=== PATIENT | male | born 1940 | race Caucasian/White ===

== ENCOUNTER 2018-02-01 08:48 | Outpatient (CLI) | payer OTHER, SELFPAY ==
[2018-02-01 09:30] LABS: Abs Immature Grans 0.01 k/cumm (0.0-0.09); Absolute Basophil Count 0.03 k/cumm (0.0-0.2); Absolute Eosinophil Count 0.27 k/cumm (0.0-0.7); Absolute Lymphocyte Count 0.96 k/cumm (1.2-3.4); Absolute Monocyte Count 0.47 k/cumm (0.11-0.7); Basophils % 0.7; Eosinophils % 6.5; HCT 38.5 % (40.0-50.0); HGB 12.9 g/dL (13.5-17.5); Immature Grans % 0.2; Lymphocytes % 23.2; Mean Corp. HGB Concentration 33.5 g/dL (32.0-36.0); Mean Corpuscular Hemoglobin 31.1 pg (27.0-33.0); Mean Corpuscular Volume 92.8 fL (80-95); Mean Platelet Volume 9.6 fL (8.0-11.0); Monocytes % 11.4; Platelet Count 283 x1000/uL (130-400); RBC 4.15 m/cumm (4.50-6.00); RBC Distribution Width 13.1 % (11.8-14.1); White Blood Cell Count 4.13 k/cumm (4.4-10.8)
[2018-02-01 10:44] LABS: Vitamin D 25 Total 56.1 ng/ml (30-100)
[2018-02-01 10:46] LABS: ALT 17 U/L (12-78); AST 17 U/L (15-37); Albumin 3.8 g/dL (3.4-5.0); Alkaline Phosphatase 75 U/L (46-116); Anion Gap 9.5 mmol/L (3-11); BUN 12 mg/dL (7-18); Bilirubin, Total 0.4 mg/dL (0.2-1.0); CO2 28.5 mmol/L (21.0-32.0); CREATININE 0.99 mg/dL (0.70-1.30); Chloride 100 mmol/L (98-107); Folate 16.9 ng/mL (8.6-20.0); Glucose 116 mg/dL (70-100); Potassium 4.1 mmol/L (3.5-5.1); Sodium 138 mmol/L (136-145); TSH (W/Ref FT4) 1.91 uIU/mL (0.358-3.74); Total Protein 8.5 g/dL (6.4-8.2); Vitamin B12 452 pg/mL (193-986)
== END 2018-02-01 09:08 ==
LOC: LBO 09:12 → NCHCO 09:17
PROVIDERS: PCP Family Medicine; Visit Provider Family Medicine
DX: R41.3 Other amnesia (principal); E87.1 Hypo-osmolality and hyponatremia; D70.9 Neutropenia, unspecified; F33.2 Major depressive disorder, recurrent severe without psychotic features
CPT/HCPCS: 36415; 80053; 82306; 82607; 82746; 84443; 85025

== ENCOUNTER 2018-05-31 07:56 | Outpatient (CLI) | payer OTHER, SELFPAY ==
[2018-05-31 08:30] LABS: Abs Immature Grans 0.01 k/cumm (0.0-0.09); Absolute Basophil Count 0.03 k/cumm (0.0-0.2); Absolute Eosinophil Count 0.13 k/cumm (0.0-0.7); Absolute Monocyte Count 0.36 k/cumm (0.11-0.7); Absolute Neutrophil Count 3.14 k/cumm (1.2-6.7); Basophils % 0.7; Eosinophils % 2.8; HCT 38.4 % (40.0-50.0); HGB 12.5 g/dL (13.5-17.5); Immature Grans % 0.2; Lymphocytes % 19.7; Mean Corp. HGB Concentration 32.6 g/dL (32.0-36.0); Mean Corpuscular Hemoglobin 31.6 pg (27.0-33.0); Mean Platelet Volume 9.9 fL (8.0-11.0); Monocytes % 7.9; Neutrophils % 68.7; Platelet Count 274 x1000/uL (130-400); RBC 3.96 m/cumm (4.50-6.00); RBC Distribution Width 12.9 % (11.8-14.1); White Blood Cell Count 4.57 k/cumm (4.4-10.8)
[2018-05-31 08:37] LABS: Hemoglobin A1C 5.5 % (4.5-6.2)
[2018-05-31 09:53] LABS: ALT 15 U/L (12-78); AST 15 U/L (15-37); Albumin 3.6 g/dL (3.4-5.0); Alkaline Phosphatase 81 U/L (46-116); Anion Gap 10.1 mmol/L (3-11); BUN 23 mg/dL (7-18); Bilirubin, Total 0.6 mg/dL (0.2-1.0); CO2 28.9 mmol/L (21.0-32.0); CREATININE 1.19 mg/dL (0.70-1.30); Calcium 9.9 mg/dL (8.5-10.1); Chloride 102 mmol/L (98-107); Cholesterol 141 mg/dL (50-200); Estimated GFR 59.28 (mL/min/1.73m2); Glucose 113 mg/dL (70-100); HDL Cholesterol 57 mg/dL (40-60); LDL CHOLESTEROL 69 mg/dL (<100); Potassium 4.1 mmol/L (3.5-5.1); Sodium 141 mmol/L (136-145); TSH (W/Ref FT4) 1.67 uIU/mL (0.358-3.74); Total Protein 8.7 g/dL (6.4-8.2); Triglyceride 76 mg/dL (30-150)
== END 2018-05-31 08:16 ==
PROVIDERS: PCP Family Medicine; Visit Provider Nurse Practitioner Psychiatric/Mental Health
DX: F32.2 Major depressive disorder, single episode, severe without psychotic features (principal); Z79.899 Other long term (current) drug therapy; Z13.6 Encounter for screening for cardiovascular disorders
CPT/HCPCS: 36415; 80053; 80061; 83721; 83036; 84443; 85025; 93005; 93010

== ENCOUNTER → 2018-07-07 12:26 | Outpatient (BNVA) | payer OTHER, SELFPAY | PROVIDERS: PCP Family Medicine; Referring Provider Family Medicine; Visit Provider Nurse Practitioner Adult Health | DX: G31.84 Mild cognitive impairment of uncertain or unknown etiology; R29.6 Repeated falls; G25.2 Other specified forms of tremor; R51 Headache | CPT/HCPCS: 99215 ==

== ENCOUNTER 2018-07-14 03:54 | Outpatient (CLI) | payer OTHER, SELFPAY ==
--- NOTE | 2018-07-14 15:24 | DI.MRI_ITS ---
SYMPTOMS/DIAGNOSIS: NEW HEADACHES, GAIT IMBALANCE, MEMORY DEFICIT, R51, R26.9 BRAIN MRI: The study was conducted according to the usual protocol. T2 sagittal, T2 axial, diffusion weighted axial, T2 axial HEMO, T1 axial, T2 axial FLAIR BLADE pulse sequences were performed. There is no evidence of a hemorrhage, mass or infarct. There are a few small regions of increased signal in the frontoparietal white matter bilaterally consistent with small vessel disease. The ventricles are unremarkable. The normal flow void is demonstrated in the cerebral vessels. There are small polyps or retention cysts involving the maxillary antra and there is some increased signal in the left frontal sinus. No mastoid pathology is demonstrated. Note is made of a rounded artifact projected over the high right posterior parietal portion of the skull. SUMMARY: No evidence of a hemorrhage, mass or infarct. Findings of minimal small vessel disease with incidental note made of left frontal sinus inflammatory changes and bilateral maxillary sinus polyps or retention cysts.
== END 2018-07-14 04:14 ==
PROVIDERS: PCP Family Medicine; Visit Provider Nurse Practitioner Adult Health
DX: R51 Headache (principal); R26.9 Unspecified abnormalities of gait and mobility; R41.3 Other amnesia; J32.9 Chronic sinusitis, unspecified
CPT/HCPCS: 70551

== ENCOUNTER 2018-07-14 04:27 | Outpatient (CLI) | payer OTHER, SELFPAY ==
[2018-07-14 11:51] LABS: ESR 101 MM/HR (1-20)
[2018-07-15 13:44] LABS: Comment SEE COMMENTS
== END 2018-07-14 04:47 ==
PROVIDERS: PCP Family Medicine; Visit Provider Nurse Practitioner Adult Health
DX: G62.9 Polyneuropathy, unspecified (principal)
CPT/HCPCS: 36415; 85652; 84165; 86320

== ENCOUNTER 2018-07-21 09:05 | Outpatient (CLI) | payer OTHER, SELFPAY ==
[2018-07-21 10:15] LABS: C-Reactive Protein 0.15 mg/dL (0.0-0.3)
[2018-07-22 12:19] LABS: Rheumatoid Factor <8 IU/mL (<12.5)
[2018-07-22 13:46] LABS: ANA Interpretation Positive (NEGAT); ANA Titer Pattern 1:160 Speckled
== END 2018-07-21 09:25 ==
PROVIDERS: PCP Family Medicine; Visit Provider Nurse Practitioner Adult Health
DX: R70.0 Elevated erythrocyte sedimentation rate (principal); G62.9 Polyneuropathy, unspecified
CPT/HCPCS: 36415; 86038; 86140; 86431

== ENCOUNTER → 2018-07-27 14:18 | Outpatient (BNVA) | payer OTHER, SELFPAY | PROVIDERS: PCP Family Medicine; Visit Provider Psychiatry & Neurology Neurology | DX: G25.0 Essential tremor (principal); G24.01 Drug induced subacute dyskinesia; I95.1 Orthostatic hypotension; G62.9 Polyneuropathy, unspecified; R51 Headache; R41.3 Other amnesia | CPT/HCPCS: 99215 ==

== ENCOUNTER 2018-07-28 08:45 | Outpatient (CLI) | payer OTHER, SELFPAY ==
[2018-07-29 11:16] LABS: SS-A Antibody 2.6 Units (<20); SS-B (La) Ab, IgG 2.8 Units (<20); Sm (Smith) Ab, IgG 2.8 Units (<20)
[2018-07-29 12:58] LABS: dsDNA Ab, IgG <12.3 IU/mL (<30)
== END 2018-07-28 09:05 ==
PROVIDERS: PCP Family Medicine; Visit Provider Psychiatry & Neurology Neurology
DX: G62.9 Polyneuropathy, unspecified (principal)
CPT/HCPCS: 36415; 86225; 86235

== ENCOUNTER → 2018-08-11 08:34 | Outpatient (BNVA) | payer OTHER, SELFPAY | PROVIDERS: PCP Family Medicine; Visit Provider Nurse Practitioner Adult Health | DX: R51 Headache (principal); G62.9 Polyneuropathy, unspecified; G31.84 Mild cognitive impairment of uncertain or unknown etiology; R26.89 Other abnormalities of gait and mobility | CPT/HCPCS: 99213 ==

== ENCOUNTER → 2018-09-27 10:42 | Outpatient (BNVA) | payer OTHER, SELFPAY | PROVIDERS: PCP Family Medicine; Visit Provider Psychiatry & Neurology Neurology | DX: G62.9 Polyneuropathy, unspecified (principal); D47.2 Monoclonal gammopathy; G25.0 Essential tremor; G20 Parkinson's disease; G24.01 Drug induced subacute dyskinesia; I95.1 Orthostatic hypotension; R51 Headache; R41.3 Other amnesia | CPT/HCPCS: 99214 ==

== ENCOUNTER 2018-11-08 00:31 | Outpatient (CLI) | payer OTHER, SELFPAY ==
--- NOTE | 2018-11-08 09:19 | DI.US_ITS ---
SYMPTOM/DIAGNOSIS: RT CALF PAIN, M79.661, RT LEG EDEMA R60.0, NOTED SWELLING AND PAIN S/P DRIVE TO PA. ? DVT RIGHT LOWER EXTREMITY ULTRASOUND: The deep veins of the right lower extremity were evaluated sonographically. They show normal compression, augmentation and color flow. There is no evidence of a deep venous thrombus. The saphenofemoral junction appears unremarkable. IMPRESSION: No evidence of a right lower extremity deep venous thrombus.
== END 2018-11-08 00:51 ==
PROVIDERS: PCP Family Medicine; Visit Provider Family Medicine
DX: M79.661 Pain in right lower leg (principal); R60.0 Localized edema
CPT/HCPCS: 93971

== ENCOUNTER → 2018-11-09 08:30 | Outpatient (BNVA) | payer OTHER, SELFPAY | PROVIDERS: PCP Family Medicine; Visit Provider Psychiatry & Neurology Neurology | DX: G62.9 Polyneuropathy, unspecified (principal); G20 Parkinson's disease; G24.01 Drug induced subacute dyskinesia; I95.1 Orthostatic hypotension; R51 Headache; R41.3 Other amnesia | CPT/HCPCS: 99214 ==

== ENCOUNTER 2018-11-18 09:56 | Outpatient (CLI) | payer OTHER, SELFPAY ==
[2018-11-18 11:32] LABS: Vitamin D 25 Total 56.2 ng/ml (30-100)
== END 2018-11-18 10:16 ==
PROVIDERS: PCP Family Medicine; Visit Provider Nurse Practitioner Psychiatric/Mental Health
DX: F32.2 Major depressive disorder, single episode, severe without psychotic features (principal); Z79.899 Other long term (current) drug therapy
CPT/HCPCS: 36415; 82306

== ENCOUNTER → 2018-12-27 08:08 | Outpatient (BNVA) | payer OTHER, SELFPAY | PROVIDERS: PCP Family Medicine; Visit Provider Nurse Practitioner Adult Health | DX: R51 Headache (principal); R41.89 Other symptoms and signs involving cognitive functions and awareness; G62.9 Polyneuropathy, unspecified | CPT/HCPCS: 99213 ==

== ENCOUNTER 2019-01-10 13:45 | Outpatient (CLI) | payer OTHER, SELFPAY ==
[2019-01-10 14:38] LABS: HCT 35.6 % (40.0-50.0); HGB 12.1 g/dL (13.5-17.5); Mean Corpuscular Hemoglobin 33.2 pg (27.0-33.0); Mean Corpuscular Volume 97.8 fL (80-95); Platelet Count 293 x1000/uL (130-400); RBC 3.64 m/cumm (4.50-6.00); RBC Distribution Width 13.2 % (11.8-14.1); White Blood Cell Count 5.38 k/cumm (4.4-10.8)
--- NOTE | 2019-01-10 14:43 | DI.RAD_ITS ---
EXAM: XR CHEST 2V PA LATERAL CLINICAL HISTORY: CHEST PAIN, ATYPICAL R07.89. TECHNIQUE: 2D digital imaging was performed. COMPARISON: CHEST 2 VIEWS PA,LAT from 01/11/2016 FINDINGS: LUNGS: Clear. No pleural effusion or pneumothorax is identified. HEART: Normal. MEDIASTINUM: The pulmonary vasculature is within normal limits. OTHER FINDINGS:Normal. Bones: Age appropriate degenerative changes are seen in the spine. IMPRESSION: No acute pulmonary findings.
[2019-01-10 15:19] LABS: ALT 18 U/L (16-63); AST 9 U/L (15-37); Albumin 3.7 g/dL (3.4-5.0); Alkaline Phosphatase 72 U/L (46-116); Anion Gap 9.9 mmol/L (3-11); BUN 15 mg/dL (7-18); Bilirubin, Total 0.3 mg/dL (0.2-1.0); CO2 29.1 mmol/L (21.0-32.0); Calcium 9.7 mg/dL (8.5-10.1); Chloride 105 mmol/L (98-107); Glucose 149 mg/dL (70-100); Lipase 63 U/L (73-393); Potassium 3.7 mmol/L (3.5-5.1); Sodium 144 mmol/L (136-145); Total Protein 8.5 g/dL (6.4-8.2)
== END 2019-01-10 14:05 ==
PROVIDERS: PCP Family Medicine; Visit Provider Family Medicine
DX: R10.11 Right upper quadrant pain (principal); R07.89 Other chest pain
CPT/HCPCS: 36415; 80053; 83690; 85027; 71046

== ENCOUNTER 2019-01-14 16:26 | Emergency (ER) | payer OTHER, SELFPAY ==
[2019-01-14] VITALS (32 sets, daily range): BP systolic 136–183; BP diastolic 73–101; PULSE 76–94; RESP 11–21; O2SAT 84–98
--- NOTE | 2019-01-14 17:14 | DI.CT_ITS ---
EXAM: CT HEAD WO CLINICAL HISTORY: dizzy. COMPARISON: No exams were available for comparison FINDINGS: There is no evidence of an intra or extra-axial hemorrhage, mass or midline shift. There is nothing to suggest a territorial infarct. Patchy regions of hypodensity in the periventricular and subcortic al white matter would be consistent with small vessel disease. There is generalized atrophic changes with some prominence of the ventricles. There is no skull fracture. There is mucosal thickening in t he left frontal and bilateral ethmoid and sphenoid and maxillary sinuses. The mastoid air cells are well aerated. The soft tissues are unremarkable. IMPRESSION: No acute intracranial abnormality is identified.
--- NOTE | 2019-01-14 17:34 | DI.RAD_ITS ---
EXAM: XR CHEST 2V PA LATERAL INDICATION: recent chest pain. COMPARISON: XR CHEST 2V PA LATERAL from 01/10/2019 TECHNIQUE: 2D digital imaging was performed. FINDINGS: The lungs are well expanded and free of infiltrate. There is no pleural effusion. The heart is not en larged. The hilar structures, mediastinum and tracheal air column are intact. Old healed left rib f ractures are identified. IMPRESSION: There is no evidence of acute cardiopulmonary disease
[2019-01-14 17:52] LABS: Absolute Basophil Count 0.01 k/cumm (0.0-0.2); Absolute Monocyte Count 0.37 k/cumm (0.11-0.7); Basophils % 0.2; Eosinophils % 1.9; HCT 37.8 % (40.0-50.0); HGB 12.5 g/dL (13.5-17.5); Lymphocytes % 16.7; Mean Corp. HGB Concentration 33.1 g/dL (32.0-36.0); Mean Corpuscular Hemoglobin 31.5 pg (27.0-33.0); Mean Corpuscular Volume 95.2 fL (80-95); Mean Platelet Volume 9.5 fL (8.0-11.0); Monocytes % 6.9; Neutrophils % 74.3; Platelet Count 302 x1000/uL (130-400); RBC 3.97 m/cumm (4.50-6.00); RBC Distribution Width 12.8 % (11.8-14.1); White Blood Cell Count 5.38 k/cumm (4.4-10.8)
[2019-01-14] MEDS: Lisinopril 5 MG TAB PO (18:09)
[2019-01-14 18:11] LABS: ALT 14 U/L (16-63); AST 12 U/L (15-37); Albumin 3.7 g/dL (3.4-5.0); Alkaline Phosphatase 76 U/L (46-116); Anion Gap 8.9 mmol/L (3-11); BUN 11 mg/dL (7-18); Bilirubin, Total 0.4 mg/dL (0.2-1.0); CO2 31.1 mmol/L (21.0-32.0); CREATININE 1.06 mg/dL (0.70-1.30); Calcium 9.6 mg/dL (8.5-10.1); Chloride 101 mmol/L (98-107); Glucose 132 mg/dL (70-100); Magnesium 2.1 mg/dL (1.8-2.4); Potassium 3.6 mmol/L (3.5-5.1); Sodium 141 mmol/L (136-145); Troponin I < 0.05 ng/mL (0.00-0.06)
--- NOTE | 2019-01-14 18:24 | W.ED.GENAD ---
Discharge Plan Disposition Patient Disposition: HOME Discharge Details Chief Complaint: GenMedical Clinical Impression: Generalized weakness, Frequent falls, Hypertension Primary Care Provider: Maria R Woods ED Provider: Familia Coughlin Home Meds and New Rx's Prescriptions: New lisinopril 5 mg tablet 5 mg PO DAILY Qty: 30 RF: 0 Continued lamotrigine [Lamictal] 100 mg tablet 200 mg PO DAILY RF: 0 gabapentin 100 mg capsule 100 mg PO TID RF: 0 pyridostigmine bromide 60 mg tablet 30 mg PO DIRECTED Qty: 90 RF: 3 cyanocobalamin (vitamin B-12) [Vitamin B-12] 1,000 MCG tablet 1,000 mcg PO DAILY RF: 0 omeprazole 40 MG capsule,delayed release(DR/EC) 40 mg PO DAILY RF: 0 simvastatin 40 MG tablet 40 mg PO QPM RF: 0 phenelzine 15 mg tablet 15 mg PO HS RF: 0 cholecalciferol (vitamin D3) [Vitamin D3] 2,000 UNIT capsule 2,000 unit PO DAILY RF: 0 Discharge Instructions Instructions: Fall Prevention for Older Adults (ED), Weakness (ED), Hypertension (ED) Additional Instructions: Please contact your primary care physician to arrange follow-up. Monitor your blood pressure over the next couple days. Continue blood pressure medicine as prescribed. Please follow-up with your neurologist. Return to the ER for any worsening or new concerning symptoms. Referrals: Maria R Woods MD [Primary Care Provider] - Discharge Data Discharge Date/Time-TO BE ENTERED AT DEPARTURE: 01/14/19 20:00 Medical Decision Making 18:42 -- 78-year-old male with history of Parkinson's dementia here with frequent falls, generalized weakness, elevated blood pressure over the past 2 weeks. Patient quite hypertensive on arrival with blood pressure of 183/101. According to his PCP, normal blood pressure systolic is around 100 or 110s. Concern for potential hypertensive emergency vs progression and worsening of Parkinson's disease vs less likely CVA. Screening ECG was reviewed and interpreted by me: Normal sinus rhythm 70 bpm, normal axis, nondiagnostic. Patient was reassessed and his blood pressure improved to systolic of 150s. He was given a dose of lisinopril [address] of the head was interpreted by radiology: No acute intracranial hemorrhage, mass-effect or midline shift. There are patchy regions of hypodensity in the periventricular and subcortical white matter likely on the basis of chronic microvascular ischemic disease. Plan to repeat blood pressure and reassess the patient. 19:45 --labs reviewed and nondiagnostic. Creatinine normal. Chest x-ray reviewed and interpreted by radiology: No consolidation or pulmonary edema. Hyperinflated lungs which may represent emphysema. I reviewed all results with the patient. He notes that he is feeling better. Suggested admission for generalized weakness and patient declined. He and his would prefer to go home and are agreeable to continuing lisinopril. They plan to follow-up with Dr. Woods on Thursday. Disposition decision was made weighing the risks and benefits of hospitalization versus outpatient treatment, the risk for further decompensation, and the patient's wishes. The patient was stable and requested discharge. Prior to discharge, my usual and customary return precautions were reviewed with the patient - this included follow-up instructions and reason to return to the emergency department if condition worsens, does not improve as expected, or other new concerns arise. HPI General Mode of arrival: ambulatory. Date/Time Provider Initiated Documentation: 01/14/19 16:48. Limitations to Documentation: no limitations. Information obtained by: patient. HPI Narrative: 78-year-old male with multiple medical problems including Parkinson's dementia, cognitive impairment, here with chief complaint of elevated blood pressure. Patient notes he has had elevated blood pressure over the past 1 to 2 weeks. Blood pressures been as severely elevated and high as 200 systolic. Patient also notes frequent falls over the past week. Patient is a poor historian limiting HPI. He does not believe he has syncope when he falls. He denies dizziness prior to the falls. is concerned that he is generally weak and having difficulty ambulating and this is resulting in falls. I called and spoke with the patient's PCP, Dr. Woods, who notes that she is been monitoring his blood pressure and thought that may be the addition of vraylar has affected blood pressure. She is concerned about potential hypertensive emergency. Related Data Home Medications Medication Instructions Recorded Confirmed cyanocobalamin (vitamin B-12) 1,000 mcg PO DAILY 09/09/12 01/14/19 [Vitamin B-12] omeprazole 40 mg PO DAILY 09/09/12 01/14/19 simvastatin 40 mg PO QPM 09/09/12 01/14/19 cholecalciferol (vitamin D3) 2,000 unit PO DAILY 09/13/14 01/14/19 [Vitamin D3] gabapentin 100 mg capsule 100 mg PO TID cap 11/09/18 01/14/19 pyridostigmine bromide 60 mg tablet 30 mg PO DIRECTED #90 tab 11/09/18 01/14/19 lamotrigine 100 mg tablet 200 mg PO DAILY tab 12/27/18 01/14/19 phenelzine 15 mg tablet 15 mg PO HS tab 12/27/18 01/14/19 lisinopril 5 mg PO DAILY #30 tab 01/14/19 Previous Rx's Medication Instructions Recorded pyridostigmine bromide 60 mg tablet 30 mg PO DIRECTED #90 tab 11/09/18 lisinopril 5 mg PO DAILY #30 tab 01/14/19 Allergies Allergy/AdvReac Type Severity Reaction Status Date / Time Penicillins Allergy Intermediate hands and Unverified 01/14/19 16:39 feet swell General Stated Complaint: GenMedical NEHA: 3 Review of Systems Review of Systems Narrative: Review of systems is limited secondary to dementia Constitutional Constitutional: Denies fever(s) Cardiovascular Cardiovascular: Denies chest pain, Denies syncope, Denies dyspnea and Reports other (Has had some left arm pain intermittently and not currently) Respiratory Respiratory: Denies dyspnea Gastrointestinal Gastrointestinal: Denies abdominal pain Neurologic Neurologic: Denies syncope [facility] Medical History Adenoma of colon (Acute) BPH (benign prostatic hyperplasia) (Chronic) Cognitive impairment (Acute) Depression (Chronic) Dyspepsia (Acute) Frequent headaches (Acute) Hyperlipidemia (Acute) Inguinal hernia (Acute) Lipoma (Acute) Neutropenia (Acute) Non Hodgkin's lymphoma (Chronic) Orthostatic hypotension (Chronic) Parkinsonism (Chronic) Peripheral neuropathy (Chronic) Tardive dyskinesia (Chronic) Thyroid nodule (Acute) Surgical History ankle H/O surgical procedure (Chronic) a. appendectomy b. cholecystectomy c. resection of benign tumor right lung Family History Other Stroke Social History Smoking/Tobacco Use Status: Former Tobacco Use Drug use: Never Household members: spouse What is your relationship status?: Panel score (0-1 are the most socially isolated patients): 1 Do you feel safe at home: Yes Do you feel safe in your relationship?: Yes Exam Const General: cooperative and no acute distress HENMT Head: normocephalic and atraumatic Mouth: moist mucous membranes Eyes Conjunctivae: normal conjunctivae Sclera: normal sclerae EOM: EOM intact bilaterally Neck Neck: trachea midline and supple Resp Auscultation: clear to auscultation bilaterally, no rales, no rhonchi and no wheezes Cardio Jugular venous pressure: no JVD Rate: regular rate and not tachycardic Rhythm: regular rhythm GI Palpation: soft, not firm, no guarding, no masses, not rigid and nontender Skin General skin exam: no rashes or lesions noted Neuro General: alert, awake and tone normal Cognition: abnormal cognition Speech: speech normal Motor: other (strength 4/5 throughout) Sensory Exam: no sensory deficits noted Coordination: [id number] test abnormal (past pointing initially bilateral and then improves) Extrem General: no edema Psych Appearance: grossly normal Course Vital Signs Vital signs: Vital Signs Pulse 84 01/14/19 16:35 Respiratory Rate 18 01/14/19 16:35 Blood Pressure 183/101 H 01/14/19 16:35 Pulse Oximetry 98 01/14/19 16:35 Pulse 76 01/14/19 18:00 Pulse 79 01/14/19 18:01 Respiratory Rate 14 01/14/19 18:01 Respiratory Effort 01/14/19 17:15 Respiratory Depth Normal 01/14/19 17:15 Blood Pressure 154/90 H 01/14/19 18:00 Blood Pressure Mean 105 01/14/19 18:00 Blood Pressure Position Sitting 01/14/19 16:35 Pulse Oximetry 96 01/14/19 18:01 Oxygen Delivery Method Room Air 01/14/19 16:35 Oxygen Flow Rate 0 01/14/19 16:35 Lab/Test Results Lab/Test Results: Laboratory Tests Range/Units 01/14/19 01/14/19 17:45 17:45 WBC (4.4-10.8) k/cumm 5.38 RBC (4.50-6.00) m/cumm 3.97 L Hgb (13.5-17.5) g/dL 12.5 L Hct (40.0-50.0) % 37.8 L MCV (80-95) fL 95.2 H MCH (27.0-33.0) pg 31.5 MCHC (32.0-36.0) g/dL 33.1 RDW (11.8-14.1) % 12.8 Plt Count (130-400) x1000/uL 302 MPV (8.0-11.0) fL 9.5 Immature Gran % 0.0 Neutrophils % 74.3 Lymphocytes % 16.7 Monocytes % 6.9 Eosinophils % 1.9 Basophils % 0.2 Absolute Neutrophils (1.2-6.7) k/cumm 4.00 Absolute Lymphocytes (1.2-3.4) k/cumm 0.90 L Absolute Monocytes (0.11-0.7) k/cumm 0.37 Absolute Eosinophils (0.0-0.7) k/cumm 0.10 Absolute Basophils (0.0-0.2) k/cumm 0.01 Sodium (136-145) mmol/L 141 Potassium (3.5-5.1) mmol/L 3.6 Chloride (98-107) mmol/L 101 Carbon Dioxide (21.0-32.0) mmol/L 31.1 Anion Gap (3-11) mmol/L 8.9 BUN (7-18) mg/dL 11 Creatinine (0.70-1.30) mg/dL 1.06 Estimated GFR/1.73 m2 (mL/min/1.73m2) >= 60.00 Glucose (70-100) mg/dL 132 H Calcium (8.5-10.1) mg/dL 9.6 Magnesium (1.8-2.4) mg/dL 2.1 Total Bilirubin (0.2-1.0) mg/dL 0.4 AST (15-37) U/L 12 L ALT (16-63) U/L 14 L Alkaline Phosphatase (46-116) U/L 76 Troponin I (0.00-0.06) ng/mL < 0.05 Total Protein (6.4-8.2) g/dL 9.0 H Albumin (3.4-5.0) g/dL 3.7
--- NOTE | 2019-01-14 18:35 | DI.VRAD_ITS ---
PROCEDURE INFORMATION: Exam: CT Head without contrast Exam date and time: 01/14/2019 6:19 PM Clinical history: 78 years old, male; Dizziness; Patient HX: Dizzy TECHNIQUE: Imaging protocol: Computed tomography of the head without contrast. COMPARISON: MR brain wo 07/14/2018 12:34 PM FINDINGS: Brain: There is no acute intracranial hemorrhage, mass effect or midline shift. No large acute territorial infarct identified. There are patchy regions of hypodensity in the periventricular and subcortical white matter, likely on the basis of chronic microvascular ischemic disease. Ventricles: The ventricles and sulci are prominent in size, which is likely related to global cerebral volume loss. Bones/joints: Unremarkable. No acute fracture. Sinuses: There is mucosal thickening in the left frontal and bilateral ethmoid, sphenoid and maxillary sinuses. Mastoid air cells: Visualized mastoid air cells are well aerated. Soft tissues: Unremarkable. IMPRESSION: No acute intracranial hemorrhage, mass effect or midline shift. Dictated and Authenticated by: Mariam Kauffman MD. Ordering:JUAN Barbosa MD
--- NOTE | 2019-01-14 18:52 | DI.VRAD_ITS ---
PROCEDURE INFORMATION: Exam: XR Chest, 2 Views Exam date and time: 01/14/2019 6:31 PM Clinical history: 78 years old, male; Other: Recent chest apin TECHNIQUE: Imaging protocol: XR of the chest Views: 2 views. COMPARISON: CR XR CHEST 2V PA LATERAL 01/10/2019 2:36 PM FINDINGS: Lungs: No consolidation. The lungs appear slightly hyperinflated which can be seen in the setting of emphysema. Pleural space: Unremarkable. No pleural effusion. No pneumothorax. Heart/Mediastinum: Unremarkable. No cardiomegaly. Bones/joints: Unremarkable. IMPRESSION: No consolidation or pulmonary edema. Hyperinflated lungs may represent emphysema. Dictated and Authenticated by: Mariam Kauffman MD. Ordering:JUAN Barbosa MD
--- NOTE | 2019-01-14 19:58 | NUR.NOTE ---
Nursing Note: ambulated pt with 2 person standby assist. Pt was very steady in comparison when he arrived. discussed with pt and about going home tonight
== END 2019-01-14 20:00 | disposition home or self-care (01) ==
PROVIDERS: Emergency Provider Student in an Organized Health Care Education/Training Program; PCP Family Medicine
DX: R53.1 Weakness (principal); R29.6 Repeated falls; I10 Essential (primary) hypertension
CPT/HCPCS: 36415; 36416; 80053; 82962; 99285; 70450; 71046; 83735; 84484; 85025; 99284

== ENCOUNTER 2019-01-20 00:28 | Outpatient (CLI) | payer OTHER, SELFPAY ==
--- NOTE | 2019-01-20 09:30 | DI.NM_ITS ---
APPROVED REPORT Exam: Pharmacologic Patient Location: Out-Patient Room/Bed: Stress Nurse: Neha Pratt RN Rhythm: NSR Indications: Patient reports on and off chest pains with and without activity at least two times a da y. Pt reports he will experience a dull ache in his left chest, it will be associated with an ache in his left inner elbow but no other associated symptoms. These symptoms will happen when walking stacey und or with sitting in a chair. Symptoms will only last about 30 seconds each time. Pt is a former betty. Medical History Medical History: Hyperlipidemia Medications: Simvastatin. Lisinopril. Allergies: No known drug allergies Cardiac Risk Factors: Smoking Pretest Chest Pain Characteristics: Exertional Chest pain Exercise History: Indeterminate Physical Disabilities: Legs Stress Test Details Test: Pharmacologic stress testing performed using 0.4 mg of regadenoson per 5 mL given IV over 10 s econds. Nuclear Acquisition: Rest Tc-99m/Stress Tc-99m 1 day Rest Isotope: Tc-99m Sestamibi. Dose: 12.1 Date: 01/20/2019 Injection Time: 0945 Stress Isotope: Tc-99m Sestamibi. Dose: 36.0 Date: 01/20/2019 Injection Time: 1200 HR Resting HR: 84 bpm Max Heart Rate (APMHR): 143 bpm Max HR Achieved: 97 bpm Target HR (85% APMHR): 121 bpm % of APMHR: 67 Recovery HR: 92 bpm HR response to stress: Normal HR response to stress BP Resting BP: 176/98 mmHg Max BP: 176/98 mmHg Recovery BP: 170/84 mmHg ECG Resting ECG: Sinus Rhythm, abnormal R wave progression, early transition Stress ECG: Sinus Rhythm ST Change: Normal Arrhythmia: None Recovery ECG: Sinus Rhythm Recovery ST Change: Normal Recovery Arrhythmia: None Clinical Reason for Termination: Completed protocol Angina Score: None Stress ECG Conclusion 1. There is no evidence of ischemia on the EKG portion of the study MPI Conclusion There is significant bowel uptake which limits the interpretation of the study but there is no induci ble ischemia on SPECT imaging. This represents a normal stress test
[2019-01-20] MEDS: Regadenoson 0.4 MG/5 ML SYR IVP (11:56)
== END 2019-01-20 00:48 ==
PROVIDERS: PCP Family Medicine; Visit Provider Family Medicine
DX: R07.9 Chest pain, unspecified (principal); E78.5 Hyperlipidemia, unspecified; Z87.891 Personal history of nicotine dependence
CPT/HCPCS: 78452; 93016; 93018; 93017; J2785

== ENCOUNTER 2019-01-27 00:36 | Outpatient (CLI) | payer OTHER, SELFPAY ==
--- NOTE | 2019-01-27 11:37 | DI.MRI_ITS ---
EXAM: MR BRAIN WO CLINICAL HISTORY: DIZZINESS, R42. TECHNIQUE: Multiplanar multisequence MRI was performed. COMPARISON: MR brain wo from 07/14/2018 CT HEAD WO from 01/14/2019 FINDINGS: A metallic artifact is seen in the scalp of the right parietal vertex. No intracranial hemorrhage, mass or infarct is seen. The ventricles are unchanged in size. Mucous retention cysts are again no shahriar in the maxillary sinuses. The vascular flow voids appear intact. The mastoid air cells appear c lear. The orbits are unremarkable. There is mild atrophy and few tiny scattered high signal lesions in the white matter likely reflecting small microvascular disease. IMPRESSION: Atrophy and mild white matter changes microvascular disease. No acute abnormality.
== END 2019-01-27 00:56 ==
PROVIDERS: PCP Family Medicine; Visit Provider Family Medicine
DX: R42 Dizziness and giddiness (principal); R90.82 White matter disease, unspecified; G31.89 Other specified degenerative diseases of nervous system
CPT/HCPCS: 70551

== ENCOUNTER → 2019-01-31 10:40 | Outpatient (BNVA) | payer OTHER, SELFPAY | PROVIDERS: PCP Family Medicine; Referring Provider Family Medicine; Visit Provider Psychiatry & Neurology Neurology | DX: G20 Parkinson's disease; G24.01 Drug induced subacute dyskinesia; G57.02 Lesion of sciatic nerve, left lower limb; G63 Polyneuropathy in diseases classified elsewhere; I95.1 Orthostatic hypotension; M21.372 Foot drop, left foot; R41.3 Other amnesia; R51 Headache | CPT/HCPCS: 99215 ==

== ENCOUNTER → 2019-03-29 10:12 | Outpatient (BNVA) | payer OTHER, SELFPAY | PROVIDERS: PCP Family Medicine; Referring Provider Family Medicine; Visit Provider Nurse Practitioner Adult Health | DX: G20 Parkinson's disease (principal); G24.01 Drug induced subacute dyskinesia; G63 Polyneuropathy in diseases classified elsewhere; M79.662 Pain in left lower leg; G25.0 Essential tremor; R51 Headache | CPT/HCPCS: 99214 ==

== ENCOUNTER → 2019-07-26 08:49 | Outpatient (BNVA) | payer OTHER, SELFPAY | PROVIDERS: PCP Family Medicine; Referring Provider Family Medicine; Visit Provider Nurse Practitioner Adult Health | DX: R51 Headache (principal); G25.0 Essential tremor; R41.89 Other symptoms and signs involving cognitive functions and awareness; G63 Polyneuropathy in diseases classified elsewhere | CPT/HCPCS: 99213; 99442 ==

== ENCOUNTER 2019-12-15 14:33 | Outpatient (REF) | payer OTHER, SELFPAY ==
[2019-12-17 22:23] LABS: Patient Race White; SARS-CoV-2 RNA Undetected (Undetected); SARS-CoV-2 Specimen Source Nasopharynx
== END 2019-12-15 14:53 ==
LOC: NCHCN 14:33
PROVIDERS: PCP Family Medicine; Visit Provider Nurse Practitioner Family
DX: Z20.828 Contact with and (suspected) exposure to other viral communicable diseases (principal)
CPT/HCPCS: U0003

== ENCOUNTER 2020-01-06 03:00 | Outpatient (CLI) | payer OTHER, SELFPAY ==
[2020-01-06 15:18] LABS: Abs Immature Grans 0.01 10^3/uL (0.0-0.06); Absolute Basophil Count 0.03 10^3/uL (0.0-0.2); Absolute Eosinophil Count 0.09 10^3/uL (0.0-0.7); Absolute Lymphocyte Count 0.89 10^3/uL (1.2-3.4); Absolute Monocyte Count 0.39 10^3/uL (0.1-0.8); Absolute Neutrophil Count 3.27 10^3/uL (1.2-6.7); Basophils % 0.6; Eosinophils % 1.9; HCT 37.4 % (40.0-50.0); HGB 12.6 g/dL (13.5-17.5); Immature Grans % 0.2; MCH 32.1 pg (27.0-33.0); MCHC 33.7 % (32.0-36.0); MCV 95.2 fL (80-95); MPV 9.8 fL (8.0-11.0); Monocytes % 8.3; Nucleated RBC 0 %; Platelet Count 297 10^3/uL (130-400); RBC 3.93 10^6/uL (4.36-5.78); RDW 12.5 % (11.8-14.1); RDW-SD 43.8 fL; WBC 4.68 10^3/uL (4.4-10.8)
[2020-01-06 16:33] LABS: ALT 21 U/L (16-63); AST 14 U/L (15-37); Albumin 3.7 g/dL (3.4-5.0); Alkaline Phosphatase 67 U/L (46-116); Anion Gap 7.8 mmol/L (3-11); BUN 21 mg/dL (7-18); Bilirubin, Total 0.3 mg/dL (0.2-1.0); CO2 29.2 mmol/L (21.0-32.0); CREATININE 1.12 mg/dL (0.70-1.30); Calcium 9.8 mg/dL (8.5-10.1); Chloride 105 mmol/L (98-107); Glucose 122 mg/dL (74-106); Sodium 142 mmol/L (136-145); Total Protein 8.5 g/dL (6.4-8.2)
[2020-01-09 10:30] LABS: IgA 62 mg/dL (85-499); IgG 657 mg/dL (610-1,616); IgM 2866 mg/dL (35-242)
[2020-01-09 12:43] LABS: Albumin 47.2 % (55.8-66.1); Comment (See Note); Monoclonal Spike 23.2 % (None Seen); Total Protein 8.9 g/dL (6.3-8.2)
== END 2020-01-06 03:20 ==
PROVIDERS: PCP Family Medicine; Visit Provider Internal Medicine Hematology & Oncology
DX: D47.2 Monoclonal gammopathy (principal)
CPT/HCPCS: 36415; 80053; 82784; 83883; 84165; 85025

== ENCOUNTER → 2020-01-25 09:32 | Outpatient (BNVA) | payer OTHER, SELFPAY | PROVIDERS: PCP Family Medicine; Referring Provider Family Medicine; Visit Provider Nurse Practitioner Adult Health | DX: G20 Parkinson's disease (principal); R41.89 Other symptoms and signs involving cognitive functions and awareness; G25.0 Essential tremor; G63 Polyneuropathy in diseases classified elsewhere | CPT/HCPCS: 99213 ==

== ENCOUNTER → 2020-03-27 07:27 | Outpatient (BNVA) | payer OTHER, SELFPAY | PROVIDERS: PCP Family Medicine; Referring Provider Family Medicine; Visit Provider Nurse Practitioner Adult Health | DX: G20 Parkinson's disease (principal); R41.89 Other symptoms and signs involving cognitive functions and awareness | CPT/HCPCS: 99213; 99441 ==

== ENCOUNTER → 2020-07-24 12:44 | Outpatient (BNVA) | payer OTHER, SELFPAY | PROVIDERS: PCP Family Medicine; Referring Provider Family Medicine; Visit Provider Nurse Practitioner Adult Health | DX: R41.89 Other symptoms and signs involving cognitive functions and awareness (principal); G25.0 Essential tremor | CPT/HCPCS: 99213 ==

== ENCOUNTER → 2020-12-19 08:46 | Outpatient (BNVA) | payer OTHER, SELFPAY | PROVIDERS: PCP Family Medicine; Referring Provider Family Medicine; Visit Provider Nurse Practitioner Adult Health | DX: G63 Polyneuropathy in diseases classified elsewhere (principal); G25.0 Essential tremor; R26.89 Other abnormalities of gait and mobility; G62.9 Polyneuropathy, unspecified | CPT/HCPCS: 99213; 99215 ==

== ENCOUNTER 2020-12-25 01:23 | Outpatient (CLI) | payer OTHER, SELFPAY ==
[2020-12-25 08:31] LABS: Abs Immature Grans 0.01 10^3/uL (0.0-0.06); Absolute Basophil Count 0.03 10^3/uL (0.0-0.2); Absolute Eosinophil Count 0.13 10^3/uL (0.0-0.7); Absolute Monocyte Count 0.29 10^3/uL (0.1-0.8); Absolute Neutrophil Count 2.46 10^3/uL (1.2-6.7); Basophils % 0.8; Eosinophils % 3.4; HCT 37.5 % (40.0-50.0); HGB 12.5 g/dL (13.5-17.5); Immature Grans % 0.3; Lymphocytes % 23.6; MCH 32.2 pg (27.0-33.0); MCHC 33.3 % (32.0-36.0); MCV 96.6 fL (80-95); MPV 9.6 fL (8.0-11.0); Monocytes % 7.6; Neutrophils % 64.3; Nucleated RBC 0 %; Platelet Count 249 10^3/uL (130-400); RBC 3.88 10^6/uL (4.36-5.78); RDW 12.3 % (11.8-14.1); RDW-SD 42.9 fL; WBC 3.82 10^3/uL (4.4-10.8)
[2020-12-25 08:45] LABS: Hemoglobin A1C 5.4 % (<5.7)
[2020-12-25 10:14] LABS: Magnesium 2.2 mg/dL (1.8-2.4)
[2020-12-25 10:45] LABS: ALT 24 U/L (16-63); AST 13 U/L (15-37); Albumin 3.7 g/dL (3.4-5.0); Alkaline Phosphatase 67 U/L (46-116); Anion Gap 7.4 mmol/L (3-11); BUN 20 mg/dL (7-18); Bilirubin, Total 0.4 mg/dL (0.2-1.0); CO2 30.6 mmol/L (21.0-32.0); CREATININE 1.2 mg/dL (0.70-1.30); Calcium 9.5 mg/dL (8.5-10.1); Calculated LDL 76 mg/dL (<100); Chloride 105 mmol/L (98-107); Cholesterol 139 mg/dL (<200); Ferritin 45 ng/mL (26-388); Glucose 102 mg/dL (74-106); HDL Cholesterol 51 mg/dL (40-60); Potassium 4.7 mmol/L (3.5-5.1); Sodium 143 mmol/L (136-145); TSH 1.98 uIU/mL (0.36-3.74); Total Protein 8.3 g/dL (6.4-8.2); Triglyceride 61 mg/dL (<150); Vitamin B12 1209 pg/mL (193-986)
[2020-12-25 11:03] LABS: C-Reactive Protein 0.19 mg/dL (0.0-0.3); FREE T4 0.86 ng/dL (0.76-1.46)
[2020-12-25 16:31] LABS: T3,Free 3.5 pg/mL (2.8-5.3)
[2020-12-26 09:40] LABS: IgA 59 mg/dL (85-499); IgG 631 mg/dL (610-1,616); IgM 2764 mg/dL (35-242); Kappa Free Light Chain 4.62 mg/dL (0.33-1.94); Lambda Free Light Chain 13.14 mg/dL (0.57-2.63)
[2020-12-26 13:46] LABS: Albumin 52.2 % (55.8-66.1); Comment (See Note); Monoclonal Spike 19.5 % (None Seen); Total Protein 8.9 g/dL (6.3-8.2)
[2020-12-27 00:54] LABS: Vitamin D 25 Total 52.7 ng/mL (30-100)
== END 2020-12-25 01:24 | disposition home or self-care (01) ==
LOC: LBO 01:23
PROVIDERS: Internal Medicine Hematology & Oncology; PCP Family Medicine; Visit Provider Psychiatry & Neurology Psychiatry
DX: I10 Essential (primary) hypertension; D47.2 Monoclonal gammopathy; F32.2 Major depressive disorder, single episode, severe without psychotic features; Z79.899 Other long term (current) drug therapy; R26.89 Other abnormalities of gait and mobility; R79.89 Other specified abnormal findings of blood chemistry
CPT/HCPCS: 36415; 80053; 80061; 82306; 82784; 82607; 82728; 83036; 83735; 83883; 84165; 84439; 84443; 84481; 85025; 86140

== ENCOUNTER → 2021-04-29 12:21 | Outpatient (BNVA) | payer MEDICARE, SELFPAY | PROVIDERS: PCP Family Medicine; Referring Provider Family Medicine; Visit Provider Nurse Practitioner Adult Health | DX: R41.89 Other symptoms and signs involving cognitive functions and awareness (principal); R41.3 Other amnesia; R26.81 Unsteadiness on feet | CPT/HCPCS: 99213; 99214 ==

== ENCOUNTER → 2021-07-01 08:17 | Outpatient (BNVA) | payer MEDICARE, SELFPAY | PROVIDERS: PCP Family Medicine; Visit Provider Nurse Practitioner Adult Health | DX: G25.0 Essential tremor (principal); G62.9 Polyneuropathy, unspecified | CPT/HCPCS: 99213; 99214 ==

== ENCOUNTER → 2021-08-19 09:20 | Outpatient (BNVA) | payer MEDICARE, SELFPAY | PROVIDERS: PCP Family Medicine; Referring Provider Family Medicine; Visit Provider Nurse Practitioner Adult Health | DX: G25.0 Essential tremor (principal); G62.9 Polyneuropathy, unspecified | CPT/HCPCS: 99212; 99214 ==

== ENCOUNTER → 2021-09-30 08:46 | Outpatient (BNVA) | payer MEDICARE, SELFPAY | PROVIDERS: PCP Family Medicine; Referring Provider Family Medicine; Visit Provider Nurse Practitioner Adult Health | DX: G25.0 Essential tremor (principal); G62.9 Polyneuropathy, unspecified; I95.1 Orthostatic hypotension; R41.89 Other symptoms and signs involving cognitive functions and awareness | CPT/HCPCS: 99213; 99214 ==

== ENCOUNTER → 2021-10-31 08:23 | Outpatient (BNVA) | payer MEDICARE, SELFPAY | PROVIDERS: PCP Family Medicine; Referring Provider Family Medicine; Visit Provider Physical Therapy Assistant | DX: Z12.11 Encounter for screening for malignant neoplasm of colon (principal); Z80.0 Family history of malignant neoplasm of digestive organs ==

== ENCOUNTER → 2021-11-11 08:46 | Outpatient (BNVA) | payer MEDICARE, SELFPAY | PROVIDERS: PCP Family Medicine; Referring Provider Family Medicine; Visit Provider Nurse Practitioner Adult Health | DX: G31.84 Mild cognitive impairment of uncertain or unknown etiology (principal); F32.9 Major depressive disorder, single episode, unspecified; G62.9 Polyneuropathy, unspecified; G20 Parkinson's disease; I95.1 Orthostatic hypotension; G25.0 Essential tremor | CPT/HCPCS: 99214; 99215 ==

== ENCOUNTER 2021-11-20 06:43 | Day surgery (SDC) | payer MEDICARE, SELFPAY ==
[2021-11-20 06:16] VITALS: BP 139/75; PULSE 73; RESP 18; TEMP 36.6; O2SAT 99
--- NOTE | 2021-11-20 06:16 | ANES.PREOP_ITS ---
General Info Date of Service Date Performed: 11/20/21 Height: 6 ft 1 in Weight: 86.183 kg Body Mass Index (BMI): 25.0 Surgical Procedure: Operation Date: 11/20/21 07:35 Proposed Procedure Side Surgeon sean Jalloh MD Meds Allergies and Home Medications Allergies Allergy/AdvReac Type Severity Reaction Status Date / Time Penicillins Allergy Intermediate hands and Verified 11/20/21 06:24 feet swell Home Medication Medication Instructions Recorded cyanocobalamin (vitamin B-12) 1,000 mcg PO DAILY 09/09/12 1,000 mcg tablet (Vitamin B-12) omeprazole 40 mg capsule,delayed 40 mg PO DAILY 09/09/12 release cholecalciferol (vitamin D3) 50 2,000 unit PO DAILY 09/13/14 mcg (2,000 unit) capsule (Vitamin D3) lisinopril 5 mg tablet 20 mg PO DAILY 01/31/19 lamotrigine 100 mg tablet 250 mg PO DAILY 03/27/20 (Lamictal) simvastatin 40 mg tablet 40 mg PO QHS 03/27/20 melatonin 3 mg capsule 3 mg PO HS PRN 07/24/20 citalopram 10 mg tablet (Celexa) 20 mg PO DAILY 12/19/20 gabapentin 300 mg capsule 300 mg PO QHS #90 caps 08/19/21 gabapentin 600 mg tablet 600 mg PO TID #180 tabs 08/19/21 hydroxyzine HCl 25 mg tablet See Rx Instructions PO QID PRN 09/30/21 tremor #30 tabs bisacodyl 5 mg tablet,delayed 5 mg PO ONCE #4 tabs 10/31/21 release (Dulcolax (bisacodyl)) polyethylene glycol 3350 17 17 g PO ONCE #238 grams 10/31/21 gram/dose oral powder pyridostigmine bromide 60 mg tablet 30 mg PO DIRECTED #90 tabs 10/31/21 Current Visit Medications: Current Medications Generic Name Dose Route Start Last Admin Trade Name Freq PRN Reason Stop Dose Admin Ringer's Solution 1,000 mls @ 80 mls/hr 11/20/21 06:00 IV 12/19/21 23:59 INF[facility]ION [facility] IV Miscellaneous Supplies 1 each 11/20/21 06:00 Iv Access IV 12/19/21 23:59 DIRECTED [facility] Sodium Chloride 0 ml 11/20/21 06:00 Normal Saline Flush 10 Ml Syr IV 12/19/21 23:59 PRN PRN Sodium Chloride 0 ml 11/20/21 06:00 Normal Saline 10 Ml Vial IJ 12/19/21 23:59 DIRECTED PRN Sterile Water 0 ml 11/20/21 06:00 Water,Injection,Sterile 10 Ml Vial IJ 12/19/21 23:59 DIRECTED PRN PFSH Active Problems Active Problems: Problem Status Onset Code Dyspnea R06.00 Adenoma of colon D12.6 Parkinsonism G20 Tardive dyskinesia G24.01 Memory loss R41.3 Screening for colon cancer Z12.11 Suicidal ideation R45.851 Medical History Medical History Ankle fracture, right BPH (benign prostatic hyperplasia) Cognitive impairment 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 denies this Peripheral neuropathy Thyroid nodule UTI (urinary tract infection) (09/13/14) Medical History Comments:: Per pt. : He was in a care-bed on thursday according to his [facility], and was recommended to go there per [facility] neuro r/t to his depression and suicidal ideation. Per his states he no longer has thoughts of harming himself, and is of sound mind to have this procedure done. Dr. Jalloh and Abeba made aware per [facility] messenger 11/18/21 @ 4232. Surgical History Surgical History ankle H/O surgical procedure a. appendectomy b. cholecystectomy c. resection of benign tumor right lung History of lung surgery Hx of cholecystectomy Tobacco Smoking/Tobacco Use Status: Former Tobacco Use Alcohol Alcohol Intake: never Substance Use Substance use: Never Substance use type: does not use Vital Signs and Lab Results Lab Results Blood Type / Crossmatch: 2 No Data to Display Complete Blood Count: No Data to Display Complete Metabolic Panel: No Data to Display Liver Function Panel: No Data to Display Coagulation Panel: No Data to Display Cardiac Panel: No Data to Display Arterial Blood Gas: No Data to Display Venous Blood Gas: No Data to Display Pancreas Panel: No Data to Display Thyroid Panel: No Data to Display Infectious Disease: No Data to Display Blood Cultures: No Data to Display Toxicology Panel: No Data to Display Imaging and Studies Imaging and Studies Study information below may be from another EMR and interpreted by another provider. Please see original notes in EMR for more complete details. Stress Test Summary: 01/2019: no EKG evidence of ischemia. normal stress test. Anesthesia Assessment and Plan Anesthesia History Personal History: No History of Anesthesia Complications Family History: No Family History of Anesthesia Complications Exercise Tolerance Exercise Tolerance: Metabolic Equivalents>4 Cardiac & Pulmonary Exam Cardiac Exam: Normal S1/S2 Heart Sounds Pulmonary Exam: Clear Bilateral Breath Sounds Implantable Cardiac Device Does patient have a Pacemaker or an ICD?: No Airway Exam Known Difficult Airway: No Mallampati Class: 2 Mouth Opening: Normal (> 3cm) Thyromental Distance: Greater than 3 cm Neck Range of Motion: Full ROM Neck Circumference: Normal Teeth Condition: Normal Dentition ASA Classification ASA Score: ASA 3 Emergency Case?: No NPO Status NPO Status: NPO Clears >2 hours, Solids >8 hours Anesthesia Plan Resuscitation Status: Full Code Anesthesia Technique: General Anesthesia Airway Planned: Natural Airway Monitors Used: Standard Monitors Preoperative Comments:: 81 yo male for screening colo, has family history of colon CA. Sig PMHx: tremor/parkinsonism, memory loss/cognitive impairment, former smoker, HTN (lisinopril), orthostatic. neuropathy, gerd (omeprozle)
--- NOTE | 2021-11-20 06:43 | W.COLOREPORT ---
Colonoscopy Report Date of procedure: 11/20/21 Pre-op diagnosis general: Colon Cancer Screening and Family history Post-op diagnosis procedure note: other (diverticulosis and polyps) Procedure: Colonoscopy Surgeon: Chasity Jalloh Anesthesia Type: General:No Airway Estimated blood loss (mL): 3 Pathology: other (ascending, descending and sigmoid polyps) Complications: None Disposition: same day Indications: The patient is here for Colonoscopy pre-op.?His last screening was in 2015, which was unremarkable. He has a family history of colon cancer in his sister whom was dx in her 70s.??He has not had any bowel habit changes. -Discussed colonoscopy bowel prep as well as the procedure. Discussed possible complications of the procedure to include bleeding, pain, perforation, missed small lesion/polyp, sore throat, aspiration and adverse reaction to the medications. Questions were answered to patient?s satisfaction. No guarantees were implied or given.? Prep: Miralax/Dulcolax Procedure Start Time: 07:26 Procedure End Time: 08:13 Retraction Time: 28 minutes Findings: ascending polyps x2, transverse polyps x2, sigmoid polyps x6 descending and sigmoid diverticulosis. Procedure Description: After informed consent was obtained the patient was taken to the procedure room and placed in a left decubitous position. Monitors were applied and a time out was done. The patients name, date of , procedure, allergies to medications and metal in their body was reviewed. The patient was then sedated. Once sedated and comfortable a rectal exam was done. External exam was normal. Internal exam revealed a normal sphincter tone and no palpable masses. The prostate felt smooth but enlarged. The scope was then introduced and retro-flexed. No internal hemorrhoids, polyps or masses were identified on retro-flexion. The scope was then advanced to the cecum without difficulty. The ileocecal vlave and appendiceal orifice were identified. The prep was good. The scope was then slowly retracted over 26 minutes back into the rectum. Polyps were removed with cold forceps in the ascending colon x2, transverse colon x2 and sigmoid colon x6. There was moderate descending and sigmoid diverticulosis noted. The scope was removed and the patient was woken up and taken back to Same day surgery in stable condition. The patient tolerated the procedure well and there were no immediate complications.
--- NOTE | 2021-11-20 06:44 | W.PM.DSUDISC ---
Discharge Plan Disposition Patient Disposition: HOME Condition: Good Discharge Details Reason For Visit: colonoscopy Attending Provider: Chasity Jalloh Primary Care Provider: Maria R Woods Home Meds and New Rx's Prescriptions: Continued lisinopril 5 mg tablet 20 mg PO DAILY simvastatin 40 mg tablet 40 mg PO QHS gabapentin 600 mg tablet 600 mg PO TID Qty: 180 3RF gabapentin 300 mg capsule 300 mg PO QHS Qty: 90 2RF Rx Instructions: Take in addition to 600 mg evening dose for a total of 900 mg hydroxyzine HCl 25 mg tablet See Rx Instructions PO QID PRN (Reason: tremor) Qty: 30 2RF Rx Instructions: Take 1-2 tablets every 6 hours as needed for tremor lamotrigine [Lamictal] 100 mg tablet 250 mg PO DAILY melatonin 3 mg capsule 3 mg PO HS PRN citalopram [Celexa] 10 mg tablet 20 mg PO DAILY pyridostigmine bromide 60 mg tablet 30 mg PO DIRECTED Qty: 90 3RF Rx Instructions: Take 30mg daily in the am. Ok to take an extra 30mg q6hr prn dizziness (max 120mg daily). cyanocobalamin (vitamin B-12) [Vitamin B-12] 1,000 MCG tablet 1,000 mcg PO DAILY omeprazole 40 MG capsule,delayed release(DR/EC) 40 mg PO DAILY cholecalciferol (vitamin D3) [Vitamin D3] 2,000 UNIT capsule 2,000 unit PO DAILY Discontinued bisacodyl [Dulcolax (bisacodyl)] 5 mg tablet,delayed release (DR/EC) 5 mg PO ONCE Qty: 4 0RF Rx Instructions: Take according to provider's instructions for colonoscopy prep. polyethylene glycol 3350 17 gram/dose powder 17 g PO ONCE Qty: 238 0RF Rx Instructions: To be taken as directed by prescriber's office for colonoscopy prep. Discharge Instructions Instructions: Diverticulosis (GEN) Additional Instructions: Findings: multiple small polyps, most likely benign diverticulosis Follow up: most likely as needed (this may change depending on final pathology results) Please call if you develop: fevers >101.5 Nausea or Vomiting Abdominal pain that is not transient Rectal bleeding that is more then a tbsp A hard abdomen and inability to pass gas DAY SURGERY UNIT POST ENDOSCOPY INSTRUCTIONS Instructions for everyone who is given Anesthesia: For your safety, please do the following for the next 24 Hours: a. Do not drive or operate dangerous equipment b. Do not drink alcohol beverages or use any recreational drugs for the first 24 hours or while taking pain medications. The medications in your body may have a reaction that can be dangerous. c. Do not make any important decisions or sign any important papers 1. Generally there are no restrictions on your activity after a day or so has gone by, but you may feel a bit fatigued for a few days. 2. After you arrive home you may have a light meal and return to a normal diet as you can tolerate it without feeling sick to your stomach. 3. After surgery, you may feel pain or discomfort. This should be only transient, but if it persists please contact your doctor. 4. If there are any questions regarding the findings of your procedure, please feel free to contact your doctor. 6. If you are unable to contact your doctor with a problem, contact the hospital at [phone]. 7. Continue all your regular medications unless directed otherwise. I understand the above instructions and have no questions. Signature of Patient or Responsible Adult Escort Date/Time Name of Responsible Adult Escort Signature of Nurse Date/Time Activity:: Activity as Tolerated Diet:: high fiber Discharge Orders Discharge Orders: Discharge Order (Routine); Ordered 11/20/21 Ordered By: Chasity Jalloh
[2021-11-20] MEDS: Lactated Ringers 1,000 ML 80 ML IV (06:55)
[2021-11-20 07:02] VITALS: BMI 25.0
--- NOTE | 2021-11-20 07:34 | BOWEL_PTH ---
PATIENT: Diego Cummings LOC: [facility] U#:[id number] AGE/SX: 81/M ROOM: RE11/20/[address]: Chasity Jalloh MD : [id number] BED: DIS: 11/20/2021 SPEC #: [id number] RECD: 11/20/21 13:01 STATUS: RADHA REMaria Guadalupe #: [id number] GUCCI: 11/20/21 07:[address]: Chasity Jalloh DEPT: Surgical Specimen RECD BY: Erma Valdivia ENTERED: 11/20/21 13:03 SP TYPE: Bowel OTHR DR: Maria R Woods Tissues: 1 - BIOPSY BOWEL 2 - BIOPSY BOWEL 3 - BIOPSY BOWEL Procedures: GROSS AND MICRO LEVEL 4 Comments: [id number]
[2021-11-20 08:21] VITALS: BP 109/62; PULSE 63; RESP 16; TEMP 36.7; O2SAT 97
--- NOTE | 2021-11-20 08:34 | W.ANESPOSTOP ---
Postoperative Evaluation Date, Time and Location Date Performed: 11/20/21 Time Performed: 08:34 Patient Location: Day Surgery Unit Vital Signs Most Recent Imported Vital Signs: Most Recent Vital Signs Temp Pulse Resp BP Pulse Ox 36.7 C 63 16 109/62 97 11/20/21 08:21 11/20/21 08:21 11/20/21 08:21 11/20/21 08:21 11/20/21 08:21 Pain Score Most Recent Pain Score: Most Recent Pain Score Pain Level 0 11/20/21 08:21 Assessment Mental Status: Awake (Alert & Oriented to Patient Baseline) Airway and Respiratory Function: Patent airway with normal (patient baseline) respiratory exam Cardiovascular Function: Hemodynamically Stable Hydration Status: Adequately Hydrated Nausea & Vomiting: No Nausea or Vomiting Pain: Pt. Denies Any Pain Peripheral Nerve Block: Patient did not receive a nerve block
[2021-11-20 08:52] VITALS: BP 127/78; PULSE 66; RESP 16; TEMP 36.2; O2SAT 98
== END 2021-11-20 09:45 | disposition home or self-care (01) ==
PROVIDERS: PCP Family Medicine; Visit Provider Surgery
PROC: 0DJD8ZZ Inspection of Lower Intestinal Tract, Via Natural or Artificial Opening Endoscopic (ICD-10-PCS; CPT 45378; principal; 2021-11-20 07:30)
DX: Z12.11 Encounter for screening for malignant neoplasm of colon (principal); K63.5 Polyp of colon; K57.30 Diverticulosis of large intestine without perforation or abscess without bleeding; Z80.0 Family history of malignant neoplasm of digestive organs
CPT/HCPCS: 45380; 88305

== ENCOUNTER 2022-01-14 02:01 | Outpatient (CLI) | payer MEDICARE, SELFPAY ==
[2022-01-14 10:08] LABS: Abs Immature Grans 0.01 10^3/uL (0.0-0.06); Absolute Basophil Count 0.03 10^3/uL (0.0-0.2); Absolute Eosinophil Count 0.13 10^3/uL (0.0-0.7); Absolute Lymphocyte Count 0.83 10^3/uL (1.2-3.4); Absolute Monocyte Count 0.29 10^3/uL (0.1-0.8); Absolute Neutrophil Count 2.66 10^3/uL (1.2-6.7); Basophils % 0.8; Eosinophils % 3.3; HCT 36.9 % (40.0-50.0); HGB 12.4 g/dL (13.5-17.5); Immature Grans % 0.3; MCH 33.2 pg (27.0-33.0); MCHC 33.6 % (32.0-36.0); MCV 99 fL (80-95); MPV 9.8 fL (8.0-11.0); Monocytes % 7.3; Neutrophils % 67.3; Platelet Count 232 10^3/uL (130-400); RBC 3.74 10^6/uL (4.36-5.78); RDW 12.7 % (11.8-14.1); RDW-SD 44.7 fL; WBC 3.95 10^3/uL (4.4-10.8)
[2022-01-14 10:26] LABS: ALT 15 U/L (16-63); AST 11 U/L (15-37); Alkaline Phosphatase 71 U/L (46-116); BUN 29 mg/dL (7-18); Bilirubin, Total 0.4 mg/dL (0.2-1.0); CREATININE 1.1 mg/dL (0.70-1.30); Calcium 9.9 mg/dL (8.5-10.1); Chloride 105 mmol/L (98-107); Estimated GFR 67.86 (mL/min/1.73m2); Glucose 104 mg/dL (74-106); Potassium 3.9 mmol/L (3.5-5.1); Sodium 142 mmol/L (136-145); Total Protein 9.1 g/dL (6.4-8.2)
[2022-01-15 11:42] LABS: IgA 47 mg/dL (85-499); IgG 633 mg/dL (610-1,616); IgM 3093 mg/dL (35-242); Kappa Free Light Chain 4.79 mg/dL (0.33-1.94); Lambda Free Light Chain 20.08 mg/dL (0.57-2.63)
[2022-01-15 13:48] LABS: Albumin g/dL 4.5 g/dL (3.6-5.2); Comment (See Note); Monoclonal Spike 20.1 % (None Seen); Monoclonal Spike g/dL 1.8 g/dL (None Seen); Total Protein 8.8 g/dL (6.3-8.2)
== END 2022-01-14 02:02 | disposition home or self-care (01) ==
LOC: LBO 02:01
PROVIDERS: PCP Family Medicine; Visit Provider Internal Medicine Hematology & Oncology
DX: D47.2 Monoclonal gammopathy (principal)
CPT/HCPCS: 36415; 80053; 82784; 83883; 84165; 85025

== ENCOUNTER → 2022-03-24 08:54 | Outpatient (BNVA) | payer MEDICARE, SELFPAY | PROVIDERS: PCP Family Medicine; Referring Provider Family Medicine; Visit Provider Nurse Practitioner Adult Health | DX: F41.3 Other mixed anxiety disorders (principal); F32.A Depression, unspecified; G25.0 Essential tremor; R26.81 Unsteadiness on feet; G24.01 Drug induced subacute dyskinesia | CPT/HCPCS: 99213; 99215 ==

== ENCOUNTER 2022-05-15 15:55 | Outpatient (REF) | payer MEDICARE, SELFPAY ==
[2022-05-15 22:13] LABS: PSA, Screening 2.9 ng/mL (<=6.5)
== END 2022-05-15 15:56 | disposition home or self-care (01) ==
LOC: NCHCN 15:55
PROVIDERS: PCP Family Medicine; Visit Provider Family Medicine
DX: N40.0 Benign prostatic hyperplasia without lower urinary tract symptoms (principal); Z12.5 Encounter for screening for malignant neoplasm of prostate
CPT/HCPCS: 84153

== ENCOUNTER → 2022-05-26 09:09 | Outpatient (BNVA) | payer MEDICARE, SELFPAY | PROVIDERS: PCP Family Medicine; Referring Provider Family Medicine; Visit Provider Nurse Practitioner Adult Health | DX: R41.3 Other amnesia (principal); F32.A Depression, unspecified; G25.0 Essential tremor; R26.89 Other abnormalities of gait and mobility | CPT/HCPCS: 99214 ==

== ENCOUNTER 2022-06-04 00:39 | Outpatient (CLI) | payer MEDICARE, SELFPAY ==
--- NOTE | 2022-06-04 | DI.US_ITS ---
Exam(s) US RENAL EXAM: US RENAL CLINICAL HISTORY: URINARY INCONTINENCE, R32, BPH, N40.0. TECHNIQUE: Salmeron scale, color and spectral Doppler were used. COMPARISON: US RENAL ULTRASOUND(P) {[id number]} from 09/28/2014 FINDINGS: Renal size in cm: Right: 10.2. Left: 11. Echogenicity: Normal. Hydronephrosis: No. Cyst or mass: There is a 3 mm round echogenic focus in the superior pole of the right renal cortex wh ich may represent a benign lesion such as an angiomyolipoma. There is a 2 x 1.3 x 1.3 cm simple cyst in the left kidney. No follow-up is recommended. Nephrolithiasis: No. Other findings: None. Bladder:Normal. Ureteral jets: Right: Not visualized on this examination. Left: Not visualized on this examination. Prevoid vol:376 cc Postvoid vol:200 cc Prostate: 121 cc. The prostate gland is lobulated and impinges upon the base of the bladder. There also appears to be a nodular component of the prostate gland projecting into the base of the bladder measuring 1.8 by 2.3 x 2.8 cm. Prostatic mass cannot be excluded. Renal color flow: Symmetric and within normal limits. IMPRESSION: 1. Enlarged prostate gland impinging upon the base of the urinary bladder. There is a 1.8 x 2.3 x 2. 8 cm nodular component of the prostate gland projecting into the bladder and a neoplasm cannot be exc luded. 2. Large postvoid urinary bladder volume. This may be secondary to bladder outlet obstruction. DATA REPOSITORY:
== END 2022-06-04 00:59 ==
LOC: DI 00:42
PROVIDERS: PCP Family Medicine; Visit Provider Family Medicine
DX: N40.1 Benign prostatic hyperplasia with lower urinary tract symptoms (principal); R33.8 Other retention of urine; N28.1 Cyst of kidney, acquired; N42.89 Other specified disorders of prostate
CPT/HCPCS: 76770

== ENCOUNTER 2022-07-25 14:46 | Outpatient (REF) | payer MEDICARE, SELFPAY ==
[2022-07-25 16:36] LABS: Bacteria Many HPF (Negative); C & S Indicated? C&S Done As Ordered; Casts Negative LPF (Negative); Crystals Negative HPF (Negative); Epithelial Cells Rare HPF (Negative); Mucus Negative (Negative); Other Cells Negative (Negative); RBC 0-2 HPF (0-2)
== END 2022-07-25 14:47 | disposition home or self-care (01) ==
LOC: LBN 14:46
PROVIDERS: PCP Family Medicine; Visit Provider Physician Assistant Medical
DX: R39.89 Other symptoms and signs involving the genitourinary system (principal); R82.998 Other abnormal findings in urine
CPT/HCPCS: 81015; 87086

== ENCOUNTER 2022-08-30 09:28 | Emergency (ER) | payer MEDICARE, SELFPAY ==
[2022-08-30] VITALS (22 sets, daily range): BP systolic 124–180; BP diastolic 64–92; PULSE 62–75; RESP 11–24; TEMP 36.2–37.2; O2SAT 100
--- NOTE | 2022-08-30 09:15 | RT.EKG_ITS ---
APPROVED REPORT Exam: Resting ECG Reason for Exam: stroke Patient Location: E HR:69 bpm ECG Measurements Heart Rate 69 AXIS WA 156 P 68 QRSd 82 QRS 54 QT 397 T 58 QTc 425 Conclusion Sinus rhythm...normal P axis, V-rate 60- 99. Sinus. Normal axis. No STEMI. I have reviewed and interpreted ECG and agree with software generated interpretation.
--- NOTE | 2022-08-30 09:30 | DI.CT_ITS ---
Exam(s) CT HEAD - STROKE PROTOCOL EXAM: CT HEAD - STROKE PROTOCOL CLINICAL HISTORY: L facial droop, L arm/leg weakness, r/o cva. TECHNIQUE: Imaging Protocol: Axial computed tomography images with coronal and sagittal reformatted images were created and reviewed COMPARISON: CT CT HEAD WO from 01/14/2019 FINDINGS: Ventricles and Extra axial spaces: Normal in size and morphology for the patient's age. Hemorrhage: None. Cerebral parenchyma: There is no evidence of an acute territorial infarct. There are areas of decrea sed attenuation in the white matter most consistent with small vessel ischemic disease. 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 Midline shift: None. Brainstem/Cerebellum: Normal. Calvarium: Normal. Visualized Paranasal sinuses/Mastoids: Mucous retention cysts or polyps are seen in the maxillary sin uses. The visualized paranasal sinuses and mastoid air cells are otherwise clear. Soft Tissues: Unremarkable. IMPRESSION: No acute intracranial process. RADIATION DOSE DELIVERED: 944.37mGy.cm Total DLP DATA REPOSITORY: All CT scans at this facility are submitted to the National Radiology Data Registry (NRDR) Dose Index Registry (DIR) with the [employer] ([employer]). RADIATION OPTIMIZATION: All CT scans at this facility use at least one of these dose optimization te chniques: automated exposure control; mA and/or kV adjustment per patient size (includes targeted exa ms where dose is matched to clinical indication); or iterative reconstruction.
--- NOTE | 2022-08-30 09:31 | W.ED.GENAD ---
Discharge Plan Disposition Patient Disposition: Home Condition: Stable Discharge Details Clinical Impression: UTI (urinary tract infection), Enlarged prostate, Generalized weakness, Chills Primary Care Provider: Maria R Woods ED Provider: Temitope Mayberry Home Meds and New Rx's Prescriptions: New levofloxacin 750 mg tablet 750 mg PO DAILY 4 Days Qty: 4 0RF levofloxacin 750 mg tablet 750 mg PO DAILY 4 Days Qty: 4 0RF Continued lisinopril 5 mg tablet 20 mg PO DAILY simvastatin 40 mg tablet 40 mg PO QHS hydroxyzine HCl 25 mg tablet See Rx Instructions PO QID PRN (Reason: tremor) Qty: 30 2RF Rx Instructions: Take 1-2 tablets every 6 hours as needed for tremor lamotrigine [Lamictal] 100 mg tablet 250 mg PO DAILY melatonin 3 mg capsule 3 mg PO HS PRN citalopram [Celexa] 10 mg tablet 20 mg PO DAILY pyridostigmine bromide 60 mg tablet 30 mg PO DIRECTED Qty: 90 3RF Rx Instructions: Take 30mg daily in the am. Ok to take an extra 30mg q6hr prn dizziness (max 120mg daily). gabapentin 600 mg tablet See Rx Instructions .ROUTE .COMPLEX Qty: 270 3RF Dose Instruction: TAKE 1 TABLET BY MOUTH 3 TIMES DAILY Rx Instructions: TAKE 1 TABLET BY MOUTH 3 TIMES DAILY gabapentin 300 mg capsule 300 mg PO QHS Qty: 90 3RF Rx Instructions: Take in addition to 600 mg evening dose for a total of 900 mg finasteride 5 mg tablet 5 mg PO DAILY tamsulosin 0.4 mg capsule 0.4 mg PO QHS cyanocobalamin (vitamin B-12) [Vitamin B-12] 1,000 MCG tablet 1,000 mcg PO DAILY omeprazole 40 MG capsule,delayed release(DR/EC) 40 mg PO DAILY cholecalciferol (vitamin D3) [Vitamin D3] 2,000 UNIT capsule 2,000 unit PO DAILY Discharge Instructions Instructions: Urinary Tract Infection in Men (ED), Weakness (ED) Additional Instructions: You appear to have a urinary tract infection. The CT scan of your head and chest showed no acute concerning findings. The CT scan of your abdomen and pelvis showed that your prostate is enlarged and likely the cause of your urinary tract infection. It has been recommended that you obtain an MRI of your prostate for further evaluation. Drink plenty of fluids and get plenty of rest. A prescription for the antibiotic Levaquin has been sent electronically to [facility] in [place]. Please pickle cutter this prescription and start it tomorrow and take as directed until finished. You have been placed on care management's list to arrange for follow-up appoint with your primary care doctor for reevaluation and for referral for outpatient MRI of your prostate area. You have been also placed on care management's list to arrange for a follow-up appointment with urology for further evaluation of your urinary tract infection in the setting of an enlarged prostate. Return immediately to the emergency department if you develop any worsening or new concerning symptoms. Referrals: Vincent Chase MD [ [facility] STAFF PHYSICIAN] - Discharge Data Discharge Physician: Temitope Mayberry Medical Decision Making 0930 -- 82yo M w/ a h/o hypertension, hyperlipidemia, cognitive impairment, Parkinson's disease, chronic left leg weakness, BPH, dizzy spells, technical document writer's palsy presented as a stroke alert per EMS. Patient had reported generalized weakness since last night and left face tingling this morning. There initially was reported a timeframe of 2 hours ago as onset of facial tingling but patient now reports he is unsure. It was also reported that he had a right arm drift and left leg weakness however patient has no right arm drift on exam and his left leg weakness is chronic for several years. He reported feeling cold and sweaty this morning. He has not had any of his his regular medications for 3 days. He was also reported that patient had urinary frequency overnight and funny feeling in his abdomen this morning. Patient assessed in the hallway on arrival per EMS. He is awake and alert and able to follow commands but has memory issues and somewhat of a poor historian. He has normal handgrip bilaterally without arm drift noted. He has chronic left leg weakness and this appears at baseline per his . He had initially noted to have a left facial droop but does have grimacing of his face with his Parkinson's and does appear to have equal facial movement upon testing but at different times. Blood pressure moderately hypertensive. He does not take blood pressure medications. Rectal temp 97 2. Abdomen is soft but tender in the right upper quadrant. With his multitude of symptoms, I am not convinced that his presentation is consistent with a stroke. He is also not a tPA candidate due to the unknown timeframe of onset of symptoms. Differential diagnosis includes UTI, dehydration, electrolyte abnormality, cholelithiasis, cholecystitis, appendicitis, TIA, CVA, medication noncompliance. Will obtain screening labs, CT chest abdomen pelvis, urinalysis, FLUVID and give fluid bolus. 0945 -- CT head negative for acute findings. 1030 --patient endorsing that his entire face, tongue and both arms are tingly. When inquired further about this, patient states his entire face and not just his left face has been tingly since last night. His vitals are within normal limits. He has no new focal deficits. At this point in time this does not appear consistent with a stroke but will continue to monitor. 1320 --CT chest abdomen and pelvis reviewed. CT chest negative for acute findings. CT abdomen pelvis notes thickened irregular bladder wall of concern for cystitis or neoplastic process versus bladder outlet obstruction. He also has an enlarged lobulated prostate possibly resulting in bladder outlet obstruction. Consider MRI of the prostate to rule out prostate carcinoma. He is renal function is within normal limits and he has been able to urinate. He has an allergy to penicillin which causes hand and foot swelling. We will treat with Levaquin. There are interactions with citalopram which can cause QT prolongation. His EKG noted a normal QTc interval. Patient reassessed and he feels much better and would like to go home. Patient placed on care management list to arrange for a follow-up appointment with his primary care doctor for reevaluation and for referral for outpatient MRI for further evaluation of the prostate area. Also placed on care management list to arrange for follow-up appoint with Dr. Chase for reevaluation of UTI in the setting of enlarged prostate. Usual and customary return precautions given prior to discharge. Medical Records Medical records reviewed: Yes I reviewed the patient's medical records. Imaging Data Radiologic Study: Radiologist's impression: CT Head Without Contrast Exam date and time: 08/30/2022 9:37 AM Age: 82 years old Clinical indication: Other: L facial droop, L arm/leg weakness, R/O CVA TECHNIQUE: Imaging protocol: Computed tomography of the head without contrast. Radiation optimization: All CT scans at this facility use at least one of these dose optimization techniques: automated exposure control; mA and/or kV adjustment per patient size (includes targeted exams where dose is matched to clinical indication); or iterative reconstruction. COMPARISON: MR BRAIN WO 01/27/2019 10:47 AM FINDINGS: Brain:? Mild volume loss No hemorrhage.? Mild white matter disease. No mass effect. Cerebral ventricles: No ventriculomegaly. Paranasal sinuses:? Mild polypoid tissue in the maxillary sinuses. No fluid levels. Mastoid air cells: Visualized mastoid air cells are well aerated. Bones/joints: Unremarkable. No acute fracture. Soft tissues: Unremarkable. IMPRESSION: No acute intracranial abnormality. CT Chest With Contrast; Diagnostic Exam date and time: 08/30/2022 11:54 AM Age: 82 years old Clinical indication: Other: Ruq abd pain; Urinary frequency; Feeling unwell; Other: R/O pneumonia TECHNIQUE: Imaging protocol: Diagnostic computed tomography of the chest with contrast. 3D rendering (Not supervised by radiologist): MIP and/or 3D reconstructed images were created by the technologist. Radiation optimization: All CT scans at this facility use at least one of these dose optimization techniques: automated exposure control; mA and/or kV adjustment per patient size (includes targeted exams where dose is matched to clinical indication); or iterative reconstruction. Contrast material: OMNIPAQUE 350; Contrast volume: 100 ml; Contrast route: INTRAVENOUS (IV);? COMPARISON: CR XR CHEST 2V PA LATERAL 07/21/2018 18:28 FINDINGS: Lungs: Unremarkable. No consolidation. No masses. Pleural spaces: Unremarkable. No pneumothorax. No pleural effusion. Heart: Unremarkable. No cardiomegaly. No pericardial effusion. Coronary arteries: Calcified coronary arteries. Lymph nodes: Unremarkable. No enlarged lymph nodes. Vasculature: Atherosclerotic disease. Bones/joints: Multilevel degenerative changes of the spine. Degenerative changes of the right shoulder. Age indeterminate bilateral rib fractures. Soft tissues: Unremarkable. IMPRESSION: 1. ? No acute findings. 2. ? Additional findings as discussed above. CT Abdomen And Pelvis With Contrast Exam date and time: 08/30/2022 11:54 AM Age: 82 years old Clinical indication: Other: Ruq abd pain; Urinary frequency; Feeling unwell; Other: R/O pneumonia TECHNIQUE: Imaging protocol: Computed tomography of the abdomen and pelvis with contrast. 3D rendering (Not supervised by radiologist): MIP and/or 3D reconstructed images were created by the technologist. Radiation optimization: All CT scans at this facility use at least one of these dose optimization techniques: automated exposure control; mA and/or kV adjustment per patient size (includes targeted exams where dose is matched to clinical indication); or iterative reconstruction. Contrast material: OMNIPAQUE 350; Contrast volume: 100 ml; Contrast route: INTRAVENOUS (IV);? COMPARISON: US RENAL 04/06/2022 11:00 FINDINGS: Liver: Normal. No mass. Gallbladder and bile ducts: Cholecystectomy. Pancreas: Normal. No ductal dilation. Spleen: Splenic calcification. Adrenal glands: Normal. No mass. Kidneys and ureters: Simple left renal cyst. Subcentimeter right renal cyst. Stomach and bowel: Unremarkable. No obstruction. No mucosal thickening. Appendix: No evidence of appendicitis. Intraperitoneal space: Unremarkable. No free air. No significant fluid collection. Vasculature: Atherosclerotic disease. Lymph nodes: Enlarged inguinal lymph nodes. Urinary bladder: Thickened irregular bladder wall, possibly from bladder outlet obstruction due to the enlarged prostate. Reproductive: Enlarged lobulated prostate. Bones/joints: Multilevel degenerative changes of the spine. Soft tissues: Fat distension of the left inguinal canal. Calcification in the soft tissues of the right buttocks. Dependent edema in the soft tissues of the back. IMPRESSION: 1. ? Thickened irregular bladder wall of concern for cystitis or it neoplastic process versus bladder outlet obstruction. 2. ? Enlarged lobulated prostate possibly resulting in bladder outlet obstruction. Consider MRI of the prostate to rule out prostate carcinoma. 3. ? Additional findings as discussed above. Lab Data Lab results reviewed: Yes I reviewed the patient's lab results. ECG Data Attestation: I personally reviewed and interpreted this ECG (s) as follows: Interpretation: Rate of 69, sinus, normal axis, normal intervals, no acute ischemic findings. HPI General Mode of arrival: EMS. Date/Time Provider Initiated Documentation: 08/30/22 09:37. Limitations to Documentation: altered mental status. Information obtained by: patient and family. 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 Per EMS, patient had reported a tingling feeling in the left side of his face initially reported as starting 2 hours ago but then patient reported he is unsure of time of onset. He also reported generalized weakness since last night. EMS reported that they noted a right arm drift and left leg weakness, of unknown timeframe. at bedside reports patient has chronic left leg weakness and reports this is no worse than usual. Patient stated to his this morning I don't feel well. She reports that patient did not look well this morning. Patient had reported to her that he felt cold, sweaty and with chills. She reports that he has not had any of his medications for the past 3 days. She states that he receives all of his medications through his [employer] nurse Lauren Roberts. states that had been unable to get a hold of them to get his medications. states that patient does not drink any water ever. She states she only drinks coffee and jess elizabeth. She states he normally does not eat breakfast. They deny any known fever, headache, blurry vision, chest pain, difficulty breathing. Patient denies any abdominal pain but EMS reported that his right lower quadrant appeared tender. Patient does report that his abdomen feels funny . When inquired further about this, states he may be hungry. Patient has a history of a cognitive impairment with memory issues. Patient states yeah maybe I am hungry . Patient does endorse that he urinated 4 times overnight which is unusual for him as he states he normally has difficulty urinating. They deny any known vomiting or diarrhea. She denies any recent falls. endorses that he has a history of Parkinson's disease and has chronic tremors and states this is no worse than usual. Related Data Home Medications Medication Instructions Recorded Confirmed cyanocobalamin (vitamin B-12) 1,000 mcg PO DAILY 09/09/12 05/26/22 1,000 mcg tablet (Vitamin B-12) omeprazole 40 mg capsule,delayed 40 mg PO DAILY 09/09/12 05/26/22 release cholecalciferol (vitamin D3) 50 2,000 unit PO DAILY 09/13/14 05/26/22 mcg (2,000 unit) capsule (Vitamin D3) lisinopril 5 mg tablet 20 mg PO DAILY 01/31/19 05/26/22 lamotrigine 100 mg tablet 250 mg PO DAILY 03/27/20 05/26/22 (Lamictal) simvastatin 40 mg tablet 40 mg PO QHS 03/27/20 05/26/22 melatonin 3 mg capsule 3 mg PO HS PRN 07/24/20 05/26/22 citalopram 10 mg tablet (Celexa) 20 mg PO DAILY 12/19/20 05/26/22 pyridostigmine bromide 60 mg tablet 30 mg PO DIRECTED #90 tabs 10/31/21 05/26/22 gabapentin 600 mg tablet See Rx Instructions .Route 01/20/22 05/26/22 .COMPLEX #270 tabs gabapentin 300 mg capsule 300 mg PO QHS #90 caps 04/15/22 05/26/22 hydroxyzine HCl 25 mg tablet See Rx Instructions PO QID PRN 05/26/22 05/26/22 tremor #30 tabs finasteride 5 mg tablet 5 mg PO DAILY 06/10/22 tamsulosin 0.4 mg capsule 0.4 mg PO QHS 06/10/22 levofloxacin 750 mg tablet 750 mg PO DAILY 4 days #4 tabs 08/30/22 levofloxacin 750 mg tablet 750 mg PO DAILY 4 days #4 tabs 08/30/22 Previous Rx's Medication Instructions Recorded pyridostigmine bromide 60 mg tablet 30 mg PO DIRECTED #90 tabs 10/31/21 gabapentin 600 mg tablet See Rx Instructions .Route 01/20/22 .COMPLEX #270 tabs gabapentin 300 mg capsule 300 mg PO QHS #90 caps 04/15/22 hydroxyzine HCl 25 mg tablet See Rx Instructions PO QID PRN 05/26/22 tremor #30 tabs levofloxacin 750 mg tablet 750 mg PO DAILY 4 days #4 tabs 08/30/22 levofloxacin 750 mg tablet 750 mg PO DAILY 4 days #4 tabs 08/30/22 Allergies Allergy/AdvReac Type Severity Reaction Status Date / Time Penicillins Allergy Intermediate hands and Verified 05/26/22 09:15 feet swell General Stated Complaint: CVA/TIA NEHA: 3 Review of Systems All systems reviewed & are unremarkable except as noted in HPI and below Constitutional Constitutional: Reports as per HPI, Denies chills, Denies fever(s) and Reports weakness Eyes Eyes: Denies blurry vision ENT Ears, Nose, Mouth, and Throat: Denies dizziness, Denies sore throat and Denies throat swelling Cardiovascular Cardiovascular: Denies chest pain and Denies dyspnea Respiratory Respiratory: Denies cough and Denies dyspnea Gastrointestinal Gastrointestinal: Denies abdominal pain (funny feeling in abdomen), Denies diarrhea and Denies vomiting Genitourinary Genitourinary: Denies hematuria, Denies dysuria and Reports urinary frequency Musculoskeletal Musculoskeletal: Denies back pain and Denies numbness Integumentary/Breasts Skin/Breast: Denies lesions and Denies rash Neurologic Neurologic: Denies dizziness, Denies localized weakness, Denies numbness and Reports weakness Allergic/Immunologic Allergic/Immunologic: Denies throat swelling PFSH All Active Problems (Updated 08/30/22 @ 13:47 by Temitope Mayberry DO) UTI (urinary tract infection) (Acute) Enlarged prostate (Acute) Generalized weakness (Acute) Chills (Acute) Solitary thyroid nodule (Acute) Tremor (Acute) Dementia (Chronic) Monoclonal gammopathy (Acute) Hypertension (Chronic) Urinary incontinence (Acute) Serrated adenoma of colon (Acute) Hyperplastic colon polyp (Acute) Tubular adenoma of colon (Acute) Dyspnea (Acute) Adenoma of colon (Acute) Parkinsonism (Chronic) Tardive dyskinesia (Chronic) Memory loss (Chronic) Screening for colon cancer (Acute) Suicidal ideation (Acute) Medical History Ankle fracture, right BPH (benign prostatic hyperplasia) Cognitive impairment 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 denies this Peripheral neuropathy Thyroid nodule UTI (urinary tract infection) (09/13/14) Surgical History ankle H/O surgical procedure a. appendectomy b. cholecystectomy c. resection of benign tumor right lung History of colonoscopy (~11/2021) History of lung surgery Hx of cholecystectomy Family History Other Stroke Social History Smoking/Tobacco Use Status: Former Tobacco Use Quit Date: 04/13/79 Smoking risk assessment performed?: Yes Alcohol Intake: never Drug use: Never Substance use type: does not use Household members: spouse What is your relationship status?: Panel score (0-1 are the most socially isolated patients): 1 Additional Social history: Unable to assess privatley Per pt. states he was in recently in a care bed 11/15/21, states he has been struggling because he just lost a brother, and per pt. they needed a break from eachother. Per pt. states he no longer has thoughts of harming himself or others. Exam Const General: cooperative and no acute distress Orientation: alert, awake and oriented x3 HENMT Head: normal to inspection Ears: hearing grossly normal bilaterally, external ears normal and TM's normal bilaterally Face and sinus: normal facial exam Mouth: moist mucous membranes Eyes General: appearance normal, both eyes and all related structures Pupils: PERRL EOM: EOM intact bilaterally Neck Neck: normal visual inspection and No submandibular swelling Lymphatic: no lymphadenopathy noted Chest Chest: normal inspection of the chest and no tenderness Resp Effort & Inspection: normal respiratory effort and able to speak in complete sentences Auscultation: clear to auscultation bilaterally Cardio Rate: regular rate Rhythm: regular rhythm GI Inspection: normal to inspection Palpation: soft, not firm, not rigid and tender in the RUQ Auscultation: hypoactive bowel sounds Male General Exam: Yes normal external exam Back/Spine/Pelvis Thoracic/Lumbar Spine: thoracic and lumbar spine normal to inspection Skin General skin exam: no rashes or lesions noted Neuro General: patient alert, patient awake, patient oriented x3, moves all extremities, no meningeal signs and no focal motor deficits Cognition: normal cognition Speech: speech normal Sensory Exam: no sensory deficits noted Other: Chronic left leg weakness. Normal plantar and dorsi flexion but difficulty holding left leg up for more than 10 seconds which is chronic. Normal handgrip bilaterally. Patient initially was noted to have a left facial droop but does have grimacing with his face when testing cranial nerves and does appear to lift both corners of the mouth equally but at different times. Extrem General: normal to inspection, full ROM, capillary refill normal, no calf tenderness bilaterally and no edema Psych Appearance: grossly normal Mental Status: mental status grossly normal Speech and Movement: speech and movement normal Affect: normal affect
--- NOTE | 2022-08-30 09:47 | DI.VRAD_ITS ---
PROCEDURE INFORMATION: Exam: CT Head Without Contrast Exam date and time: 08/30/2022 9:37 AM Age: 82 years old Clinical indication: Other: L facial droop, L arm/leg weakness, R/O CVA TECHNIQUE: Imaging protocol: Computed tomography of the head without contrast. Radiation optimization: All CT scans at this facility use at least one of these dose optimization techniques: automated exposure control; mA and/or kV adjustment per patient size (includes targeted exams where dose is matched to clinical indication); or iterative reconstruction. COMPARISON: MR BRAIN WO 01/27/2019 10:47 AM FINDINGS: Brain: Mild volume loss No hemorrhage. Mild white matter disease. No mass effect. Cerebral ventricles: No ventriculomegaly. Paranasal sinuses: Mild polypoid tissue in the maxillary sinuses. No fluid levels. Mastoid air cells: Visualized mastoid air cells are well aerated. Bones/joints: Unremarkable. No acute fracture. Soft tissues: Unremarkable. IMPRESSION: No acute intracranial abnormality. Dictated and Authenticated by: Tariq Morris MD. Ordering:GILL Linn MD
[2022-08-30] MEDS: Normal Saline 250 ML 500 ML IV (10:00)
--- NOTE | 2022-08-30 10:00 | DI.CT_ITS ---
Exam(s) CT CHEST/ABD/PEL W EXAM: CT CHEST/ABD/PEL W CLINICAL HISTORY: not feeling well, RUQ abd pain, urinary frequency TECHNIQUE: Imaging Protocol: Axial computed tomography images with coronal and sagittal reformatted images were created and reviewed CONTRAST MATERIAL: Intravenous: Omnipaque 350 contrast volume:100 mL Oral: No COMPARISON: CT RENAL COLIC WO CONTRAST from 09/09/2012 FINDINGS: CHEST: Tracheobronchial tree: Patent where visualized. Pulmonary parenchyma: No consolidation or dominant measurable mass. No architectural distortion. Ther e is a calcified granuloma in the left upper lobe. Visualized thyroid gland: Unremarkable. Mediastinum and [place]: No dominant adenopathy or fluid collection. The esophagus is unremarkable. Pleura: No effusion or pneumothorax. Heart: The heart is not dilated. Marked coronary artery calcification is present. No pericardial eff usion. Pulmonary arteries: Due to the timing of the bolus, pulmonary arteries are inadequately opacified for evaluation of pulmonary emboli. No large central pulmonary embolus is present. Aorta: Thoracic aorta non-dilated. There is atherosclerosis present. Lymph nodes: Within normal limits. Soft tissues: Unremarkable. Bones:Within normal limits for the patient's age. 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 ABDOMEN: Liver: Normal density. No measurable mass. Portal, Superior Mesenteric, and Splenic Veins: Unremarkable. Gallbladder and Biliary Tract: Status post cholecystectomy. No significant biliary ductal dilatation . Pancreas: Normal density, no abnormal calcifications or inflammatory process. Spleen: Normal. There are splenic calcified granuloma. Adrenals: No masses seen. Kidneys: Normal size, contour and axis. No radiodense stones or obstructive uropathy. There is a simp le 2 cm cyst in the left kidney. No follow-up is recommended. Abdominal Aorta: Abdominal portion non-dilated. Atherosclerosis is present. Bowel: There is diverticulosis in the colon, but no evidence of acute diverticulitis. There is no ev idence of bowel obstruction or bowel wall thickening. There is no evidence of appendicitis. Peritoneal Cavity: No ascites, collection or mesenteric inflammatory response. No free air. Lymph Nodes: Within normal limits. Bones: Within normal limits for the patient's age. Soft Tissues: Unremarkable. There are surgical clips seen in the right abdominal wall. PELVIS: Bladder: There is diffuse thickening of the wall of the urinary bladder. Reproductive Organs: Prostate gland is enlarged. Lymph Nodes: Within normal limits. Bones: Within normal limits. IMPRESSION: 1. No acute pulmonary process. 2. Enlarged dilated prostate gland. 3. Thickened urinary bladder wall. This may be due to chronic bladder outlet obstruction. Cystitis or neoplastic process cannot be excluded. Please correlate clinically. RADIATION DOSE DELIVERED: 1,109.09mGy.cm Total DLP DATA REPOSITORY: All CT scans at this facility are submitted to the National Radiology Data Registry (NRDR) Dose Index Registry (DIR) with the [employer] ([employer]). RADIATION OPTIMIZATION: All CT scans at this facility use at least one of these dose optimization te chniques: automated exposure control; mA and/or kV adjustment per patient size (includes targeted exa ms where dose is matched to clinical indication); or iterative reconstruction.
[2022-08-30 10:14] LABS: Lactate 0.6 mmol/L (0.6-1.4)
[2022-08-30 10:22] LABS: Abs Immature Grans 0.01 10^3/uL (0.0-0.06); Absolute Basophil Count 0.02 10^3/uL (0.0-0.2); Absolute Eosinophil Count 0.06 10^3/uL (0.0-0.7); Absolute Lymphocyte Count 0.63 10^3/uL (1.2-3.4); Absolute Monocyte Count 0.25 10^3/uL (0.1-0.8); Absolute Neutrophil Count 2.94 10^3/uL (1.2-6.7); Basophils % 0.5; Eosinophils % 1.5; HCT 38.6 % (40.0-50.0); HGB 13.3 g/dL (13.5-17.5); Immature Grans % 0.3; Lymphocytes % 16.1; MCH 33.2 pg (27.0-33.0); MCHC 34.5 % (32.0-36.0); MCV 96 fL (80-95); MPV 9.7 fL (8.0-11.0); Monocytes % 6.4; Neutrophils % 75.2; Platelet Count 259 10^3/uL (130-400); RBC 4.01 10^6/uL (4.36-5.78); RDW 12.8 % (11.8-14.1); RDW-SD 44.1 fL; WBC 3.91 10^3/uL (4.4-10.8)
[2022-08-30 10:47] LABS: ALT 17 U/L (16-63); AST 15 U/L (15-37); Alkaline Phosphatase 86 U/L (46-116); Anion Gap 7.5 mmol/L (3-11); BUN 13 mg/dL (7-18); Bilirubin, Total 0.6 mg/dL (0.2-1.0); CO2 31.5 mmol/L (21.0-32.0); Calcium 10.4 mg/dL (8.5-10.1); Chloride 102 mmol/L (98-107); Estimated GFR 75.61 (mL/min/1.73m2); Glucose 106 mg/dL (74-106); Lipase 18 U/L (16-77); Magnesium 2.2 mg/dL (1.8-2.4); Potassium 4.1 mmol/L (3.5-5.1); Sodium 141 mmol/L (136-145); Total Protein 9.6 g/dL (6.4-8.2); Troponin I < 50 ng/L (<or=60)
[2022-08-30 10:55] LABS: COVID-19 PCR Negative (Negative); Influenza A PCR Negative (Negative); Influenza B PCR Negative (Negative); RSV PCR Negative (Negative)
[2022-08-30 10:58] LABS: Bilirubin Negative (Negative); Blood Trace-intact (Negative); Clarity Sl Cloudy (Clear); Glucose Negative (Negative); Ketones Negative (Negative); Leukocyte Esterase Trace (Negative); Nitrite Negative (Negative); Urobilinogen 0.2 mg/dL (Up to 0.2); pH 7.5 (5-8)
[2022-08-30 10:59] LABS: Source Nasopharynx
[2022-08-30 11:04] LABS: Bacteria Many HPF (Negative); Casts 0-2 Fine Granular LPF (Negative); Crystals Negative HPF (Negative); Epithelial Cells Rare HPF (Negative); Mucus Trace (Negative)
[2022-08-30 11:05] LABS: C & S Indicated? Yes
[2022-08-30] MEDS: Normal Saline - Diluent 50 ML VIAL IJ (12:02)
[2022-08-30] MEDS: Omnipaque 350 MG/ML 100 ML BTL IJ (12:02)
[2022-08-30] MEDS: Normal Saline Flush 10 ML SYR IVP (12:02)
[2022-08-30] MEDS: Normal Saline 500 ML IV (12:21)
--- NOTE | 2022-08-30 12:53 | DI.VRAD_ITS ---
PROCEDURE INFORMATION: Exam: CT Chest With Contrast; Diagnostic Exam date and time: 08/30/2022 11:54 AM Age: 82 years old Clinical indication: Other: Ruq abd pain; Urinary frequency; Feeling unwell; Other: R/O pneumonia TECHNIQUE: Imaging protocol: Diagnostic computed tomography of the chest with contrast. 3D rendering (Not supervised by radiologist): MIP and/or 3D reconstructed images were created by the technologist. Radiation optimization: All CT scans at this facility use at least one of these dose optimization techniques: automated exposure control; mA and/or kV adjustment per patient size (includes targeted exams where dose is matched to clinical indication); or iterative reconstruction. Contrast material: OMNIPAQUE 350; Contrast volume: 100 ml; Contrast route: INTRAVENOUS (IV); COMPARISON: CR XR CHEST 2V PA LATERAL 07/21/2018 18:28 FINDINGS: Lungs: Unremarkable. No consolidation. No masses. Pleural spaces: Unremarkable. No pneumothorax. No pleural effusion. Heart: Unremarkable. No cardiomegaly. No pericardial effusion. Coronary arteries: Calcified coronary arteries. Lymph nodes: Unremarkable. No enlarged lymph nodes. Vasculature: Atherosclerotic disease. Bones/joints: Multilevel degenerative changes of the spine. Degenerative changes of the right shoulder. Age indeterminate bilateral rib fractures. Soft tissues: Unremarkable. IMPRESSION: 1. No acute findings. 2. Additional findings as discussed above. PROCEDURE INFORMATION: Exam: CT Abdomen And Pelvis With Contrast Exam date and time: 08/30/2022 11:54 AM Age: 82 years old Clinical indication: Other: Ruq abd pain; Urinary frequency; Feeling unwell; Other: R/O pneumonia TECHNIQUE: Imaging protocol: Computed tomography of the abdomen and pelvis with contrast. 3D rendering (Not supervised by radiologist): MIP and/or 3D reconstructed images were created by the technologist. Radiation optimization: All CT scans at this facility use at least one of these dose optimization techniques: automated exposure control; mA and/or kV adjustment per patient size (includes targeted exams where dose is matched to clinical indication); or iterative reconstruction. Contrast material: OMNIPAQUE 350; Contrast volume: 100 ml; Contrast route: INTRAVENOUS (IV); COMPARISON: US RENAL 04/06/2022 11:00 FINDINGS: Liver: Normal. No mass. Gallbladder and bile ducts: Cholecystectomy. Pancreas: Normal. No ductal dilation. Spleen: Splenic calcification. Adrenal glands: Normal. No mass. Kidneys and ureters: Simple left renal cyst. Subcentimeter right renal cyst. Stomach and bowel: Unremarkable. No obstruction. No mucosal thickening. Appendix: No evidence of appendicitis. Intraperitoneal space: Unremarkable. No free air. No significant fluid collection. Vasculature: Atherosclerotic disease. Lymph nodes: Enlarged inguinal lymph nodes. Urinary bladder: Thickened irregular bladder wall, possibly from bladder outlet obstruction due to the enlarged prostate. Reproductive: Enlarged lobulated prostate. Bones/joints: Multilevel degenerative changes of the spine. Soft tissues: Fat distension of the left inguinal canal. Calcification in the soft tissues of the right buttocks. Dependent edema in the soft tissues of the back. IMPRESSION: 1. Thickened irregular bladder wall of concern for cystitis or it neoplastic process versus bladder outlet obstruction. 2. Enlarged lobulated prostate possibly resulting in bladder outlet obstruction. Consider MRI of the prostate to rule out prostate carcinoma. 3. Additional findings as discussed above. Dictated and Authenticated by: Ruth Ann Syed MD. Ordering:GILL Linn MD
[2022-08-30] MEDS: levoFLOXacin 500 MG, levoFLOXacin 250 MG 750 MG PO (13:47)
--- NOTE | 2022-08-31 02:39 | NUR.NOTE ---
Referrals faxed to both patient pcp and Urology to f/u for enlarged prostate (urology) and uti (pcp).Nursing Note:
== END 2022-08-30 14:35 | disposition home or self-care (01) ==
PROVIDERS: Emergency Provider Physician Assistant; PCP Family Medicine
DX: N39.0 Urinary tract infection, site not specified (principal); R53.1 Weakness; N40.1 Benign prostatic hyperplasia with lower urinary tract symptoms; G20 Parkinson's disease; I10 Essential (primary) hypertension; E78.5 Hyperlipidemia, unspecified; R29.810 Facial weakness; R20.2 Paresthesia of skin; R10.11 Right upper quadrant pain
CPT/HCPCS: 36415; 74177; 80053; 83690; 87637; 93005; 96360; 96361; 99285; 70450; 71260; 81003; 81015; 83605; 83735; 84484; 85025; 87086; 93010; 99284; J3490

== ENCOUNTER 2022-09-01 09:09 | Emergency (ER) | payer MEDICARE, SELFPAY ==
[2022-09-01 09:20] VITALS: BP 136/76; PULSE 92; RESP 18; TEMP 37.2; O2SAT 97
--- NOTE | 2022-09-01 09:40 | W.ED.GENAD ---
Discharge Plan Disposition Patient Disposition: Home Discharge Details Clinical Impression: Fatigue, Benign prostatic hyperplasia Primary Care Provider: Maria R Wick ED Provider: Teo Mercado Meds and New Rx's Prescriptions: Continued lisinopril 5 mg tablet 20 mg PO DAILY simvastatin 40 mg tablet 40 mg PO QHS hydroxyzine HCl 25 mg tablet See Rx Instructions PO QID PRN (Reason: tremor) Qty: 30 2RF Rx Instructions: Take 1-2 tablets every 6 hours as needed for tremor lamotrigine [Lamictal] 100 mg tablet 250 mg PO DAILY melatonin 3 mg capsule 3 mg PO HS PRN citalopram [Celexa] 10 mg tablet 20 mg PO DAILY pyridostigmine bromide 60 mg tablet 30 mg PO DIRECTED Qty: 90 3RF Rx Instructions: Take 30mg daily in the am. Ok to take an extra 30mg q6hr prn dizziness (max 120mg daily). gabapentin 600 mg tablet See Rx Instructions .ROUTE .COMPLEX Qty: 270 3RF Dose Instruction: TAKE 1 TABLET BY MOUTH 3 TIMES DAILY Rx Instructions: TAKE 1 TABLET BY MOUTH 3 TIMES DAILY gabapentin 300 mg capsule 300 mg PO QHS Qty: 90 3RF Rx Instructions: Take in addition to 600 mg evening dose for a total of 900 mg finasteride 5 mg tablet 5 mg PO DAILY tamsulosin 0.4 mg capsule 0.4 mg PO QHS cyanocobalamin (vitamin B-12) [Vitamin B-12] 1,000 MCG tablet 1,000 mcg PO DAILY omeprazole 40 MG capsule,delayed release(DR/EC) 40 mg PO DAILY cholecalciferol (vitamin D3) [Vitamin D3] 2,000 UNIT capsule 2,000 unit PO DAILY levofloxacin 750 mg tablet 750 mg PO DAILY 4 Days Qty: 4 0RF levofloxacin 750 mg tablet 750 mg PO DAILY 4 Days Qty: 4 0RF Discharge Instructions Instructions: Fatigue (ED) Additional Instructions: Drink plenty of fluids, take Ensure, Melatonin for sleep, Discharge Data Discharge Date/Time-TO BE ENTERED AT DEPARTURE: 09/01/22 12:32 Discharge Physician: Teo Mercado Medical Decision Making Patient presents to the Emergency Department 4 days ago with a urine tract infection most likely because of BPH and he was treated with levofloxacin. Returns today for he is not 100% and wanted to get retested his labs are unremarkable he does not have a white blood cell count this renal function is normal and urinalysis does not show any pyuria or bacteria so is definitely improving. He is to continue the antibiotic regimen until finished and continue his tamsulosin for his BPH Medical Records Medical records reviewed: Yes I reviewed the patient's medical records. Lab Data Lab results reviewed: Yes I reviewed the patient's lab results. Lab results narrative: Labs are all within normal limits with improvement in the urinalysis which does not show any white blood cells or signs of infection Labs: RUN DATE: 09/01/22 [facility] PAGE 1 RUN TIME: [address] RUN USER: [place] [address] Sydnee Alejandra MD PATIENT REPORT PATIENT: Diego Cummnigs LOC: ER U #: [id number] /SX: 1940 M ROOM: RE09/01/[address]: Teo Mercado M.D. STATUS: REG ER BED: DIS: SPEC #: [id number] GUCCI: 09/01/22 STATUS: COMP REQ #: [id number] RECD: 09/01/[address] [facility] DR: Teo Mercado M.D. ENTERED: 09/01/[address] [facility] [address]: MARIA R WICK MD FAX #: ORDERED: CMP Test Result Flag Reference Verified Calcium 10.4 H 8.5-10.1 mg/dL 09/01/22 Glucose 107 H 74-106 mg/dL 09/01/22 BUN 11 7-18 mg/dL 09/01/22 Creatinine 1.1 0.70-1.30 mg/dL 09/01/22 Estimated GFR 67.44 mL/min/1.73m2 09/01/22 The eGFR is calculated from a serum creatinine using the CKD-EPI 2020 equation. Other variables required for the equation are gender and age; this equation does not include a race coefficient. This equation has similar overall performance to previous equations except values may differ, in particular, in patients with higher values of eGFR and younger-aged adults. Total Protein 9.8 H 6.4-8.2 g/dL 09/01/22 Albumin 4.0 3.4-5.0 g/dL 09/01/22 Bilirubin, Total 0.7 0.2-1.0 mg/dL 09/01/22 Alk Phos 83 46-116 U/L 09/01/22 Sodium 138 136-145 mmol/L 09/01/22 Potassium 3.4 L 3.5-5.1 mmol/L 09/01/22 Chloride 100 98-107 mmol/L 09/01/22 CO2 28.1 21.0-32.0 mmol/L 09/01/22 Anion Gap 9.9 3-11 mmol/L 09/01/22 AST 17 15-37 U/L 09/01/22 ALT 16 16-63 U/L 09/01/[address] RUN USER: [place] [address] Sydnee Alejandra MD PATIENT REPORT PATIENT: Diego Cummings LOC: ER U #: [id number] /SX: 1940 M ROOM: RE09/01/[address]: Teo Mercado M.D. STATUS: REG ER BED: DIS: SPEC #: [id number] GUCCI: 09/01/22 STATUS: COMP REQ #: [id number] RECD: 09/01/[address]: Teo Mercado M.D. ENTERED: 09/01/[address] [facility] [address]: DELANO LUCIO, MARIA R FAX #: ORDERED: CBC/Diff Test Result Flag Reference Verified WBC 4.55 4.4-10.8 10^3/uL 09/01/22 RBC 4.19 L 4.36-5.78 10^6/uL 09/01/22 HGB 13.1 L 13.5-17.5 g/dL 09/01/22 HCT 39.1 L 40.0-50.0 % 09/01/22 MCV 93 80-95 fL 09/01/22 MCH 31.3 27.0-33.0 pg 09/01/22 MCHC 33.5 32.0-36.0 % 09/01/22 RDW 12.8 11.8-14.1 % 09/01/22 Platelet Count 228 130-400 10^3/uL 09/01/22 MPV 9.2 8.0-11.0 fL 09/01/22 Neutrophils % 81.1 09/01/22 Lymphocytes % 9.7 09/01/22 Monocytes % 8.8 09/01/22 Eosinophils % 0.2 09/01/22 Basophils % 0.0 09/01/22 Immature Grans % 0.2 09/01/22 Nucleated RBC 0.0 0.0-0.3 % 09/01/22 Absolute Neutrophil Count 3.69 1.2-6.7 10^3/uL 09/01/22 Absolute Lymphocyte Count 0.44 L 1.2-3.4 10^3/uL 09/01/22 Absolute Monocyte Count 0.40 0.1-0.8 10^3/uL 09/01/22 Absolute Eosinophil Count 0.01 0.0-0.7 10^3/uL 09/01/22 Absolute Basophil Count 0.00 0.0-0.2 10^3/uL 09/01/22 Patient: Diego Cummings LABORATORY Acct#[id number] Unit#[id number] Result Flag Reference Verified Color Yellow Yellow 09/01/22 Clarity Clear Clear 09/01/22 Specific [place] >= 1.030 H 1.005-1.025 09/01/22 pH 7.0 5-8 09/01/22 Leukocyte Esterase Negative Negative 09/01/22 Nitrite Negative Negative 09/01/22 Protein Negative Negative mg/dL 09/01/22 Glucose Negative Negative mg/dL 09/01/22 Ketones Negative Negative mg/dL 09/01/22 Urobilinogen 0.2 Up to 0.2 mg/dL 09/01/221058 Bilirubin Negative Negative 09/01/22-1058 Blood Trace-intact H Negative 09/01/22-1058 WBC Negative 0-5 HPF 09/01/22 RBC 0-2 0-2 HPF 09/01/22-1103 Epithelial Cells Rare Negative HPF 09/01/22 Bacteria Negative Negative HPF 09/01/22 Crystals Negative Negative HPF 09/01/22 Mucus Trace Negative 09/01/22 Casts Negative Negative LPF 09/01/22 C & S Indicated? No 09/01/22 HPI General Date/Time Provider Initiated Documentation: 09/01/22 09:36. HPI Narrative: Patient presents to the emergency department stating that he has been treated with antibiotic for urinary tract infection for he has an enlarged prostate but came back today to be reevaluated for he does not know if the antibiotic is working. He states that he still sometimes fatigue his appetite is improved but not 100% and is sometimes experiences nocturia. Denies any fever denies any chills denies any nausea denies any vomiting. Related Data Home Medications Medication Instructions Recorded Confirmed cyanocobalamin (vitamin B-12) 1,000 mcg PO DAILY 09/09/12 09/01/22 1,000 mcg tablet (Vitamin B-12) omeprazole 40 mg capsule,delayed 40 mg PO DAILY 09/09/12 09/01/22 release cholecalciferol (vitamin D3) 50 2,000 unit PO DAILY 09/13/14 09/01/22 mcg (2,000 unit) capsule (Vitamin D3) lisinopril 5 mg tablet 20 mg PO DAILY 01/31/19 09/01/22 lamotrigine 100 mg tablet 250 mg PO DAILY 03/27/20 09/01/22 (Lamictal) simvastatin 40 mg tablet 40 mg PO QHS 03/27/20 09/01/22 melatonin 3 mg capsule 3 mg PO HS PRN 07/24/20 09/01/22 citalopram 10 mg tablet (Celexa) 20 mg PO DAILY 12/19/20 09/01/22 pyridostigmine bromide 60 mg tablet 30 mg PO DIRECTED #90 tabs 10/31/21 09/01/22 gabapentin 600 mg tablet See Rx Instructions .Route 01/20/22 09/01/22 .COMPLEX #270 tabs gabapentin 300 mg capsule 300 mg PO QHS #90 caps 04/15/22 09/01/22 hydroxyzine HCl 25 mg tablet See Rx Instructions PO QID PRN 05/26/22 09/01/22 tremor #30 tabs finasteride 5 mg tablet 5 mg PO DAILY 06/10/22 09/01/22 tamsulosin 0.4 mg capsule 0.4 mg PO QHS 06/10/22 09/01/22 levofloxacin 750 mg tablet 750 mg PO DAILY 4 days #4 tabs 08/30/22 09/01/22 levofloxacin 750 mg tablet 750 mg PO DAILY 4 days #4 tabs 08/30/22 09/01/22 Previous Rx's Medication Instructions Recorded pyridostigmine bromide 60 mg tablet 30 mg PO DIRECTED #90 tabs 10/31/21 gabapentin 600 mg tablet See Rx Instructions .Route 01/20/22 .COMPLEX #270 tabs gabapentin 300 mg capsule 300 mg PO QHS #90 caps 04/15/22 hydroxyzine HCl 25 mg tablet See Rx Instructions PO QID PRN 05/26/22 tremor #30 tabs levofloxacin 750 mg tablet 750 mg PO DAILY 4 days #4 tabs 08/30/22 levofloxacin 750 mg tablet 750 mg PO DAILY 4 days #4 tabs 08/30/22 Allergies Allergy/AdvReac Type Severity Reaction Status Date / Time Penicillins Allergy Intermediate hands and Verified 09/01/22 09:24 feet swell General Stated Complaint: Urinary NEHA: 3 Review of Systems All systems reviewed & are unremarkable except as noted in HPI and below Constitutional Constitutional: Reports as per HPI, Reports difficulty sleeping and Reports poor appetite Eyes Eyes: Reports as per HPI and Reports system reviewed and no additional complaints, except as documented ENT Ears, Nose, Mouth, and Throat: Reports system reviewed and no additional complaints, except as documented and Reports as per HPI Cardiovascular Cardiovascular: Reports as per HPI and Reports system reviewed and no additional complaints, except as documented Respiratory Respiratory: Reports as per HPI and Reports system reviewed and no additional complaints, except as documented Genitourinary Genitourinary: Reports difficulty urinating and Reports urinary frequency Musculoskeletal Musculoskeletal: Reports system reviewed and no additional complaints, except as documented Neurologic Neurologic: Reports system reviewed and no additional complaints, except as documented and Reports as per HPI Psychiatric Psychiatric: Reports system reviewed and no additional complaints, except as documented and Reports abnormal sleep pattern Endocrine Endocrine: Reports system reviewed and no additional complaints, except as documented PFSH All Active Problems UTI (urinary tract infection) (Acute) Enlarged prostate (Acute) Generalized weakness (Acute) Chills (Acute) Fatigue (Acute) Benign prostatic hyperplasia (Chronic) Solitary thyroid nodule (Acute) Tremor (Acute) Dementia (Chronic) Monoclonal gammopathy (Acute) Hypertension (Chronic) Urinary incontinence (Acute) Serrated adenoma of colon (Acute) Hyperplastic colon polyp (Acute) Tubular adenoma of colon (Acute) Dyspnea (Acute) Adenoma of colon (Acute) Parkinsonism (Chronic) Tardive dyskinesia (Chronic) Memory loss (Chronic) Screening for colon cancer (Acute) Suicidal ideation (Acute) Medical History Ankle fracture, right BPH (benign prostatic hyperplasia) Cognitive impairment 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 denies this Peripheral neuropathy Thyroid nodule UTI (urinary tract infection) (09/13/14) Surgical History ankle H/O surgical procedure a. appendectomy b. cholecystectomy c. resection of benign tumor right lung History of colonoscopy (~11/2021) History of lung surgery Hx of cholecystectomy Family History Other Stroke Social History Smoking/Tobacco Use Status: Former Tobacco Use Quit Date: 04/13/79 Smoking risk assessment performed?: Yes Alcohol Intake: never Drug use: Never Substance use type: does not use Household members: spouse What is your relationship status?: Panel score (0-1 are the most socially isolated patients): 1 Additional Social history: Unable to assess privatley Per pt. states he was in recently in a care bed 11/15/21, states he has been struggling because he just lost a brother, and per pt. they needed a break from eachother. Per pt. states he no longer has thoughts of harming himself or others. Exam Narrative Exam Narrative: Exam; vitals signs as reported above Constitutional; In no acute distress, afebrile General: cooperative, healthy appearing, comfortable and no acute distress HENMT: Head: normal to inspection, no palpable skull fracture and normocephalic Eyes: l: appearance normal, both eyes and all related structures Pupils: PERRL EOM: EOM intact bilaterally Direct ophthalmoscopy: normal light reflex, normal conjunctiva, normal visual acuity Neck no JVD, supple Neck: normal visual inspection, full ROM and no lymphadenopathy Chest Chest: normal inspection of the chest Respiratory : normal respiratory effort and able to speak in complete sentences Cardio Rate: regular rate Rhythm: regular rhythm normal heart sounds S1 and S2 no murmurs, gallops, or rubs GI Inspection: normal to inspection, normal bowel sounds, soft, non tender, non distended, no organomegally Back/Spine/ no CVA tenderness Thoracic/Lumbar Spine: no tenderness or deformities Skin no rashes or lesions Neuro: patient alert and no meningeal signs, Cranial Nerves: CN's II-XI intact bilaterally, Cognition: normal cognition, Speech: speech normal, Gait: normal gait, Depp tendon reflexes normal 2+ Extremities, no edema, full range of motion, normal strength Course Patient returns to the emergency department to make sure that he has been improving from a UTI that he was diagnosed 4 days ago and has been taking levofloxacin. Vital Signs Vital signs: Vital Signs Temperature 37.2 C 09/01/22 09:20 Pulse 92 H 09/01/22 09:20 Respiratory Rate 18 09/01/22 09:20 Blood Pressure 136/76 09/01/22 09:20 Pulse Oximetry 97 09/01/22 09:20 Temperature 37.2 C 09/01/22 09:20 Temperature Source Temporal Artery Scan 09/01/22 09:20 Pulse 92 H 09/01/22 09:20 Respiratory Rate 18 09/01/22 09:20 Respiratory Effort Normal, Non-Labored 09/01/22 09:25 Blood Pressure 136/76 09/01/22 09:20 Blood Pressure Position Sitting 09/01/22 09:20 Pulse Oximetry 97 09/01/22 09:20 Oxygen Delivery Method Room Air 09/01/22 09:20 Oxygen Flow Rate 0 09/01/22 09:20 Lab/Test Results Lab/Test Results: RUN DATE: 09/02/22 [facility] PAGE 1 RUN TIME: [address] RUN USER: [place] [address] Sydnee Alejandra MD PATIENT REPORT PATIENT: Diego Cummings LOC: ER U #: [id number] /SX: 1940 M ROOM: RE09/01/[address]: Teo Mercado M.D. STATUS: DEP ER BED: DIS: SPEC #: [id number] GUCCI: 09/01/22 STATUS: COMP REQ #: [id number] RECD: 09/01/[address]: Teo Mercado M.D. ENTERED: 09/01/[address]: DELANO LUCIO, MARIA R FAX #: ORDERED: CBC/Diff Test Result Flag Reference Verified WBC 4.55 4.4-10.8 10^3/uL 09/01/22 RBC 4.19 L 4.36-5.78 10^6/uL 09/01/22 HGB 13.1 L 13.5-17.5 g/dL 09/01/22 HCT 39.1 L 40.0-50.0 % 09/01/22 MCV 93 80-95 fL 09/01/22 MCH 31.3 27.0-33.0 pg 09/01/22 MCHC 33.5 32.0-36.0 % 09/01/22 RDW 12.8 11.8-14.1 % 09/01/22 Platelet Count 228 130-400 10^3/uL 09/01/22 MPV 9.2 8.0-11.0 fL 09/01/22 Neutrophils % 81.1 09/01/22 Lymphocytes % 9.7 09/01/22 Monocytes % 8.8 09/01/22 Eosinophils % 0.2 09/01/22 Basophils % 0.0 09/01/22 Immature Grans % 0.2 09/01/22 Nucleated RBC 0.0 0.0-0.3 % 09/01/22 Absolute Neutrophil Count 3.69 1.2-6.7 10^3/uL 09/01/22 Absolute Lymphocyte Count 0.44 L 1.2-3.4 10^3/uL 09/01/22 Absolute Monocyte Count 0.40 0.1-0.8 10^3/uL 09/01/22 Absolute Eosinophil Count 0.01 0.0-0.7 10^3/uL 09/01/22 Absolute Basophil Count 0.00 0.0-0.2 10^3/uL 09/01/22 RUN DATE: 09/02/22 [facility] PAGE 1 RUN TIME: [address] RUN USER: [place] [address] Sydnee Alejandra MD PATIENT REPORT PATIENT: Diego Cummings LOC: ER U #: [id number] /SX: 1940 M ROOM: RE09/01/[address]: Teo Mercado M.D. STATUS: DEP ER BED: DIS: SPEC #: [id number] GUCCI: 09/01/22 STATUS: COMP REQ #: [id number] RECD: 09/01/[address]: Teo Mercado M.D. ENTERED: 09/01/[address] [facility] [address]: DELANO LUCIO, MARIA R FAX #: ORDERED: CMP Test Result Flag Reference Verified Calcium 10.4 H 8.5-10.1 mg/dL 09/01/22 Glucose 107 H 74-106 mg/dL 09/01/22 BUN 11 7-18 mg/dL 09/01/22 Creatinine 1.1 0.70-1.30 mg/dL 09/01/22 Estimated GFR 67.44 mL/min/1.73m2 09/01/22 The eGFR is calculated from a serum creatinine using the CKD-EPI 2020 equation. Other variables required for the equation are gender and age; this equation does not include a race coefficient. This equation has similar overall performance to previous equations except values may differ, in particular, in patients with higher values of eGFR and younger-aged adults. Total Protein 9.8 H 6.4-8.2 g/dL 09/01/22 Albumin 4.0 3.4-5.0 g/dL 09/01/22 Bilirubin, Total 0.7 0.2-1.0 mg/dL 09/01/22 Alk Phos 83 46-116 U/L 09/01/22 Sodium 138 136-145 mmol/L 09/01/22 Potassium 3.4 L 3.5-5.1 mmol/L 09/01/22 Chloride 100 98-107 mmol/L 09/01/22 CO2 28.1 21.0-32.0 mmol/L 09/01/22 Anion Gap 9.9 3-11 mmol/L 09/01/22 AST 17 15-37 U/L 09/01/22 ALT 16 16-63 U/L 09/01/22 Patient: Diego Cummings Dominic Test Result Flag Reference Verified Color Yellow Yellow 09/01/22 Clarity Clear Clear 09/01/22 Specific [place] >= 1.030 H 1.005-1.025 09/01/22 pH 7.0 5-8 09/01/22 Leukocyte Esterase Negative Negative 09/01/22 Nitrite Negative Negative 09/01/22 Protein Negative Negative mg/dL 09/01/22 Glucose Negative Negative mg/dL 09/01/22 Ketones Negative Negative mg/dL 09/01/22 Urobilinogen 0.2 Up to 0.2 mg/dL 09/01/22 Bilirubin Negative Negative 09/01/22 Blood Trace-intact H Negative 09/01/22 WBC Negative 0-5 HPF 09/01/22 RBC 0-2 0-2 HPF 09/01/22 Epithelial Cells Rare Negative HPF 09/01/22 Bacteria Negative Negative HPF 09/01/22 Crystals Negative Negative HPF 09/01/22 Mucus Trace Negative 09/01/22 Casts Negative Negative LPF 09/01/22 C & S Indicated? No 09/01/22
[2022-09-01 10:51] LABS: Abs Immature Grans 0.01 10^3/uL (0.0-0.06); Absolute Eosinophil Count 0.01 10^3/uL (0.0-0.7); Absolute Lymphocyte Count 0.44 10^3/uL (1.2-3.4); Absolute Neutrophil Count 3.69 10^3/uL (1.2-6.7); Eosinophils % 0.2; HCT 39.1 % (40.0-50.0); HGB 13.1 g/dL (13.5-17.5); Immature Grans % 0.2; Lymphocytes % 9.7; MCH 31.3 pg (27.0-33.0); MCHC 33.5 % (32.0-36.0); MCV 93 fL (80-95); MPV 9.2 fL (8.0-11.0); Monocytes % 8.8; Neutrophils % 81.1; Platelet Count 228 10^3/uL (130-400); RBC 4.19 10^6/uL (4.36-5.78); RDW 12.8 % (11.8-14.1); RDW-SD 43.9 fL; WBC 4.55 10^3/uL (4.4-10.8)
[2022-09-01 10:57] LABS: Bilirubin Negative (Negative); Blood Trace-intact (Negative); Clarity Clear (Clear); Glucose Negative (Negative); Ketones Negative (Negative); Leukocyte Esterase Negative (Negative); Nitrite Negative (Negative); Specific Gravity >= 1.030 (1.005-1.025); Urobilinogen 0.2 mg/dL (Up to 0.2)
[2022-09-01 11:03] LABS: Lactate 0.9 MMOL/l (0.9-1.7)
[2022-09-01 11:04] LABS: Bacteria Negative HPF (Negative); C & S Indicated? No; Casts Negative LPF (Negative); Crystals Negative HPF (Negative); Epithelial Cells Rare HPF (Negative); Mucus Trace (Negative); RBC 0-2 HPF (0-2); WBC Negative HPF (0-5)
[2022-09-01 11:48] LABS: ALT 16 U/L (16-63); AST 17 U/L (15-37); Alkaline Phosphatase 83 U/L (46-116); Anion Gap 9.9 mmol/L (3-11); BUN 11 mg/dL (7-18); Bilirubin, Total 0.7 mg/dL (0.2-1.0); CO2 28.1 mmol/L (21.0-32.0); CREATININE 1.1 mg/dL (0.70-1.30); Calcium 10.4 mg/dL (8.5-10.1); Chloride 100 mmol/L (98-107); Estimated GFR 67.44 (mL/min/1.73m2); Glucose 107 mg/dL (74-106); Potassium 3.4 mmol/L (3.5-5.1); Sodium 138 mmol/L (136-145); Total Protein 9.8 g/dL (6.4-8.2)
[2022-09-01 12:15] VITALS: BP 143/81; PULSE 95; RESP 18; TEMP 36.4; O2SAT 97
== END 2022-09-01 12:32 | disposition home or self-care (01) ==
PROVIDERS: Emergency Provider Emergency Medicine Emergency Medical Services; PCP Family Medicine
DX: G47.09 Other insomnia (principal); R11.0 Nausea; R53.83 Other fatigue; N40.1 Benign prostatic hyperplasia with lower urinary tract symptoms
CPT/HCPCS: 80053; 99283; 81003; 81015; 83605; 85025

== ENCOUNTER 2022-09-05 08:56 | Outpatient (CLI) | payer MEDICARE, SELFPAY ==
[2022-09-05 10:20] LABS: Anion Gap 5.7 mmol/L (3-11); BUN 16 mg/dL (7-18); CO2 31.3 mmol/L (21.0-32.0); CREATININE 1.1 mg/dL (0.70-1.30); Calcium 10.1 mg/dL (8.5-10.1); Chloride 104 mmol/L (98-107); Estimated GFR 67.44 (mL/min/1.73m2); Glucose 104 mg/dL (74-106); Potassium 3.9 mmol/L (3.5-5.1); Sodium 141 mmol/L (136-145)
[2022-09-05 10:46] LABS: Vitamin D 25 Total 58.6 ng/mL (30-100)
[2022-09-05 20:32] LABS: Parathyroid Hormone,Intact 48 pg/mL (19-88)
[2022-09-11 10:05] LABS: 25-Hydroxy D Total 41 ng/mL; 25-Hydroxy D2 <4.0 ng/mL; 25-Hydroxy D3 41 ng/mL
[2022-09-15 10:05] LABS: PTH-Related Peptide 0.6 pmol/L (< or = 4.2)
== END 2022-09-05 08:57 | disposition home or self-care (01) ==
LOC: LBO 08:57
PROVIDERS: PCP Family Medicine; Visit Provider Family Medicine
DX: R41.82 Altered mental status, unspecified (principal); I10 Essential (primary) hypertension; N40.0 Benign prostatic hyperplasia without lower urinary tract symptoms
CPT/HCPCS: 36415; 80048; 82306; 82397; 83970

== ENCOUNTER 2022-09-15 00:59 | Outpatient (CLI) | payer MEDICARE, SELFPAY ==
--- NOTE | 2022-09-15 | DI.MRI_ITS ---
Exam(s) MR BRAIN WO EXAM: MR BRAIN WO CLINICAL HISTORY: ALTERED MENTAL STATUS R41.82 CONFUSION R41.0 WEAKNESS TECHNIQUE: Multiplanar multisequence MRI of the brain was performed. COMPARISON: MR MR BRAIN WO from 01/27/[address] HEAD - STROKE PROTOCOL from 08/30/2022 FINDINGS: VENTRICLES AND EXTRA AXIAL SPACES: Normal in size and morphology for the patient's age. MIDLINE SHIFT: None. CEREBRAL PARENCHYMA: No focus of restricted diffusion to suggest acute infarct. No space-occupying le marva identified. There are multiple foci of hyperintense signal on the FLAIR and T2 weighted images i n the white matter most consistent with small vessel ischemic disease. HEMORRHAGE: None. BRAINSTEM/CEREBELLUM: Normal. CALVARIUM: Normal. VISUALIZED PARANASAL SINUSES/MASTOIDS:Mucous retention cysts or polyps are seen in the maxillary sinu ses. The remaining visualized paranasal sinuses are clear. The mastoid air cells are well pneumatiz ed. [facility]: Normal flow void. PITUITARY GLAND: Unremarkable. OTHER FINDINGS: There is again seen and artifact in the soft tissues overlying the high right parieta l bone. IMPRESSION: 1. No acute intracranial process. 2. 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 DATA REPOSITORY:
== END 2022-09-15 01:19 ==
LOC: DI 00:59
PROVIDERS: PCP Family Medicine; Visit Provider Family Medicine
DX: R41.82 Altered mental status, unspecified (principal)
CPT/HCPCS: 70551

== ENCOUNTER → 2022-10-13 09:47 | Outpatient (BNVA) | payer MEDICARE, SELFPAY | PROVIDERS: PCP Family Medicine; Referring Provider Family Medicine; Visit Provider Nurse Practitioner Gerontology | DX: R33.9 Retention of urine, unspecified (principal); N40.1 Benign prostatic hyperplasia with lower urinary tract symptoms; N13.8 Other obstructive and reflux uropathy; I10 Essential (primary) hypertension; G20 Parkinson's disease | CPT/HCPCS: 51798; 81003; 99214 ==

== ENCOUNTER → 2022-11-25 08:52 | Outpatient (BNVA) | payer MEDICARE, SELFPAY | PROVIDERS: PCP Family Medicine; Referring Provider Family Medicine; Visit Provider Nurse Practitioner Adult Health | DX: R41.3 Other amnesia (principal); F39 Unspecified mood [affective] disorder; G25.0 Essential tremor; G20 Parkinson's disease; G24.01 Drug induced subacute dyskinesia; I10 Essential (primary) hypertension; R26.81 Unsteadiness on feet | CPT/HCPCS: 99215 ==

== ENCOUNTER 2022-12-15 00:33 | Emergency (ER) | payer MEDICARE, SELFPAY ==
--- NOTE | 2022-12-15 00:30 | DI.RAD_ITS ---
Exam(s) XR CHEST 2V PA LATERAL EXAM: XR CHEST 2V PA LATERAL CLINICAL HISTORY: syncope TECHNIQUE: 2D digital imaging was performed of the chest. Three images were obtained. PA and later al views were obtained. COMPARISON: CR XR CHEST 2V PA LATERAL from 01/14/[address] HEAD CERVICAL SPINE WO from 12/15/2022 FINDINGS: MEDIASTINUM: Normal. HEART: Normal. PULMONARY VASCULATURE: Normal. LUNGS: The lungs appear hyperinflated suggesting underlying COPD. No focal consolidation is seen. PLEURAL SPACE: No pleural effusion or pneumothorax. BONE:Within normal limits for the patient's age. Old healed left rib fractures are present. OTHER FINDINGS:Normal. IMPRESSION: No acute pulmonary findings. DATA REPOSITORY: RADIATION DOSE DELIVERED:
--- NOTE | 2022-12-15 00:30 | DI.RAD_ITS ---
Exam(s) XR PELVIS AP EXAM: XR PELVIS AP CLINICAL HISTORY: fall from standing. TECHNIQUE: 2D digital imaging was performed. One image was obtained. COMPARISON: No exams were available for comparison FINDINGS: BONES: No acute fracture is present. No bony destructive lesion is seen. There is a deformity of the right femoral neck which may be positional. If there is concern for right femoral neck fracture a de dicated right hip examination should be obtained. JOINTS: No dislocation present. Degenerative changes are seen in the lower lumbar spine. SOFT TISSUE: Normal. IMPRESSION: 1. No definite acute fracture or dislocation. 2. There is some deformity seen of the right 5th proximal femur. This may be positional. If there i s concern for femoral neck fracture, a dedicated right hip examination should be obtained. DATA REPOSITORY: RADIATION DOSE DELIVERED:
--- NOTE | 2022-12-15 00:30 | RT.EKG_ITS ---
APPROVED REPORT Exam: Resting ECG Reason for Exam: Falls Patient Location: E HR:64 bpm ECG Measurements Heart Rate 64 AXIS NV 161 P 71 QRSd 83 QRS 73 QT 408 T 70 QTc 423 Conclusion Sinus rhythm...normal P axis, V-rate 60- 99 ST elevation, consider inferior injury...ST >0.08mV, II III aVF sinus rhythm, normal axis, normal intervals, non ischemic; J point elevation inferior leads
[2022-12-15 00:34] VITALS: BP 117/63; PULSE 65; RESP 16; TEMP 36.6; O2SAT 98
--- NOTE | 2022-12-15 00:36 | DI.CT_ITS ---
Exam(s) CT HEAD CERVICAL SPINE WO EXAM: CT HEAD CERVICAL SPINE WO CLINICAL HISTORY: syncope, fall. TECHNIQUE: Imaging Protocol: Axial computed tomography images with coronal and sagittal reformatted images were created and reviewed COMPARISON: CT CT HEAD - STROKE PROTOCOL from 08/30/2022 FINDINGS: There is artifact from the patient's dental amalgam. CT Head: Ventricles and Extra axial spaces: Normal in size and morphology for the patient's age. Hemorrhage: None. 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 There are areas of decreas ed attenuation in the white matter most consistent with small vessel ischemic disease. No acute terr itorial infarct is present. Midline shift: None. Brainstem/Cerebellum: Normal. Calvarium: Normal. Visualized Paranasal sinuses/Mastoids: Mucous retention cysts or polyps are seen in the maxillary sin uses. No air-fluid levels are seen. The mastoid air cells are well aerated. Soft Tissues: Unremarkable. CT Cervical Spine: Bones: No acute fracture or subluxation. Degenerative changes are seen in the cervical spine. There may be a periapical dental abscess associated with the anterior right mandibular molar. Dental follo w-up is recommended. Soft Tissues: Unremarkable. Lung Apices: Clear. IMPRESSION: 1. No acute intracranial process. 2. No acute fracture or subluxation in the cervical spine. Unexpected findings RADIATION DOSE DELIVERED: 1,700.6mGy.cm Total DLP DATA REPOSITORY: All CT scans at this facility are submitted to the National Radiology Data Registry (NRDR) Dose Index Registry (DIR) with the [employer] (A[employer]). RADIATION OPTIMIZATION: All CT scans at this facility use at least one of these dose optimization te chniques: automated exposure control; mA and/or kV adjustment per patient size (includes targeted exa ms where dose is matched to clinical indication); or iterative reconstruction.
--- NOTE | 2022-12-15 00:40 | ED.GENADUL_ITS ---
Discharge Plan Disposition Patient Disposition: Home Condition: Improving Discharge Details Chief Complaint: Fall/Non TraumaCriteria Clinical Impression: Acute dehydration, Fall Primary Care Provider: Maria R Woods ED Provider: Jimenez Stone Home Meds and New Rx's Prescriptions: No Action lisinopril 5 mg tablet 10 mg PO DAILY simvastatin 40 mg tablet 40 mg PO QHS hydroxyzine HCl 25 mg tablet See Rx Instructions PO QID PRN (Reason: tremor) Qty: 30 2RF Rx Instructions: Take 1-2 tablets every 6 hours as needed for tremor tamsulosin 0.4 mg capsule 0.8 mg PO DAILY Qty: 180 1RF lamotrigine [Lamictal] 100 mg tablet 250 mg PO DAILY melatonin 3 mg capsule 3 mg PO HS PRN citalopram [Celexa] 10 mg tablet 20 mg PO DAILY pyridostigmine bromide 60 mg tablet 30 mg PO DIRECTED Qty: 90 3RF Rx Instructions: Take 30mg daily in the am. Ok to take an extra 30mg q6hr prn dizziness (max 120mg daily). gabapentin 300 mg capsule 300 mg PO QHS Qty: 90 3RF Rx Instructions: Take in addition to 600 mg evening dose for a total of 900 mg finasteride 5 mg tablet 5 mg PO DAILY gabapentin 600 mg tablet See Rx Instructions .ROUTE .COMPLEX Qty: 270 3RF Dose Instruction: TAKE 1 TABLET BY MOUTH 3 TIMES DAILY Rx Instructions: TAKE 1 TABLET BY MOUTH 3 TIMES DAILY cyanocobalamin (vitamin B-12) [Vitamin B-12] 1,000 MCG tablet 1,000 mcg PO DAILY omeprazole 40 MG capsule,delayed release(DR/EC) 40 mg PO DAILY cholecalciferol (vitamin D3) [Vitamin D3] 2,000 UNIT capsule 2,000 unit PO DAILY Discharge Instructions Instructions: Dehydration (ED) Medical Decision Making 82-year-old male history of parkinsonism, tardive dyskinesia, presents after fall/syncope at home. Per EMS the house was extremely hot. Patient alert interactive following commands moving all extremities. No external signs of trauma however patient does have midline cervical spine tenderness. Without cre pitus step-off or deformity. Normotensive nontachycardic afebrile. Normoxic. No chest pain or shortness of breath. Consider dehydration with orthostasis versus vasovagal versus cardiogenic cause of syncope/fall such as ACS lower suspicion for PE was also consider arrhythmia versus electrolyte abnormality versus infectious process such as pneumonia or UTI or viral syndrome lower suspicion for aortic pathology or intra-abdominal pathology given history physical. Will obtain screening CT head CT C-spine, x-ray pelvis. Fluids analgesia anti-inflammatory. Disposition pending reassessment and reevaluate 2: 09 patient appears greatly improved. Was able to ambulate to commode with assistance. Likely component of dehydration and overexertion today in the heat. Took a long walk in the heat per . Home care instructions and return precautions given HPI General Date/Time Provider Initiated Documentation: 12/15/22 00:36 . HPI Narrative: 82-year-old male history of parkinsonism, tardive dyskinesia, dementia, presents after multiple falls from standing, felt slightly lightheaded. Collapsed to the ground. No chest pain or shortness of breath. Per EMS house was extremely hot on arrival. Related Data Home Medications Medication Instructions Recorded Confirmed cyanocobalamin (vitamin B-12) 1,000 mcg PO DAILY 09/09/12 12/15/22 1,000 mcg tablet (Vitamin B-12) omeprazole 40 mg capsule,delayed 40 mg PO DAILY 09/09/12 12/15/22 release cholecalciferol (vitamin D3) 50 2,000 unit PO DAILY 09/13/14 12/15/22 mcg (2,000 unit) capsule (Vitamin D3) lamotrigine 100 mg tablet 250 mg PO DAILY 03/27/20 12/15/22 (Lamictal) simvastatin 40 mg tablet 40 mg PO QHS 03/27/20 12/15/22 melatonin 3 mg capsule 3 mg PO HS PRN 07/24/20 12/15/22 citalopram 10 mg tablet (Celexa) 20 mg PO DAILY 12/19/20 12/15/22 pyridostigmine bromide 60 mg tablet 30 mg PO DIRECTED #90 tabs 10/31/21 12/15/22 gabapentin 300 mg capsule 300 mg PO QHS #90 caps 04/15/22 12/15/22 hydroxyzine HCl 25 mg tablet See Rx Instructions PO QID PRN 05/26/22 12/15/22 tremor #30 tabs finasteride 5 mg tablet 5 mg PO DAILY 06/10/22 12/15/22 gabapentin 600 mg tablet See Rx Instructions .Route 10/07/22 12/15/22 .COMPLEX #270 tabs tamsulosin 0.4 mg capsule 0.8 mg PO DAILY #180 caps 10/13/22 12/15/22 lisinopril 5 mg tablet 10 mg PO DAILY 11/25/22 12/15/22 Previous Rx's Medication Instructions Recorded pyridostigmine bromide 60 mg tablet 30 mg PO DIRECTED #90 tabs 10/31/21 gabapentin 300 mg capsule 300 mg PO QHS #90 caps 04/15/22 hydroxyzine HCl 25 mg tablet See Rx Instructions PO QID PRN 05/26/22 tremor #30 tabs gabapentin 600 mg tablet See Rx Instructions .Route 10/07/22 .COMPLEX #270 tabs tamsulosin 0.4 mg capsule 0.8 mg PO DAILY #180 caps 10/13/22 Allergies Allergy/AdvReac Type Severity Reaction Status Date / Time Penicillins Allergy Intermediate hands and Verified 12/15/22 00:45 feet swell General Stated Complaint: Fall/Non TraumaCriteria NEHA: 3 Review of Systems Narrative: Review of Systems Constitutional: Falls, syncope Eyes: negative ENT: negative Cardiovascular: negative Respiratory: negative Gastrointestinal: negative : negative Musculoskeletal: negative Skin: negative Neurologic: negative Psych: negative PFSH All Active Problems (Updated 12/15/22 @ 02:10 by Jimenez Stone MD) Dyspnea (Acute) Adenoma of colon (Acute) Parkinsonism (Chronic) Tardive dyskinesia (Chronic) Memory loss (Chronic) Screening for colon cancer (Acute) Suicidal ideation (Acute) Tubular adenoma of colon (Acute) Hyperplastic colon polyp (Acute) Serrated adenoma of colon (Acute) Urinary incontinence (Acute) Hypertension (Chronic) Monoclonal gammopathy (Acute) Dementia (Chronic) Tremor (Acute) Solitary thyroid nodule (Acute) Incomplete bladder emptying (Acute) Parkinson's plus syndrome (Acute) Acute dehydration (Acute) Fall (Acute) Medical History Ankle fracture, right BPH (benign prostatic hyperplasia) Cognitive impairment 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 denies this Peripheral neuropathy Thyroid nodule UTI (urinary tract infection) (09/13/14) Surgical History ankle H/O surgical procedure a. appendectomy b. cholecystectomy c. resection of benign tumor right lung History of colonoscopy (~11/2021) History of lung surgery Hx of cholecystectomy Family History Other Stroke Social History Smoking/Tobacco Use Status: Former Tobacco Use Quit Date: 04/13/79 Smoking risk assessment performed?: Yes Alcohol Intake: never Drug use: Never Substance use type: does not use Household members: spouse What is your relationship status?: Panel score (0-1 are the most socially isolated patients): 1 Additional Social history: Unable to assess privatley Per pt. states he was in recently in a care bed 11/15/21, states he has been struggling because he just lost a brother, and per pt. they needed a break from eachother. Per pt. states he no longer has thoughts of harming himself or others. Exam Narrative Exam Narrative: Physical Examination General: alert, awake, cooperative, resting comfortably, no acute distress HEENT: normocephalic, atraumatic; PERRL, EOM intact, conjunctiva normal; no nasal discharge; moist mucous membranes, oral and pharyngeal mucosa normal, tolerating secretions Neck: supple, trachea midline; full ROM Chest: normal to inspection Respiratory: normal respiratory effort, speaking in full sentences, clear to auscultation, no wheezing, rales or rhonchi Cardiac: regular rate, regular rhythm, S1S2 intact, no murmurs rubs or gallops GI: abdomen soft, non-tender, non-distended; no palpable mass or hepatosplenomegaly Skin: no lesions, rashes or trauma appreciated Neuro: AAOx3, normal speech, moving all extremities Extremities: Moving all extremities, no signs of trauma, pelvis stable Psych: Appropriate mood and affect Course Vital Signs Vital signs: Vital Signs Temperature 36.6 C 12/15/22 00:34 Pulse 65 12/15/22 00:34 Respiratory Rate 16 12/15/22 00:34 Pulse Oximetry 98 12/15/22 00:34 Temperature 36.6 C 12/15/22 00:34 Pulse 65 12/15/22 00:34 Respiratory Rate 16 09/04/23 00:34 Pulse Oximetry 98 12/15/22 00:34 Oxygen Delivery Method Room Air 12/15/22 00:34 Oxygen Flow Rate 0 12/15/22 00:34 Pain Level 8 12/15/22 00:34
[2022-12-15 00:52] LABS: Abs Immature Grans 0.02 10^3/uL (0.0-0.06); Absolute Basophil Count 0.03 10^3/uL (0.0-0.2); Absolute Eosinophil Count 0.07 10^3/uL (0.0-0.7); Absolute Lymphocyte Count 1.07 10^3/uL (1.2-3.4); Absolute Neutrophil Count 4.46 10^3/uL (1.2-6.7); Basophils % 0.5; Eosinophils % 1.2; HCT 33.6 % (40.0-50.0); HGB 11.3 g/dL (13.5-17.5); Immature Grans % 0.3; Lymphocytes % 17.7; MCH 31.9 pg (27.0-33.0); MCHC 33.6 % (32.0-36.0); MCV 95 fL (80-95); MPV 9.4 fL (8.0-11.0); Monocytes % 6.6; Neutrophils % 73.7; Platelet Count 221 10^3/uL (130-400); RBC 3.54 10^6/uL (4.36-5.78); RDW 12.9 % (11.8-14.1); RDW-SD 44.4 fL; WBC 6.05 10^3/uL (4.4-10.8)
[2022-12-15 01:17] LABS: Prothrombin Time 9.9 sec (9.3-11.0)
[2022-12-15 01:22] LABS: ALT 16 U/L (16-63); AST 12 U/L (15-37); Albumin 3.6 g/dL (3.4-5.0); Alkaline Phosphatase 69 U/L (46-116); Anion Gap 8.3 mmol/L (3-11); BUN 21 mg/dL (7-18); Bilirubin, Total 0.5 mg/dL (0.2-1.0); CO2 29.7 mmol/L (21.0-32.0); CREATININE 1.4 mg/dL (0.70-1.30); Chloride 101 mmol/L (98-107); Creatine Kinase 64 U/L (39-308); Estimated GFR 50.49 (mL/min/1.73m2); Glucose 116 mg/dL (74-106); Magnesium 2.1 mg/dL (1.8-2.4); Potassium 3.9 mmol/L (3.5-5.1); Sodium 139 mmol/L (136-145); TSH (W/Ref FT4) 3.31 uIU/mL (0.36-3.74); Total Protein 8.4 g/dL (6.4-8.2)
[2022-12-15 01:25] LABS: Troponin I < 50 ng/L (<or=60)
--- NOTE | 2022-12-15 02:02 | DI.VRAD_ITS ---
PROCEDURE INFORMATION: Exam: XR Pelvis Exam date and time: 12/15/2022 1:09 AM Age: 82 years old Clinical indication: Other: Fall from standing TECHNIQUE: Imaging protocol: Radiologic exam of the pelvis. Views: 1 or 2 view. COMPARISON: CT CHEST/ABD/PEL W 08/30/2022 11:54 AM FINDINGS: Bones/joints: No acute fracture. The joints maintain anatomic alignment. Soft tissues: There is a 15 mm oblong density with circumferential calcification overlying the left iliac wing that likely represents an injection granuloma in the soft tissues of the gluteal region. IMPRESSION: No acute findings. Dictated and Authenticated by: Baron Barakat MD. Ordering:STACEY Gaona MD
--- NOTE | 2022-12-15 02:03 | DI.VRAD_ITS ---
PROCEDURE INFORMATION: Exam: CT Head Without Contrast Exam date and time: 12/15/2022 1:03 AM Age: 82 years old Clinical indication: Syncope and collapse; Other: Fall TECHNIQUE: Imaging protocol: Computed tomography of the head without contrast. COMPARISON: MR BRAIN WO 09/15/2022 10:06 AM FINDINGS: Brain: No acute intracranial hemorrhage, mass-effect, midline shift, or extra-axial collection is seen. There is patchy white matter hypoattenuation, nonspecific but commonly seen as a chronic sequela of small vessel ischemic disease. There is a small focus of fluid density in the basal ganglia on the left on image 27 of series 3 with an appearance suggesting a prominent perivascular space or an old lacunar infarct, also present on the comparison MRI exam from September 15, 2022. The salcido white matter differentiation appears preserved. There is symmetric parenchymal volume loss. Cerebral ventricles: The ventricular system and basilar cisterns appear prominent but appropriate in size and configuration given the degree of parenchymal volume loss. Paranasal sinuses: There is patchy mucoperiosteal thickening in the paranasal sinuses but no air-fluid levels. Mastoid air cells: The mastoid air cells appear well-aerated. Auditory system: The middle ear cavities appear clear. Soft tissue density material within the right external auditory canal probably represents cerumen; however, direct inspection is recommended for definitive evaluation. Orbital cavities: The globes and intraorbital structures appear grossly intact. Bones/joints: The bony calvarium appears intact. No depressed skull fracture is seen. Soft tissues: No gross focal scalp hematoma is seen. IMPRESSION: No acute intracranial hemorrhage or depressed skull fracture. PROCEDURE INFORMATION: Exam: CT Cervical Spine Without Contrast Exam date and time: 12/15/2022 1:03 AM Age: 82 years old Clinical indication: Syncope and collapse; Other: Fall TECHNIQUE: Imaging protocol: Computed tomography of the cervical spine without contrast. COMPARISON: MR BRAIN WO 09/15/2022 10:06 AM FINDINGS: Bones/joints: No acute cervical fracture or malalignment is seen. C2-C3: Disc height preserved. Small broad-based posterior disc bulge with posterior osteophytic ridging. Moderate-severe left-sided facet arthrosis. No significant cervical stenosis. Mild bilateral foraminal narrowing. C3-C4: Mild loss of disc height. Posterior osteophytic ridging with bilateral uncovertebral hypertrophy. Moderate-severe right-sided facet arthrosis. No significant cervical stenosis. Moderate bilateral foraminal narrowing. C4-C5: Disc height preserved. Bulky anterior osteophytes. Small broad-based posterior disc bulge with osteophytic ridging and uncovertebral hypertrophy on the right. No significant cervical stenosis. Mild bilateral foraminal narrowing. C5-C6: Loss of disc height with endplate irregularity, bulky anterior osteophytes, and prominent posterior osteophytic ridging with bilateral uncovertebral hypertrophy. No significant cervical stenosis. Moderate right and moderate-severe left-sided foraminal narrowing. C6-C7: Loss of disc height with anterior osteophyte formation, posterior osteophytic ridging, and bilateral uncovertebral hypertrophy. No significant cervical stenosis. No significant right-sided foraminal narrowing. Mild left-sided foraminal narrowing. C7-T1: Disc height relatively preserved. Small anterior osteophytes. Moderate bilateral facet arthrosis. No significant cervical stenosis. No significant foraminal narrowing. Dental: There is a large dental cavity almost completely destroying the anterior right mandibular molar. There is associated periapical lucency suspicious for a periapical dental abscess. Thyroid: The thyroid gland appears normal in size. Lungs: The lung apices appear clear. Soft tissues: Within the limits of the exam, no gross soft tissue fluid collection is seen in the neck. IMPRESSION: 1. No acute cervical fracture or malalignment is seen. 2. Large dental cavity almost completely destroying the anterior right mandibular molar with associated periapical lucency suspicious for a periapical dental abscess. Follow-up with a dentist is recommended. Dictated and Authenticated by: Trenton Chavez MD. Ordering:STACEY Gaona MD
--- NOTE | 2022-12-15 02:10 | DI.VRAD_ITS ---
PROCEDURE INFORMATION: Exam: XR Chest Exam date and time: 12/15/2022 1:12 AM Age: 82 years old Clinical indication: Other: Syncope TECHNIQUE: Imaging protocol: Radiologic exam of the chest. Views: 2 views. COMPARISON: CT CHEST/ABD/PEL W 08/30/2022 11:54 AM FINDINGS: Tubes, catheters and devices: EKG monitoring leads overlie the thoracic wall. Lungs: Pulmonary hyperinflation consistent with COPD. There is no pulmonary consolidation. Pleural spaces: No pleural effusion or pneumothorax. Heart/Mediastinum: Normal in size. Bones/joints: No acute fracture. Calcification of the anterior longitudinal ligament. IMPRESSION: 1. Pulmonary hyperexpansion consistent with COPD. 2. No acute findings. Dictated and Authenticated by: Baron Barakat MD. Ordering:STACEY Gaona MD
[2022-12-15 02:20] VITALS: BP 117/63; PULSE 72; RESP 16; O2SAT 98
--- NOTE | 2022-12-15 07:14 | NUR.NOTE ---
Nursing Note: Accessed pt chart for training of new personnel.
== END 2022-12-15 02:21 | disposition home or self-care (01) ==
PROVIDERS: Emergency Provider Emergency Medicine; PCP Family Medicine
DX: R55 Syncope and collapse (principal); E86.0 Dehydration; I10 Essential (primary) hypertension; G20 Parkinson's disease; F02.80 Dementia in other diseases classified elsewhere, unspecified severity, without behavioral disturbance, psychotic disturbance, mood disturbance, and anxiety; G24.01 Drug induced subacute dyskinesia; Z91.81 History of falling
CPT/HCPCS: 80053; 82550; 93005; 99284; 70450; 71046; 72125; 72170; 83735; 84443; 84484; 85025; 85610; 85730; 93010

== ENCOUNTER → 2023-01-06 14:21 | Outpatient (BNVA) | payer MEDICARE, SELFPAY | PROVIDERS: PCP Family Medicine; Referring Provider Family Medicine; Visit Provider Nurse Practitioner Gerontology | DX: R33.9 Retention of urine, unspecified (principal); N40.1 Benign prostatic hyperplasia with lower urinary tract symptoms; N13.8 Other obstructive and reflux uropathy; I10 Essential (primary) hypertension | CPT/HCPCS: 51798; 99213 ==

== ENCOUNTER 2023-01-19 05:01 | Outpatient (CLI) | payer MEDICARE, SELFPAY ==
[2023-01-19 16:53] LABS: Abs Immature Grans 0.01 10^3/uL (0.0-0.06); Absolute Basophil Count 0.03 10^3/uL (0.0-0.2); Absolute Eosinophil Count 0.04 10^3/uL (0.0-0.7); Absolute Lymphocyte Count 1.17 10^3/uL (1.2-3.4); Absolute Monocyte Count 0.33 10^3/uL (0.1-0.8); Absolute Neutrophil Count 3.24 10^3/uL (1.2-6.7); Basophils % 0.6; Eosinophils % 0.8; HCT 35.5 % (40.0-50.0); Immature Grans % 0.2; Lymphocytes % 24.3; MCH 32.3 pg (27.0-33.0); MCHC 33.8 % (32.0-36.0); MCV 96 fL (80-95); MPV 9.5 fL (8.0-11.0); Monocytes % 6.8; Neutrophils % 67.3; Platelet Count 250 10^3/uL (130-400); RBC 3.71 10^6/uL (4.36-5.78); RDW 12.9 % (11.8-14.1); RDW-SD 44.5 fL; WBC 4.82 10^3/uL (4.4-10.8)
[2023-01-19 18:11] LABS: ALT 18 U/L (16-63); AST 16 U/L (15-37); Alkaline Phosphatase 74 U/L (46-116); Anion Gap 7.9 mmol/L (3-11); BUN 15 mg/dL (7-18); Bilirubin, Total 0.5 mg/dL (0.2-1.0); CO2 30.1 mmol/L (21.0-32.0); CREATININE 1.2 mg/dL (0.70-1.30); Calcium 10.1 mg/dL (8.5-10.1); Chloride 101 mmol/L (98-107); Estimated GFR 60.75 (mL/min/1.73m2); Glucose 90 mg/dL (74-106); Potassium 4.1 mmol/L (3.5-5.1); Sodium 139 mmol/L (136-145); Total Protein 8.9 g/dL (6.4-8.2)
[2023-01-21 09:22] LABS: IgA 56 mg/dL (85-499); IgG 669 mg/dL (610-1616); IgM 2734 mg/dL (35-242); Kappa Free Light Chain 5.05 mg/dL (0.33-1.94); Lambda Free Light Chain 18.06 mg/dL (0.57-2.63)
[2023-01-21 14:59] LABS: Albumin 50.2 % (55.8-66.1); Albumin g/dL 4.6 g/dL (3.6-5.2); Comment (See Note); Monoclonal Spike 21.3 % (None Seen); Monoclonal Spike g/dL 1.9 g/dL (None Seen); Total Protein 9.1 g/dL (6.3-8.2)
== END 2023-01-19 05:02 | disposition home or self-care (01) ==
LOC: LBO 05:01
PROVIDERS: PCP Family Medicine; Visit Provider Internal Medicine Hematology & Oncology
DX: D47.2 Monoclonal gammopathy (principal)
CPT/HCPCS: 36415; 80053; 82784; 83883; 84165; 85025

== ENCOUNTER → 2023-04-07 14:19 | Outpatient (BNVA) | payer MEDICARE, SELFPAY | PROVIDERS: PCP Family Medicine; Referring Provider Family Medicine; Visit Provider Urology | DX: R33.8 Other retention of urine (principal) | CPT/HCPCS: 51798; 99214 ==

== ENCOUNTER → 2023-07-30 08:40 | Outpatient (BNVA) | payer MEDICARE, SELFPAY | PROVIDERS: PCP Family Medicine; Referring Provider Family Medicine; Visit Provider Nurse Practitioner Adult Health | DX: R25.1 Tremor, unspecified (principal) | CPT/HCPCS: 99215 ==

== ENCOUNTER 2023-08-07 15:21 | Outpatient (REF) | payer MEDICARE, SELFPAY ==
[2023-08-07 19:43] LABS: HCT 34.7 % (40.0-50.0); MCH 32.5 pg (27.0-33.0); MCHC 34.6 % (32.0-36.0); MCV 94 fL (80-95); MPV 10.9 fL (8.0-11.0); Platelet Count 213 10^3/uL (130-400); RBC 3.69 10^6/uL (4.36-5.78); RDW 12.7 % (11.8-14.1); RDW-SD 43.8 fL; WBC 4.02 10^3/uL (4.4-10.8)
[2023-08-07 20:15] LABS: ALT 18 U/L (16-63); AST 13 U/L (15-37); Albumin 3.8 g/dL (3.4-5.0); Alkaline Phosphatase 84 U/L (46-116); Anion Gap 9.2 mmol/L (3-11); BUN 15 mg/dL (7-18); Bilirubin, Total 0.5 mg/dL (0.2-1.0); CO2 27.8 mmol/L (21.0-32.0); CREATININE 1.1 mg/dL (0.70-1.30); Calcium 9.7 mg/dL (8.5-10.1); Chloride 105 mmol/L (98-107); Estimated GFR 67.02 (mL/min/1.73m2); Glucose 118 mg/dL (74-106); Potassium 4.3 mmol/L (3.5-5.1); Sodium 142 mmol/L (136-145); Total Protein 8.1 g/dL (6.4-8.2)
== END 2023-08-07 15:22 | disposition home or self-care (01) ==
LOC: NCHCN 15:21
PROVIDERS: PCP Family Medicine; Visit Provider Family Medicine
DX: I10 Essential (primary) hypertension (principal)
CPT/HCPCS: 80053; 85027

== ENCOUNTER → 2023-09-29 14:18 | Outpatient (BNVA) | payer MEDICARE, SELFPAY | PROVIDERS: PCP Family Medicine; Referring Provider Family Medicine; Visit Provider Nurse Practitioner Gerontology | DX: R33.8 Other retention of urine (principal); N40.1 Benign prostatic hyperplasia with lower urinary tract symptoms; N13.8 Other obstructive and reflux uropathy | CPT/HCPCS: 51798; 99213 ==

== ENCOUNTER 2023-10-01 11:59 | Emergency (ER) | payer MEDICARE, SELFPAY ==
[2023-10-01] VITALS (19 sets, daily range): BP systolic 105–132; BP diastolic 54–81; PULSE 57–72; RESP 14–18; O2SAT 94–99
--- NOTE | 2023-10-01 13:00 | DI.RAD_ITS ---
Exam(s) XR TIB/FIB LT EXAM: XR TIB/FIB LT CLINICAL HISTORY: pain s/p fall. TECHNIQUE: 2D digital imaging was performed. Two views. COMPARISON: CR XR FEMUR LT from 10/01/2023 FINDINGS: BONES: No acute fracture is present. No bony destructive lesion is seen. Visualized portion of knee a nd ankle joints are unremarkable. Heel spurs. SOFT TISSUE: Vascular calcifications. IMPRESSION: No acute abnormality. DATA REPOSITORY: RADIATION DOSE DELIVERED:
--- NOTE | 2023-10-01 13:00 | DI.RAD_ITS ---
Exam(s) XR KNEE LT 3V AP,LAT,KINGA EXAM: XR KNEE LT 3V AP,LAT,KINGA CLINICAL HISTORY: pain s/p fall. TECHNIQUE: 2D digital imaging was performed. Three views. COMPARISON: CR LEFT KNEE 3 VIEW COMPLETE from 09/29/2012 FINDINGS: Limited exam due to artifact from mat. BONES: No acute fracture is present. No bony destructive lesion is seen. JOINTS: The knee is normally aligned. No joint effusion is seen. Joint spaces are maintained. SOFT TISSUE: Vascular calcifications. IMPRESSION: No acute abnormality DATA REPOSITORY: RADIATION DOSE DELIVERED:
--- NOTE | 2023-10-01 13:00 | DI.RAD_ITS ---
Exam(s) XR FEMUR LT EXAM: XR FEMUR LT CLINICAL HISTORY: pain s/p fall. TECHNIQUE: 2D digital imaging was performed. Three views. COMPARISON: None. FINDINGS: BONES: Nondisplaced fracture through greater trochanter no additional fractures are identified no bon y destructive lesion is seen. JOINTS: No dislocation present. Hip joint space is maintained. Knee is unremarkable as visualized. SOFT TISSUE: Vascular calcifications. IMPRESSION: Nondisplaced fracture at the greater trochanter. DATA REPOSITORY: RADIATION DOSE DELIVERED:
--- NOTE | 2023-10-01 13:21 | W.ED.GENAD ---
Discharge Plan Disposition Patient Disposition: Home Condition: Stable Discharge Details Clinical Impression: Closed fracture of greater trochanter of left femur, Contusion of left tibia, Contusion of knee, left Primary Care Provider: Maria R Woods ED Provider: Memo Sorto Home Meds and New Rx's Prescriptions: Continued lisinopril 5 mg tablet 10 mg PO DAILY simvastatin 40 mg tablet 40 mg PO QHS melatonin 3 mg capsule 3 mg PO HS PRN cholecalciferol (vitamin D3) 50 mcg (2,000 unit) capsule 50 mcg PO DAILY tamsulosin 0.4 mg capsule 0.8 mg PO DAILY Qty: 180 3RF finasteride 5 mg tablet 5 mg PO DAILY Qty: 90 3RF pyridostigmine bromide 60 mg tablet 30 mg PO DIRECTED Qty: 90 3RF Rx Instructions: Take 30mg daily in the am. Ok to take an extra 30mg q6hr prn dizziness (max 120mg daily). gabapentin 600 mg tablet See Rx Instructions .ROUTE .COMPLEX Qty: 270 3RF Dose Instruction: TAKE 1 TABLET BY MOUTH 3 TIMES DAILY Rx Instructions: TAKE 1 TABLET BY MOUTH 3 TIMES DAILY gabapentin 300 mg capsule 300 mg PO QHS Qty: 90 3RF Rx Instructions: Take in addition to 600 mg evening dose for a total of 900 mg escitalopram oxalate 10 mg tablet 20 mg PO DAILY lamotrigine [Lamictal] 100 mg tablet 150 mg PO BID omeprazole 40 MG capsule,delayed release(DR/EC) 40 mg PO DAILY Discharge Instructions Additional Instructions: Follow-up with orthopedics, they should contact you with an appointment. You can take 1000 mg of acetaminophen every 6 hours as needed, do not exceed 3000mg in a 24 hour period do not move your leg past midline If you feel more ill or have severe worsening pain return to the emergency department for reevaluation Referrals: Daljit Humphries MD [ [facility] STAFF PHYSICIAN] - [facility] General Date/Time Provider Initiated Documentation: 10/01/23 12:04. Limitations to Documentation: no limitations. Information obtained by: patient. History of Present Illness 83 year old M presents to the emergency department with the chief complaint of left knee pain, described as moderate, Quality is described as aching, Patient started experiencing this hour(s) (2) and it has been constant. Rest improves symptom(s), Movement worsens symptoms . Patient notes no other symptoms.. Patient did receive the following treatments prior to arrival, none Related Data Home Medications Medication Instructions Recorded Confirmed omeprazole 40 mg capsule,delayed 40 mg PO DAILY 09/09/12 10/01/23 release simvastatin 40 mg tablet 40 mg PO QHS 03/27/20 10/01/23 pyridostigmine bromide 60 mg tablet 30 mg (1/2 x 60 mg) PO DIRECTED 10/31/21 10/01/23 #90 tabs gabapentin 600 mg tablet See Rx Instructions .Route 10/07/22 10/01/23 .COMPLEX #270 tabs lisinopril 5 mg tablet 10 mg PO DAILY 11/25/22 10/01/23 gabapentin 300 mg capsule 300 mg PO QHS #90 caps 01/13/23 10/01/23 finasteride 5 mg tablet 5 mg PO DAILY #90 tabs 04/07/23 10/01/23 tamsulosin 0.4 mg capsule 0.8 mg (2 x 0.4 mg) PO DAILY #180 04/07/23 10/01/23 caps escitalopram oxalate 10 mg tablet 20 mg PO DAILY 08/11/23 10/01/23 lamotrigine 100 mg tablet 150 mg PO BID 08/11/23 10/01/23 (Lamictal) cholecalciferol (vitamin D3) 50 50 mcg PO DAILY 09/15/23 10/01/23 mcg (2,000 unit) capsule melatonin 3 mg capsule 3 mg PO HS PRN 09/15/23 10/01/23 Previous Rx's Medication Instructions Recorded pyridostigmine bromide 60 mg tablet 30 mg (1/2 x 60 mg) PO DIRECTED 10/31/21 #90 tabs gabapentin 600 mg tablet See Rx Instructions .Route 10/07/22 .COMPLEX #270 tabs gabapentin 300 mg capsule 300 mg PO QHS #90 caps 01/13/23 finasteride 5 mg tablet 5 mg PO DAILY #90 tabs 04/07/23 tamsulosin 0.4 mg capsule 0.8 mg (2 x 0.4 mg) PO DAILY #180 04/07/23 caps Allergies Allergy/AdvReac Type Severity Reaction Status Date / Time Penicillins Allergy Intermediate hands and Verified 10/01/23 12:04 feet swell General Stated Complaint: Orthopedic NEHA: 4 Review of Systems All systems reviewed & are unremarkable except as noted in HPI and below Constitutional Constitutional: Denies chills, Denies fever(s) and Denies weakness Cardiovascular Cardiovascular: Denies chest pain and Denies dyspnea Respiratory Respiratory: Denies cough and Denies dyspnea Gastrointestinal Gastrointestinal: Denies abdominal pain, Denies nausea and Denies vomiting Musculoskeletal Musculoskeletal: Denies joint swelling Neurologic Neurologic: Denies weakness Exam Const General: no acute distress Orientation: alert [facility] Head: normal to inspection Ears: external ears normal General nose exam: external nose normal Mouth: moist mucous membranes Eyes General: appearance normal, both eyes and all related structures Neck Neck: normal visual inspection Resp Effort & Inspection: normal respiratory effort and able to speak in complete sentences Cardio Rate: regular rate Skin General skin exam: no rashes or lesions noted Neuro General: patient alert and patient oriented x3 Extrem General: normal to inspection, full ROM and capillary refill normal Psych Mental Status: mental status grossly normal Course Vital Signs Vital signs: Vital Signs Pulse 72 10/01/23 12:01 Respiratory Rate 18 10/01/23 12:01 Blood Pressure 105/56 L 10/01/23 12:01 Pulse Oximetry 94 10/01/23 12:01 Pulse 65 10/01/23 13:06 Respiratory Rate 18 10/01/23 13:06 Respiratory Effort Normal, Non-Labored 10/01/23 12:03 Blood Pressure 132/62 10/01/23 13:06 Blood Pressure Position Sitting 10/01/23 12:01 Pulse Oximetry 97 10/01/23 13:06 Oxygen Delivery Method Room Air 10/01/23 13:06 Oxygen Flow Rate 0 10/01/23 13:06 Pain Level 7 10/01/23 12:01 Medical Decision Making 83-year-old male with a history of Parkinson's, 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 Denies any preceding symptoms such as lightheadedness or dizziness or chest pain. He has pain in the left knee, left lateral thigh and also the left mid tibia. He denies any head pain, neck pain, chest pain, abdominal pain. He has full range of motion of his left hip left knee and left ankle and foot. He has intact sensation and pulses. He does have tenderness in the left lateral hip, the lateral left knee, and mid anterior tibia without palpable or visible deformities. Suspect contusion but will obtain x-rays to exclude fracture X-rays show nondisplaced left greater trochanteric fracture. Patient is stable discussed case with orthopedics. Pt stable, ortho requesting CT which I have ordered CT done reviewed by orthopedics and no change in plan do not feel requires surgical intervention at this time. Fortunately PT not available at this current time, patient was able to ambulate well with his walker with nursing. He is on oriented and understands all instructions given to him including not moving his leg past midline. He is comfortable with discharge as is his . They will follow-up with orthopedics and return precautions given Differential Diagnosis Differential Diagnosis: Fracture, contusion Imaging Data Radiologic Study: Attestation: I personally reviewed and interpreted this imaging study as follows: Imaging: X-Ray Radiologist's impression: EXAM: XR FEMUR LT CLINICAL HISTORY: pain s/p fall. TECHNIQUE: 2D digital imaging was performed. Three views. COMPARISON: None. FINDINGS: BONES: Nondisplaced fracture through greater trochanter no additional fractures are identified no bony destructive lesion is seen. JOINTS: No dislocation present. Hip joint space is maintained. Knee is unremarkable as visualized. SOFT TISSUE: Vascular calcifications. IMPRESSION: Nondisplaced fracture at the greater trochanter. Radiologic Study #2: Attestation: I personally reviewed and interpreted this imaging study as follows: Imaging: X-Ray Radiologist's impression: EXAM: XR KNEE LT 3V AP,LAT,KINGA CLINICAL HISTORY: pain s/p fall. TECHNIQUE: 2D digital imaging was performed. Three views. COMPARISON: CR LEFT KNEE 3 VIEW COMPLETE from 09/29/2012 FINDINGS: Limited exam due to artifact from mat. BONES: No acute fracture is present. No bony destructive lesion is seen. JOINTS: The knee is normally aligned. No joint effusion is seen. Joint spaces are maintained. SOFT TISSUE: Vascular calcifications. IMPRESSION: No acute abnormality Radiologic Study #3: Attestation: I personally reviewed and interpreted this imaging study as follows: Imaging: X-Ray Radiologist's impression: Exam(s) XR TIB/FIB LT EXAM: XR TIB/FIB LT CLINICAL HISTORY: pain s/p fall. TECHNIQUE: 2D digital imaging was performed. Two views. COMPARISON: CR XR FEMUR LT from 10/01/2023 FINDINGS: BONES: No acute fracture is present. No bony destructive lesion is seen. Visualized portion of knee and ankle joints are unremarkable. Heel spurs. SOFT TISSUE: Vascular calcifications. IMPRESSION: No acute abnormality. Radiologic Study #4: Attestation: I personally reviewed and interpreted this imaging study as follows: Imaging: CT Scan Radiologist's impression: IMPRESSION: Mildly displaced fracture of the left greater trochanter. Quality:SDOH Health Related Social Needs: No Data to Display PFSH All Active Problems (Updated 10/01/23 @ 16:06 by Memo Sorto MD) Contusion of knee, left (Acute) Contusion of left tibia (Acute) Closed fracture of greater trochanter of left femur (Acute) Fracture of greater trochanter of left femur (Acute) Skin lesion of face (Acute) Disorder of the skin and subcutaneous tissue, unspecified (Acute) Parkinson's plus syndrome (Acute) Incomplete bladder emptying (Acute) Solitary thyroid nodule (Acute) Tremor (Acute) Dementia (Chronic) Monoclonal gammopathy (Acute) Hypertension (Chronic) Urinary incontinence (Acute) Serrated adenoma of colon (Acute) Hyperplastic colon polyp (Acute) Tubular adenoma of colon (Acute) Suicidal ideation (Acute) Screening for colon cancer (Acute) Memory loss (Chronic) Tardive dyskinesia (Chronic) Parkinsonism (Chronic) Adenoma of colon (Acute) Dyspnea (Acute) Medical History (Updated 10/01/23 @ 16:06 by Memo Sorto MD) Incoordination Non-toxic uninodular goiter Prostate nodule Hammer toe of left foot GERD (gastroesophageal reflux disease) Gait instability uses cane to ambualte 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 denies this Essential tremor Peripheral neuropathy Inguinal hernia Dyspepsia Lipoma Thyroid nodule Hyperlipidemia BPH (benign prostatic hyperplasia) Hyponatremia Neutropenia Ankle fracture, right UTI (urinary tract infection) (09/13/14) Depression Surgical History (Updated 08/11/23 @ 11:12 by Rosalva Armenta RN) H/O removal of testicle Right 6 months of age History of appendectomy History of colonoscopy (~11/2021) History of lung surgery biopsy Hx of cholecystectomy ankle H/O surgical procedure a. appendectomy b. cholecystectomy c. resection of benign tumor right lung Family History (Updated 08/11/23 @ 11:14 by Rosalva Armenta RN) Father , 65 FH: premature coronary heart disease Heart failure Heart attack Mother Liver failure Acute hepatitis Sister No problems noted. Brother No problems noted. Brother Stroke Social History Smoking/Tobacco Use Status: Former Tobacco Use Quit Date: 04/13/79 Smoking risk assessment performed?: Yes Alcohol Intake: never Drug use: Never Substance use type: does not use Household members: spouse What is your relationship status?: Panel score (0-1 are the most socially isolated patients): 1
[2023-10-01] MEDS: Acetaminophen 500 MG TAB 1000 MG PO (13:31)
--- NOTE | 2023-10-01 14:30 | DI.CT_ITS ---
Exam(s) CT PELVIC WO EXAM: CT PELVIC WO CLINICAL HISTORY: left hip fracture. TECHNIQUE: Imaging Protocol: Axial computed tomography images with coronal and sagittal reformatted images were created and reviewed. CONTRAST MATERIAL: Oral: / no COMPARISON: No exams were available for comparison FINDINGS: Bladder: Distended. Mild diffuse wall thickening. Bowel: No obstruction or bowel wall thickening. Static yellow cysts of the descending and sigmoid col on. Peritoneal cavity: No ascites, collection or mesenteric inflammatory response. Reproductive: Prostate markedly enlarged, impressing on the base of the bladder. Bones: Fracture seen extending mainly transversely through the left greater trochanter. There are f ew small comminuted fragments. There is mild displacement of the larger fracture fragment posteriorl y and medial, with separation of approximately 10 millimeters. No additional fractures are identifie d. There are degenerative changes in the lower lumbar spine. The hip joints are unremarkable. Soft tissues: Mild hematoma posterior to the left greater trochanter. Fatty containing bilateral h eart hernias, left greater than right. IMPRESSION: Mildly displaced fracture of the left greater trochanter. RADIATION DOSE DELIVERED: 608.95mGy.cmTotal DLP DATA REPOSITORY: All CT scans at this facility are submitted to the National Radiology Data Registry (NRDR) Dose Index Registry (DIR) with the [employer] (A[employer]). RADIATION OPTIMIZATION: All CT scans at this facility use at least one of these dose optimization te chniques: automated exposure control; mA and/or kV adjustment per patient size (includes targeted exa ms where dose is matched to clinical indication); or iterative reconstruction.
--- NOTE | 2023-10-01 14:36 | W.ORTHOCONSU ---
Date of service: 10/01/23 Time of Service: 14:36 Assessment and Plan Assessment and plan (1) Fracture of greater trochanter of left femur: Status: Acute Assessment and plan: 83-year-old male with isolated left hip moderately displaced greater trochanteric fracture Presented to the ER status post mechanical fall and found to have a nondisplaced left greater trochanter fracture. Patient has a past medical history that includes Parkinson's, hypertension, GERD, typically ambulates using a wheeled walker. ER was in the process with an ambulation trial. X-ray was reviewed which revealed a nondisplaced avulsion fracture of the greater trochanter. Requested that CT be obtained to determine trochanteric involvement, displacement and rule out intertrochanteric extension. CT done and reviewed showing isolated fracture with moderate avulsion/displacement. Recommend weightbearing as tolerated with a walker, patient already uses a wheeled walker. Physical therapy consult as needed. For 6-8 weeks: Avoid any active hip external rotation or abduction; Avoid passive adduction past neutral. Follow-up outpatient orthopedics in about 2 weeks Discussed with emergency room doctor [facility] All Active Problems (Updated 10/01/23 @ 16:06 by Memo Sorto MD) Contusion of knee, left (Acute) Contusion of left tibia (Acute) Closed fracture of greater trochanter of left femur (Acute) Fracture of greater trochanter of left femur (Acute) Skin lesion of face (Acute) Disorder of the skin and subcutaneous tissue, unspecified (Acute) Parkinson's plus syndrome (Acute) Incomplete bladder emptying (Acute) Solitary thyroid nodule (Acute) Tremor (Acute) Dementia (Chronic) Monoclonal gammopathy (Acute) Hypertension (Chronic) Urinary incontinence (Acute) Serrated adenoma of colon (Acute) Hyperplastic colon polyp (Acute) Tubular adenoma of colon (Acute) Suicidal ideation (Acute) Screening for colon cancer (Acute) Memory loss (Chronic) Tardive dyskinesia (Chronic) Parkinsonism (Chronic) Adenoma of colon (Acute) Dyspnea (Acute) Medical History (Updated 10/01/23 @ 16:06 by Memo Sorto MD) Incoordination Non-toxic uninodular goiter Prostate nodule Hammer toe of left foot GERD (gastroesophageal reflux disease) Gait instability uses cane to ambualte 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 denies this Essential tremor Peripheral neuropathy Inguinal hernia Dyspepsia Lipoma Thyroid nodule Hyperlipidemia BPH (benign prostatic hyperplasia) Hyponatremia Neutropenia Ankle fracture, right UTI (urinary tract infection) (09/13/14) Depression Surgical History (Updated 08/11/23 @ 11:12 by Rosalva Armenta, ODILIA) H/O removal of testicle Right 6 months of age History of appendectomy History of colonoscopy (~11/2021) History of lung surgery biopsy Hx of cholecystectomy ankle H/O surgical procedure a. appendectomy b. cholecystectomy c. resection of benign tumor right lung Family History (Updated 08/11/23 @ 11:14 by Rosalva Armenta RN) Father , 65 FH: premature coronary heart disease Heart failure Heart attack Mother Liver failure Acute hepatitis Sister No problems noted. Brother No problems noted. Brother Stroke Social History Smoking/Tobacco Use Status: Former Tobacco Use Quit Date: 04/13/79 Smoking risk assessment performed?: Yes Alcohol Intake: never Drug use: Never Substance use type: does not use Household members: spouse What is your relationship status?: Panel score (0-1 are the most socially isolated patients): 1 Results Last Vital Signs Pulse 65 10/01/23 13:06 Resp 18 10/01/23 13:06 BP 132/62 10/01/23 13:06 Pulse Ox 97 10/01/23 13:06
== END 2023-10-01 16:25 | disposition home or self-care (01) ==
PROVIDERS: Emergency Provider Emergency Medicine; PCP Family Medicine
DX: S72.112A Displaced fracture of greater trochanter of left femur, initial encounter for closed fracture (principal); G20.A1 Parkinson's disease without dyskinesia, without mention of fluctuations; I10 Essential (primary) hypertension; Z87.891 Personal history of nicotine dependence; W18.39XA Other fall on same level, initial encounter; Y93.01 Activity, walking, marching and hiking; Y92.018 Other place in single-family (private) house as the place of occurrence of the external cause
CPT/HCPCS: 73552; 73562; 99284; 72192; 73590

== ENCOUNTER 2023-10-13 07:48 | Emergency (ER) | payer MEDICARE, SELFPAY ==
[2023-10-13 07:50] VITALS: BP 154/82; PULSE 73; RESP 16; TEMP 36.9; O2SAT 99
--- NOTE | 2023-10-13 08:00 | DI.RAD_ITS ---
Exam(s) XR HIP LT COMPLETE AP PELVIS EXAM: XR HIP LT COMPLETE AP PELVIS CLINICAL HISTORY: left hip pain. TECHNIQUE: 2D digital imaging was performed. COMPARISON: No exams were available for comparison FINDINGS: 3 views There is a fracture of the left hip. There is a triangular fracture fragment measuring 1.4 x 1.0 cm which appears to be the superior aspect of the greater trochanter being avulsed and medially displace d. Lesser trochanter is intact. Cannot exclude adjacent femoral neck fracture. There is no fractur e of the opposite-right hip seen. There is symmetrical mild narrowing of both hip joint spaces. No other pelvic fractures identified. IMPRESSION: Left hip fractures described above. Recommend further study with CT. DATA REPOSITORY: RADIATION DOSE DELIVERED:
[2023-10-13 08:02] VITALS: BP 154/82; PULSE 73; RESP 16; TEMP 36.9; O2SAT 99
--- NOTE | 2023-10-13 08:11 | ED.GENADUL_ITS ---
Discharge Plan Disposition Patient Disposition: Home Condition: Stable Discharge Details Clinical Impression: Closed fracture of greater trochanter of left femur, Pedal edema Primary Care Provider: Maria R Woods ED Provider: Sam Kuo Home Meds and New Rx's Prescriptions: No Action lisinopril 5 mg tablet 10 mg PO DAILY simvastatin 40 mg tablet 40 mg PO QHS melatonin 3 mg capsule 3 mg PO HS PRN cholecalciferol (vitamin D3) 50 mcg (2,000 unit) capsule 50 mcg PO DAILY tamsulosin 0.4 mg capsule 0.8 mg PO DAILY Qty: 180 3RF finasteride 5 mg tablet 5 mg PO DAILY Qty: 90 3RF pyridostigmine bromide 60 mg tablet 30 mg PO DIRECTED Qty: 90 3RF Rx Instructions: Take 30mg daily in the am. Ok to take an extra 30mg q6hr prn dizziness (max 120mg daily). gabapentin 600 mg tablet See Rx Instructions .ROUTE .COMPLEX Qty: 270 3RF Dose Instruction: TAKE 1 TABLET BY MOUTH 3 TIMES DAILY Rx Instructions: TAKE 1 TABLET BY MOUTH 3 TIMES DAILY gabapentin 300 mg capsule 300 mg PO QHS Qty: 90 3RF Rx Instructions: Take in addition to 600 mg evening dose for a total of 900 mg escitalopram oxalate 10 mg tablet 20 mg PO DAILY lamotrigine [Lamictal] 100 mg tablet 150 mg PO BID omeprazole 40 MG capsule,delayed release(DR/EC) 40 mg PO DAILY Discharge Instructions Additional Instructions: keep leg elevated as much as possible wear compression stockings keep ortho follow up appointment HPI General Date/Time Provider Initiated Documentation: 10/13/23 07:56 . Limitations to Documentation: no limitations . Information obtained by: patient . HPI Narrative: 83 y M with PMH of HTN, dementia, recent left greater trochanter fracture presents for evaluation of left foot swelling. he says that he noticed it this morning. he denies any worsened pain. says he is still sore, particularly in the bruised areas. denies any calf pain or swelling. has been taking tyelnol as needed for pain. he is ambulating with a walker and getting around pretty well. he has follow up appointment with ortho tomorrow. Related Data Home Medications Medication Instructions Recorded Confirmed omeprazole 40 mg capsule,delayed 40 mg PO DAILY 09/09/12 10/13/23 release simvastatin 40 mg tablet 40 mg PO QHS 03/27/20 10/13/23 pyridostigmine bromide 60 mg tablet 30 mg (1/2 x 60 mg) PO DIRECTED 10/31/21 10/13/23 #90 tabs gabapentin 600 mg tablet See Rx Instructions .Route 10/07/22 10/13/23 .COMPLEX #270 tabs lisinopril 5 mg tablet 10 mg PO DAILY 11/25/22 10/13/23 gabapentin 300 mg capsule 300 mg PO QHS #90 caps 01/13/23 10/13/23 finasteride 5 mg tablet 5 mg PO DAILY #90 tabs 04/07/23 10/13/23 tamsulosin 0.4 mg capsule 0.8 mg (2 x 0.4 mg) PO DAILY #180 04/07/23 10/13/23 caps escitalopram oxalate 10 mg tablet 20 mg PO DAILY 08/11/23 10/13/23 lamotrigine 100 mg tablet 150 mg PO BID 08/11/23 10/13/23 (Lamictal) cholecalciferol (vitamin D3) 50 50 mcg PO DAILY 09/15/23 10/13/23 mcg (2,000 unit) capsule melatonin 3 mg capsule 3 mg PO HS PRN 09/15/23 10/13/23 Previous Rx's Medication Instructions Recorded pyridostigmine bromide 60 mg tablet 30 mg (1/2 x 60 mg) PO DIRECTED 10/31/21 #90 tabs gabapentin 600 mg tablet See Rx Instructions .Route 10/07/22 .COMPLEX #270 tabs gabapentin 300 mg capsule 300 mg PO QHS #90 caps 01/13/23 finasteride 5 mg tablet 5 mg PO DAILY #90 tabs 04/07/23 tamsulosin 0.4 mg capsule 0.8 mg (2 x 0.4 mg) PO DAILY #180 04/07/23 caps Allergies Allergy/AdvReac Type Severity Reaction Status Date / Time Penicillins Allergy Intermediate hands and Verified 10/13/23 07:57 feet swell General Stated Complaint: GenMedical NEHA: 3 Exam Narrative Exam Narrative: Review of Systems: All systems reviewed & are unremarkable except as noted in HPI and below Well-developed, no acute distress NCAT PERRL, normal conjunctiva RRR Unlabored respiratory effort Nondistended abdomen Mild tenderness on the outside of the left hip, bruising noted throughout the thigh, compartments soft, bruising to the anterior knee without deformity or effusion, calf not swollen, not tender, there is some trace pedal edema no focal neurologic deficits Appropriate mood and affect Course Vital Signs Vital signs: Vital Signs Temperature 36.9 C 10/13/23 07:50 Pulse 73 10/13/23 07:50 Respiratory Rate 16 10/13/23 07:50 Blood Pressure 154/82 H 10/13/23 07:50 Pulse Oximetry 99 10/13/23 07:50 Temperature 36.9 C 10/13/23 08:02 Pulse 73 10/13/23 08:02 Respiratory Rate 16 10/13/23 08:02 Respiratory Effort Normal, Non-Labored 10/13/23 07:59 Blood Pressure 154/82 H 10/13/23 08:02 Pulse Oximetry 99 10/13/23 08:02 Pain Level 7 10/13/23 08:02 Medical Decision Making Emergent evaluation of left foot swelling in the setting of recent left hip fracture. I have a low suspicion for a DVT as the swelling is isolated to the foot, there is no calf swelling, tenderness or warmth. His bruising is improving, he is ambulating with assistance without significant amount of pain. I suspect that the foot swelling is likely secondary to dependent edema from the trauma settling into the foot. No signs of infection. No signs of compartment syndrome. Neurovascularly intact. Repeat x-ray obtained and appears stable from prior x-ray. The patient has orthopedic follow-up appointment tomorrow. Recommended keeping feet elevated when he is not ambulating. Also recommended compression socks to help with some of the trace edema. Quality:SDOH Health Related Social Needs: No Data to Display PFSH All Active Problems Pedal edema (Acute) Contusion of knee, left (Acute) Contusion of left tibia (Acute) Closed fracture of greater trochanter of left femur (Acute) Fracture of greater trochanter of left femur (Acute) Skin lesion of face (Acute) Disorder of the skin and subcutaneous tissue, unspecified (Acute) Parkinson's plus syndrome (Acute) Incomplete bladder emptying (Acute) Solitary thyroid nodule (Acute) Tremor (Acute) Dementia (Chronic) Monoclonal gammopathy (Acute) Hypertension (Chronic) Urinary incontinence (Acute) Serrated adenoma of colon (Acute) Hyperplastic colon polyp (Acute) Tubular adenoma of colon (Acute) Suicidal ideation (Acute) Screening for colon cancer (Acute) Memory loss (Chronic) Tardive dyskinesia (Chronic) Parkinsonism (Chronic) Adenoma of colon (Acute) Dyspnea (Acute) Medical History Incoordination Non-toxic uninodular goiter Prostate nodule Hammer toe of left foot GERD (gastroesophageal reflux disease) Gait instability uses cane to ambualte 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 denies this Essential tremor Peripheral neuropathy Inguinal hernia Dyspepsia Lipoma Thyroid nodule Hyperlipidemia BPH (benign prostatic hyperplasia) Hyponatremia Neutropenia Ankle fracture, right UTI (urinary tract infection) (09/13/14) Depression Surgical History H/O removal of testicle Right 6 months of age History of appendectomy History of colonoscopy (~11/2021) History of lung surgery biopsy Hx of cholecystectomy ankle H/O surgical procedure a. appendectomy b. cholecystectomy c. resection of benign tumor right lung Family History Father , 65 FH: premature coronary heart disease Heart failure Heart attack Mother Liver failure Acute hepatitis Sister No problems noted. Brother No problems noted. Brother Stroke Social History Smoking/Tobacco Use Status: Former Tobacco Use Quit Date: 04/13/79 Smoking risk assessment performed?: Yes Alcohol Intake: never Drug use: Never Substance use type: does not use Household members: spouse What is your relationship status?: Panel score (0-1 are the most socially isolated patients): 1
[2023-10-13 09:12] VITALS: RESP 16
== END 2023-10-13 09:14 | disposition home or self-care (01) ==
PROVIDERS: Emergency Provider Emergency Medicine; PCP Family Medicine
DX: R60.0 Localized edema (principal)
CPT/HCPCS: 99283; 73502; 99282

== ENCOUNTER → 2023-10-14 14:13 | Outpatient (BNVA) | payer MEDICARE, SELFPAY | PROVIDERS: PCP Family Medicine; Referring Provider Family Medicine; Visit Provider Student in an Organized Health Care Education/Training Program | DX: S72.112D Displaced fracture of greater trochanter of left femur, subsequent encounter for closed fracture with routine healing (principal); W19.XXXD Unspecified fall, subsequent encounter | CPT/HCPCS: 99213 ==

== ENCOUNTER 2023-10-21 12:37 | Outpatient (REF) | payer MEDICARE, SELFPAY ==
--- NOTE | 2023-10-21 07:45 | SKI_PTH ---
PATIENT: Diego Cummings LOC: [facility] U#:[id number] AGE/SX: 83/M ROOM: RE10/21/[address]: Marcus Morfin MD : 1940 BED: DIS: 10/21/2023 SPEC #: [id number] RECD: 10/21/23 12:55 STATUS: RADHA REMaria Guadalupe #: [id number] GUCCI: 10/21/23 07:[address]: Marcus Morfin DEPT: Surgical Specimen RECD BY: Erma Valdivia ENTERED: 10/21/23 12:55 SP TYPE: AMBERLY GARCIA DR: Maria R Woods Tissues: 1 - SKIN BIOPSY(SHAVE/PUNCH) 2 - SKIN BIOPSY(SHAVE/PUNCH) Procedures: SKIN LEVEL 4 Comments: [id number]
== END 2023-10-21 12:38 | disposition home or self-care (01) ==
LOC: LBN 12:37
PROVIDERS: PCP Family Medicine; Visit Provider Otolaryngology
DX: L98.9 Disorder of the skin and subcutaneous tissue, unspecified (principal); D22.9 Melanocytic nevi, unspecified; L73.8 Other specified follicular disorders
CPT/HCPCS: 88305

== ENCOUNTER → 2023-11-11 10:54 | Outpatient (BNVA) | payer MEDICARE, SELFPAY | PROVIDERS: PCP Family Medicine; Referring Provider Family Medicine; Visit Provider Nurse Practitioner Adult Health | DX: G63 Polyneuropathy in diseases classified elsewhere (principal); G25.0 Essential tremor; I95.1 Orthostatic hypotension | CPT/HCPCS: 99442 ==

== ENCOUNTER 2023-12-02 15:12 | Outpatient (CLI) | payer MEDICARE, SELFPAY ==
--- NOTE | 2023-12-02 14:00 | DI.RAD_ITS ---
Exam(s) XR HIP LT AP LAT ONLY EXAM: XR HIP LT AP LAT ONLY CLINICAL HISTORY: F/U FRACTURE. TECHNIQUE: 2D digital imaging was performed of the left hip. Two views were obtained. AP and later al views were obtained. COMPARISON: CR XR HIP LT COMPLETE AP PELVIS from 10/13/2023 FINDINGS: BONES: There is again seen a comminuted and displaced left greater trochanteric fracture. No new fra ctures identified. No bony destructive lesion is seen. JOINTS: No dislocation present. SOFT TISSUE: Normal. IMPRESSION: There is again seen a comminuted fracture of the greater trochanter of the left femur. DATA REPOSITORY: RADIATION DOSE DELIVERED:
== END 2023-12-02 15:13 | disposition home or self-care (01) ==
LOC: DIORS 15:12
PROVIDERS: PCP Family Medicine; Visit Provider Student in an Organized Health Care Education/Training Program
DX: S72.112D Displaced fracture of greater trochanter of left femur, subsequent encounter for closed fracture with routine healing; X58.XXXD Exposure to other specified factors, subsequent encounter
CPT/HCPCS: 99213; 73502

== ENCOUNTER 2024-01-21 02:30 | Outpatient (CLI) | payer MEDICARE, SELFPAY ==
[2024-01-21 11:45] LABS: Abs Immature Grans 0.01 10^3/uL (0.0-0.06); Absolute Basophil Count 0.03 10^3/uL (0.0-0.2); Absolute Eosinophil Count 0.06 10^3/uL (0.0-0.7); Absolute Lymphocyte Count 0.68 10^3/uL (1.2-3.4); Absolute Monocyte Count 0.37 10^3/uL (0.1-0.8); Absolute Neutrophil Count 3.78 10^3/uL (1.2-6.7); Basophils % 0.6 %; Eosinophils % 1.2 %; HCT 35.5 % (40.0-50.0); HGB 11.7 g/dL (13.5-17.5); Immature Grans % 0.2 %; Lymphocytes % 13.8 %; MCH 32.2 pg (27.0-33.0); MCV 98 fL (80-95); MPV 9.1 fL (8.0-11.0); Monocytes % 7.5 %; Neutrophils % 76.7 %; Platelet Count 256 10^3/uL (130-400); RBC 3.63 10^6/uL (4.36-5.78); RDW 12.4 % (11.8-14.1); RDW-SD 44.5 fL; WBC 4.93 10^3/uL (4.4-10.8)
[2024-01-21 12:06] LABS: ALT 19 U/L (16-63); AST 14 U/L (15-37); Albumin 3.5 g/dL (3.4-5.0); Alkaline Phosphatase 116 U/L (46-116); Anion Gap 8.6 mmol/L (3-11); BUN 16 mg/dL (7-18); Bilirubin, Total 0.49 mg/dL (0.2-1.0); CO2 31.4 mmol/L (21.0-32.0); CREATININE 1.1 mg/dL (0.70-1.30); Calcium 9.7 mg/dL (8.5-10.1); Chloride 104 mmol/L (98-107); Estimated GFR 67.02 (mL/min/1.73m2); Glucose 86 mg/dL (74-106); Potassium 3.8 mmol/L (3.5-5.1); Sodium 144 mmol/L (136-145); Total Protein 8.6 g/dL (6.4-8.2)
[2024-01-22 09:02] LABS: IgA 52 mg/dL (85-499); IgG 633 mg/dL (610-1616); IgM 2675 mg/dL (35-242); Kappa Free Light Chain 3.79 mg/dL (0.33-1.94)
[2024-01-22 13:12] LABS: Albumin 48.8 % (55.8-66.1); Albumin g/dL 4.2 g/dL (3.6-5.2); Comment (See Note); Monoclonal Spike 21.2 % (None Seen); Monoclonal Spike g/dL 1.8 g/dL (None Seen); Total Protein 8.6 g/dL (6.3-8.2)
== END 2024-01-21 02:31 | disposition home or self-care (01) ==
LOC: LBO 02:30
PROVIDERS: PCP Family Medicine; Visit Provider Nurse Practitioner Family
DX: D47.2 Monoclonal gammopathy (principal)
CPT/HCPCS: 36415; 80053; 82784; 83883; 84165; 85025

== ENCOUNTER → 2024-02-03 14:13 | Outpatient (BNVA) | payer MEDICARE, SELFPAY | PROVIDERS: PCP Family Medicine; Referring Provider Family Medicine; Visit Provider Nurse Practitioner Gerontology | DX: N40.1 Benign prostatic hyperplasia with lower urinary tract symptoms (principal); N13.8 Other obstructive and reflux uropathy; R33.8 Other retention of urine | CPT/HCPCS: 51798; 99213 ==

== ENCOUNTER → 2024-08-03 14:40 | Outpatient (BNVA) | payer MEDICARE, SELFPAY | PROVIDERS: PCP Family Medicine; Referring Provider Family Medicine; Visit Provider Nurse Practitioner Gerontology | DX: N40.1 Benign prostatic hyperplasia with lower urinary tract symptoms (principal); N13.8 Other obstructive and reflux uropathy; R33.9 Retention of urine, unspecified; R39.9 Unspecified symptoms and signs involving the genitourinary system; Z87.448 Personal history of other diseases of urinary system | CPT/HCPCS: 99214 ==

== ENCOUNTER 2024-11-21 15:05 | Outpatient (REF) | payer MEDICARE, SELFPAY ==
[2024-11-21 15:43] LABS: Glucose Negative (Negative)
[2024-11-21 15:50] LABS: C & S Indicated? Yes; RBC Negative HPF (0-2); WBC 20-50 HPF (0-5)
== END 2024-11-21 15:06 | disposition home or self-care (01) ==
LOC: NCHCN 15:05
PROVIDERS: PCP Family Medicine; Visit Provider Family Medicine
DX: R30.0 Dysuria (principal)
CPT/HCPCS: 81003; 81015; 87086

== ENCOUNTER → 2024-12-01 09:38 | Outpatient (BNVA) | payer MEDICARE, SELFPAY | PROVIDERS: PCP Family Medicine; Referring Provider Family Medicine; Visit Provider Physical Therapy Assistant | DX: Z12.11 Encounter for screening for malignant neoplasm of colon (principal); Z86.0101 Personal history of adenomatous and serrated colon polyps | CPT/HCPCS: S0285 ==

== ENCOUNTER 2024-12-16 06:41 | Day surgery (SDC) | payer MEDICARE, SELFPAY ==
--- NOTE | 2024-12-15 19:15 | W.PM.DSUDISC ---
Date of service: 12/16/24 Discharge Plan Disposition Patient Disposition: Home Condition: Good Discharge Details Reason For Visit: screening colonoscopy Attending Provider: Farzad Phillip Primary Care Provider: Maria R Woods Home Meds and New Rx's Prescriptions: Continued lisinopril 5 mg tablet 10 mg PO DAILY simvastatin 40 mg tablet 40 mg PO QHS melatonin 3 mg capsule 3 mg PO HS PRN cholecalciferol (vitamin D3) 50 mcg (2,000 unit) capsule 50 mcg PO DAILY Patient Comments: 4000units gabapentin 600 mg tablet See Rx Instructions .ROUTE .COMPLEX Qty: 270 3RF Dose Instruction: TAKE 1 TABLET BY MOUTH 3 TIMES DAILY Patient Comments: morning Rx Instructions: TAKE 1 TABLET BY MOUTH 3 TIMES DAILY gabapentin 300 mg capsule 300 mg PO QHS Qty: 90 3RF Rx Instructions: Take in addition to 600 mg evening dose for a total of 900 mg escitalopram oxalate 10 mg tablet 20 mg PO DAILY lamotrigine [Lamictal] 100 mg tablet 150 mg PO BID mecobalamin (vitamin B12) 1,000 mcg tablet,chewable 1,000 mcg PO DAILY tamsulosin 0.4 mg capsule See Rx Instructions .ROUTE .COMPLEX Qty: 180 2RF Dose Instruction: TAKE 2 CAPSULES BY MOUTH ONCE DAILY Rx Instructions: TAKE 2 CAPSULES BY MOUTH ONCE DAILY finasteride 5 mg tablet 5 mg PO DAILY Qty: 90 3RF omeprazole 40 MG capsule,delayed release(DR/EC) 40 mg PO DAILY mirtazapine 7.5 mg tablet 7.5 mg PO QHS Discontinued bisacodyl [Dulcolax (bisacodyl)] 5 mg tablet,delayed release (DR/EC) 5 mg PO ONCE Qty: 4 0RF Rx Instructions: Take per colonoscopy instructions provided by ordering providers office polyethylene glycol 3350 17 gram/dose powder 17 g PO ONCE Qty: 238 0RF Rx Instructions: Take per colonoscopy instructions provided by ordering providers office Discharge Instructions Instructions: Colon polyps, Diverticulosis Additional Instructions: Diego, was a pleasure to meet you today, and hope you feel well after the procedure. Things went very smoothly. I did find, removed 2 polyps today. These are both quite small, nothing to worry about. I will send these off to the pathologist for them to double check, but is hard for me to imagine that anything else needs to be done for these. Current recommendation for screening colonoscopies is to discontinue at age 86. Certainly, if the pathology shows anything out of the ordinary I will let you know. If you need anything or have any questions at all, please do not hesitate to ask at any time. 1. If tolerated, consume a soft, low fiber diet for 1-2 days. 2[address] Do not drive, drink alcohol, operate machinery, make critical decisions, or do activities that require coordination or balance for 24 hours. 3. Because air was put into your colon during the procedure, expelling air from your rectum (passing gas or farting) is normal. 4. You may not have a bowel movement for 1-3 days because of the colonoscopy prep. This is normal. 5. Go directly to the emergency room if you notice any of the following: Develop chills (warm to touch), or if you have a thermometer and your temperature is above 101 Difficulty breathing or difficultly swallowing Persistent vomiting Severe abdominal pain, other than gas cramps Severe chest pain Black, tarry stools Any bleeding ? exceeding one tablespoon 6. Call your physician if the site where your intravenous was started becomes red, swollen, painful, and warm to touch. 7. Your physician has reviewed your pre-procedure medications. Please continue to take those medications as previously ordered. You will be given specific information/education regarding any changes to your medications before leaving. Stand Alone Forms: Anesthesia Discharge Inst., Colonoscopy Post Instructions, Ej Lau (DSU) Activity:: Activity as Tolerated Diet:: As Tolerated Discharge Orders Discharge Orders: Discharge Order (Routine); Ordered 12/15/24 Ordered By: Farzad Phillip DS: Diagnosis Discharge Diagnosis (1) Encounter for screening colonoscopy: Status: Acute Asessment and Plan: Follow-up on polypectomy results
--- NOTE | 2024-12-15 19:25 | COLE_ITS ---
Date of service: 12/16/24 Time of Service: 09:19 Colonoscopy Report Date of procedure: 12/16/24 Pre-op diagnosis general: screening colonoscopy Procedure: colonoscopy with polypectomy Surgeon: aFrzad Phillip Anesthesia Type: General:No Airway Estimated blood loss (mL): 5 Pathology: other (0.25 cm flat polyp at 120 cm, 0.25 cm flat polyp at 40 cm) Complications: None Disposition: same day Indications: Diego is an 84 year old man with history of adenomatous polyps who needs his next screening colonoscopy Prep: Miralax/Dulcolax Procedure Start Time: 08:42 Procedure End Time: 09:11 Retraction Time: 13 Findings: 0.25 cm flat polyp at 120 cm, 0.25 cm flat polyp at 40 cm Procedure Description: After the induction of anesthesia, and with the patient in left lateral decubitus position, I began by performing an external anorectal exam.? Perineum and skin were normal, as was the anal verge.? There was no evidence of external hemorrhoids.? Next, I performed a digital rectal exam.? This was normal.? Next, I advanced a colonoscope into the rectal vault.? I performed retroflexion.? This appeared normal.? Using insufflation, I then advanced the colonoscope beyond the rectal folds and into the sigmoid colon before advancing towards the cecum.?The scope was noted to be in the cecum by identification of the ileocecal valve and appendiceal orifice.? I then began withdrawing the colonoscope using repeated irrigation as necessary for full evaluation of the colonic mucosa. Around 120 cm from the anal verge was a 0.5 cm flat polyp. Narrowband imaging was used to assist with the analysis. Clinical features appeared consistent with an adenomatous polyp. This was removed with cold forceps with no significant bleeding. Similarly, around 40 cm from the anal verge was another flat polyp. This was also less than 0.25 cm and also flat. I removed this with cold forceps without issue as well. There is some sigmoid diverticulosis. Once the scope was withdrawn to the level of the rectum, great care was taken to examine portions of the rectal folds.? Finally, the scope was withdrawn and the patient was brought to the same-day surgery recovery unit as the anesthetic wore off. ?The findings and instructions were shared with the patient prior to discharge. [place] Bowel Prep [place] Bowel Prep Right Colon: 3 Left Colon: 2 Transverse Colon: 3 Total Score: 8
[2024-12-16 07:21] VITALS: BP 141/81; PULSE 83; RESP 18; TEMP 36.6; O2SAT 97
[2024-12-16] MEDS: Lactated Ringers 1,000 ML 80 ML IV (07:40)
--- NOTE | 2024-12-16 08:03 | W.ANESPRE ---
General Info Date of Service Date Performed: 12/16/24 Height: 6 ft 1 in Weight: 82.5 kg Body Mass Index (BMI): 24.0 Surgical Procedure: Operation Date: 12/16/24 08:35 Proposed Procedure Side Surgeon sean Phillip MD Meds Allergies and Home Medications Allergies Allergy/AdvReac Type Severity Reaction Status Date / Time Penicillins Allergy Intermediate hands and Verified 12/16/24 07:13 feet swell Home Medication ?Medication ?Instructions ?Recorded omeprazole 40 mg capsule,delayed 40 mg PO DAILY 09/09/12 release simvastatin 40 mg tablet 40 mg PO QHS 03/27/20 gabapentin 600 mg tablet See Rx Instructions .Route 10/07/22 .COMPLEX #270 tabs lisinopril 5 mg tablet 10 mg PO DAILY 11/25/22 gabapentin 300 mg capsule 300 mg PO QHS #90 caps 01/13/23 escitalopram oxalate 10 mg tablet 20 mg PO DAILY 08/11/23 lamotrigine 100 mg tablet 150 mg PO BID 08/11/23 (Lamictal) cholecalciferol (vitamin D3) 50 50 mcg PO DAILY 09/15/23 mcg (2,000 unit) capsule melatonin 3 mg capsule 3 mg PO HS PRN 09/15/23 mecobalamin (vitamin B12) 1,000 1,000 mcg PO DAILY 09/07/24 mcg chewable tablet tamsulosin 0.4 mg capsule See Rx Instructions .Route 10/11/24 .COMPLEX #180 caps finasteride 5 mg tablet 5 mg PO DAILY #90 tabs 12/13/24 mirtazapine 7.5 mg tablet 7.5 mg PO QHS 12/15/24 Current Visit Medications: Current Medications Generic Name Dose Route Start Last Admin Trade Name Freq PRN Reason Stop Dose Admin Ringer's Solution 1,000 mls @ 80 mls/hr 12/16/24 06:00 12/16/24 07:40 IV 12/16/24 23:59 80 mls/hr INFUSION GRANT Administration IV Miscellaneous Supplies 1 each 12/16/24 06:00 Iv Access IV 12/16/24 23:59 DIRECTED GRANT Sodium Chloride 0 ml 12/16/24 06:00 Normal Saline Flush 10 Ml Syr IV 12/16/24 23:59 PRN PRN Sodium Chloride 0 ml 12/16/24 06:00 Normal Saline 10 Ml Vial IJ 12/16/24 23:59 DIRECTED PRN Sterile Water 0 ml 12/16/24 06:00 Water,Injection,Sterile 10 Ml Vial IJ 12/16/24 23:59 DIRECTED PRN PFSH Active Problems Active Problems: Problem Status Onset Code Fracture of greater trochanter of left femur Acute S72.112A Disorder of the skin and subcutaneous tissue, unspecified Acute L98.9 Parkinson's plus syndrome Acute G20 Incomplete bladder emptying Acute R33.9 Solitary thyroid nodule Acute E04.1 Tremor Acute R25.1 Monoclonal gammopathy Acute D47.2 Hypertension Chronic I10 Urinary incontinence Acute R32 Serrated adenoma of colon Acute D12.6 Hyperplastic colon polyp Acute K63.5 Tubular adenoma of colon Acute D12.6 Suicidal ideation Acute R45.851 Screening for colon cancer Acute Z12.11 Memory loss Chronic R41.3 Tardive dyskinesia Chronic G24.01 Parkinsonism Chronic G20 Adenoma of colon Acute D12.6 Dyspnea Acute R06.00 Medical History Medical History Skin lesion of cheek Benign. Removed 10/20/[address] Morfin. Left cheek-melanocytic nevus. Right cheek- sebaceous hyperplasia. 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 denies this Essential tremor Peripheral neuropathy Inguinal hernia Dyspepsia Lipoma Thyroid nodule Hyperlipidemia BPH (benign prostatic hyperplasia) Hyponatremia Neutropenia Ankle fracture, right UTI (urinary tract infection) (09/13/14) Depression Surgical History Surgical History H/O removal of testicle Right 6 months of age History of appendectomy History of colonoscopy (~11/2021) History of lung surgery biopsy Hx of cholecystectomy ankle H/O surgical procedure a. appendectomy b. cholecystectomy c. resection of benign tumor right lung Tobacco Smoking/Tobacco Use Status: Former Tobacco Use Alcohol Alcohol Intake: never Substance Use Substance use: Never Substance use type: does not use Vital Signs and Lab Results Vital Signs Most Recent Vital Signs in EMR: Most Recent Vital Signs Temp Pulse Resp BP Pulse Ox 36.6 C 83 18 141/81 H 97 12/16/24 07:21 12/16/24 07:21 12/16/24 07:21 12/16/24 07:21 12/16/24 07:21 Imaging and Studies Imaging and Studies Study information below may be from another EMR and interpreted by another provider. Please see original notes in EMR for more complete details. Stress Test Summary: 01/2019: no EKG evidence of ischemia. normal stress test. Anesthesia Assessment and Plan Anesthesia History Personal History: No History of Anesthesia Complications Family History: No Family History of Anesthesia Complications Exercise Tolerance Exercise Tolerance: Metabolic Equivalents>4 Pertinent Negatives Pertinent Negatives: No Symptoms of GERD Cardiac & Pulmonary Exam Cardiac Exam: Normal S1/S2 Heart Sounds Pulmonary Exam: Clear Bilateral Breath Sounds Implantable Cardiac Device Does patient have a Pacemaker or an ICD?: No Airway Exam Known Difficult Airway: No Mallampati Class: 2 Mouth Opening: Normal (> 3cm) Thyromental Distance: Greater than 3 cm Neck Range of Motion: Full ROM Neck Circumference: Normal Teeth Condition: Normal Dentition ASA Classification ASA Score: ASA 2 Emergency Case?: No NPO Status NPO Status: NPO Clears >2 hours, Solids >8 hours Anesthesia Plan Resuscitation Status: Full Code Anesthesia Technique: General Anesthesia Airway Planned: Natural Airway Monitors Used: Standard Monitors
[2024-12-16 08:08] VITALS: BMI 24.0
--- NOTE | 2024-12-16 09:03 | BOWEL_PTH ---
PATIENT: Diego Cummings LOC: [facility] U#:[id number] AGE/SX: 84/M ROOM: RE12/16/[address]: Farzad Phillip MD : 1940 BED: DIS: 12/16/2024 SPEC #: [id number] RECD: 12/16/24 09:41 STATUS: RADHA REMaria Guadalupe #: [id number] GUCCI: 12/16/24 09:[address]: Farzad Phillip DEPT: Surgical Specimen RECD BY: Maryuri Duckworth ENTERED: 12/16/24 09:42 SP TYPE: Bowel OTHR DR: Maria R Woods Tissues: 1 - BIOPSY BOWEL 2 - BIOPSY BOWEL Procedures: GROSS AND MICRO LEVEL 4 Comments: [id number]
[2024-12-16 09:13] VITALS: BP 110/66; PULSE 68; RESP 18; TEMP 36.5; O2SAT 97
--- NOTE | 2024-12-16 09:30 | W.ANESPOSTOP ---
Postoperative Evaluation Date, Time and Location Date Performed: 12/16/24 Time Performed: 09:30 Patient Location: Day Surgery Unit Vital Signs Most Recent Imported Vital Signs: Most Recent Vital Signs Temp Pulse Resp BP Pulse Ox 36.5 C 68 18 110/66 97 12/16/24 09:13 12/16/24 09:13 12/16/24 09:13 12/16/24 09:13 12/16/24 09:13 Pain Score Most Recent Pain Score: Most Recent Pain Score Pain Level 0 12/16/24 09:13 Assessment Mental Status: Awake (Alert & Oriented to Patient Baseline) Airway and Respiratory Function: Patent airway with normal (patient baseline) respiratory exam Cardiovascular Function: Hemodynamically Stable Hydration Status: Adequately Hydrated Nausea & Vomiting: No Nausea or Vomiting Pain: Pt. Denies Any Pain Peripheral Nerve Block: Patient did not receive a nerve block
[2024-12-16 09:48] VITALS: BP 126/71; PULSE 70; RESP 18; TEMP 36.3; O2SAT 100
== END 2024-12-16 10:08 | disposition home or self-care (01) ==
LOC: SUR 06:42
PROVIDERS: PCP Family Medicine; Visit Provider Surgery
PROC: 0DJD8ZZ Inspection of Lower Intestinal Tract, Via Natural or Artificial Opening Endoscopic (ICD-10-PCS; CPT 45378; principal; 2024-12-16 08:30)
DX: Z12.11 Encounter for screening for malignant neoplasm of colon (principal); D12.3 Benign neoplasm of transverse colon; K57.30 Diverticulosis of large intestine without perforation or abscess without bleeding
CPT/HCPCS: 45380; 88305; J2704

== ENCOUNTER 2025-01-04 01:52 | Outpatient (CLI) | payer MEDICARE, SELFPAY ==
[2025-01-04 09:16] LABS: Abs Immature Grans 0.01 10^3/uL (0.0-0.06); HCT 37.8 % (40.0-50.0); HGB 12.4 g/dL (13.5-17.5); Immature Grans % 0.2 %; MCH 32.0 pg (27.0-33.0); MCHC 32.8 % (32.0-36.0); MCV 98 fL (80-95); MPV 9.3 fL (8.0-11.0); Platelet Count 234 10^3/uL (130-400); RBC 3.87 10^6/uL (4.36-5.78); RDW 12.9 % (11.8-14.1); RDW-SD 45.9 fL; WBC 4.07 10^3/uL (4.4-10.8)
[2025-01-04 09:39] LABS: ALT 17 U/L (16-63); AST 11 U/L (15-37); Albumin 3.8 g/dL (3.4-5.0); Alkaline Phosphatase 80 U/L (46-116); Anion Gap 6.1 mmol/L (3-11); BUN 14 mg/dL (7-18); Bilirubin, Total 0.4 mg/dL (0.2-1.0); CO2 32.9 mmol/L (21.0-32.0); Calcium 9.7 mg/dL (8.5-10.1); Chloride 103 mmol/L (98-107); Estimated GFR 66.61 (mL/min/1.73m2); Glucose 113 mg/dL (74-106); Potassium 4.2 mmol/L (3.5-5.1); Sodium 142 mmol/L (136-145); Total Protein 8.7 g/dL (6.4-8.2)
[2025-01-04 17:42] LABS: CRP, High Sensitivity 1.77 mg/L (See Note)
[2025-01-05 10:04] LABS: Kappa Free Light Chain 3.75 mg/dL (0.33-1.94); Lambda Free Light Chain 21.50 mg/dL (0.57-2.63)
[2025-01-05 13:53] LABS: Albumin 49.7 % (55.8-66.1); Albumin g/dL 4.5 g/dL (3.6-5.2); Alpha 1 g/dL 0.30 g/dL (0.15-0.40); Alpha 2 g/dL 0.90 g/dL (0.50-1.00); Beta g/dL 0.70 g/dL (0.60-1.20); Gamma g/dL 2.70 g/dL (0.60-1.60); Monoclonal Spike g/dL 1.8 g/dL (None Seen); Total Protein 9.0 g/dL (6.3-8.2)
== END 2025-01-04 01:53 | disposition home or self-care (01) ==
LOC: LBO 01:52
PROVIDERS: PCP Family Medicine; Visit Provider Internal Medicine Hematology & Oncology
DX: D47.2 Monoclonal gammopathy (principal)
CPT/HCPCS: 36415; 80053; 82784; 86141; 83883; 84165; 85025

== ENCOUNTER → 2025-02-02 14:18 | Outpatient (BNVA) | payer MEDICARE, SELFPAY | PROVIDERS: PCP Family Medicine; Referring Provider Family Medicine; Visit Provider Nurse Practitioner Gerontology | DX: N40.1 Benign prostatic hyperplasia with lower urinary tract symptoms (principal); N13.8 Other obstructive and reflux uropathy; R33.9 Retention of urine, unspecified | CPT/HCPCS: 99214; 51798 ==